=== PATIENT | male | born 1980 | race African-American/Black ===

== ENCOUNTER 2016-10-29 08:45 | Emergency (ER) | payer SELFPAY ==
[2016-10-29] MEDS ORDERED: IBUPROFEN 800 MG TABLET PO ONE ×2 (09:21→14:40)
[2016-10-29] MEDS ORDERED: CYCLOBENZAPRINE HCL 10 MG TABLET PO ONE (09:21)
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
[2016-10-29 13:17] LABS: ABSOLUTE BASOPHILS # (AUTO) 0.1 10^3/uL (0.0-0.2); ABSOLUTE EOSINOPHILS # (AUTO) 0.2 10^3/uL (0.0-0.6); ABSOLUTE LYMPHOCYTES (AUTO) 2.6 10^3/uL (0.5-4.7); ABSOLUTE MONOCYTES (AUTO) 0.7 10^3/uL (0.1-1.4); ABSOLUTE NEUT (AUTO) 9.3 10^3/uL (1.7-8.2); BASOPHILS % (AUTO) 0.4 % (0-2); EOSINOPHILS % (AUTO) 1.7 % (0-6); HEMATOCRIT 46.6 % (37.9-51.0); HEMOGLOBIN 14.7 g/dL (13.5-17.0); HGB HCT DIFFERENCE -2.5; MEAN CORPUSCULAR HEMOGLOBIN 27.6 pg (27.0-33.4); MEAN CORPUSCULAR HGB CONC 31.6 g/dL (32.0-36.0); MEAN CORPUSCULAR VOLUME 87 fl (80-97); MONOCYTES % (AUTO) 5.3 % (3-13); RED BLOOD COUNT 5.34 10^6/uL (4.35-5.55); RED CELL DISTRIBUTION WIDTH 12.9 % (11.5-14.0); SEGMENTED NEUTROPHILS % (AUTO) 72.6 % (42-78); WHITE BLOOD COUNT 12.8 10^3/uL (4.0-10.5)
[2016-10-29 13:21] LABS: APPEARANCE,URINE CLEAR; BILIRUBIN,URINE NEGATIVE (NEGATIVE); GLUCOSE, URINE NEGATIVE (NEGATIVE); KETONES,URINE NEGATIVE (NEGATIVE); LEUKOCYTE ESTERASE,URINE NEGATIVE (NEGATIVE); NITRITE,URINE NEGATIVE (NEGATIVE); PROTEIN,URINE NEGATIVE (NEGATIVE); URINE SPECIFIC GRAVITY 1.008; UROBILINOGEN,URINE NEGATIVE mg/dL (<2.0)
[2016-10-29 13:38] LABS: URINE BARBITURATES SCREEN NEGATIVE; URINE METHADONE SCREEN NEGATIVE; URINE PHENCYCLIDINE SCREEN NEGATIVE
[2016-10-29 15:33] LABS: ALANINE AMINOTRANSFERASE 26 U/L (21-72); ALBUMIN 4.2 g/dL (3.5-5.0); ALKALINE PHOSPHATASE 42 U/L (38-126); ANION GAP 10 (5-19); ASPARTATE AMINO TRANSFERASE 23 U/L (17-59); BILIRUBIN,TOTAL 1.7 mg/dL (0.2-1.3); BLOOD UREA NITROGEN 11 mg/dL (7-20); CALCIUM 9.6 mg/dL (8.4-10.2); CARBON DIOXIDE 27 mmol/L (22-30); CHLORIDE 103 mmol/L (98-107); CREATININE RESULT 0.92 mg/dL (0.52-1.25); GLUCOSE 78 mg/dL (75-110); POTASSIUM 4.1 mmol/L (3.6-5.0); SODIUM 139.8 mmol/L (137-145); TOTAL PROTEIN 6.9 g/dL (6.3-8.2)
[2016-10-29 15:37] LABS: ALCOHOL < 10 mg/dL (NONE DETECTED)
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
--- NOTE | 2016-10-29 18:56 | EKG REPORT ---
SEVERITY:- ABNORMAL ECG - SINUS BRADYCARDIA PROBABLE LEFT VENTRICULAR HYPERTROPHY : Confirmed by: Brenden Molina MD 29-Oct-2016 18:56:01
[2016-10-29] MEDS ORDERED: LORAZEPAM 1 MG TABLET PO ONE (20:25)
[2016-10-29] MEDS ORDERED: CARBAMAZEPINE 200 MG TABLET PO SCH (20:30)
--- NOTE | 2016-10-30 09:16 | ER Document Report ---
Doctor's Note Notes: 10/30/16 09:16 Patient seen this morning in mental health rounds. Has no complaints. Results and vital signs reviewed. Awaiting psychiatric disposition. 10/30/16 12:41 Psychiatric team has made some med recommendations. Orders placed.
--- NOTE | 2016-10-30 11:57 | PSYCHOLOGICAL NOTE ---
Psych Note - Psych Note Psych Note: Clinician conducted check in with patient. Impression\\plan on was that the patient was recommended for IVC; he is currently has impaired insight, judgment and impulse control is a danger to himself. Reevaluation was conducted. Patient states that he is feeling much better this morning because his girlfriend told him that she might be . He continued disclosed that he is very excited about this; to be the father of his biological child. He continued disclosed concern on when he will be released because his girlfriend's daughter has been talking to an older man and they are to meet a calender supervisor today to discuss this. He continued disclosed that he understands how things work now. He spoke with his father and his father told him to stop telling "us" what he is thinking; "keep conversations A and B" so people do not misunderstand him. Patient continued to disclose concerns that he has been unable to eat the food provided because he does not eat pork or food that has been not been prepared in front of him. When asked if the patient would like his light on or off upon the conclusion of the evaluation patient stated "I don't know how to answer you, if I give you the wrong answer you might hold it against me." Patient is recommended to continue under IVC his continued delusions impair his ability of insight judgment and impulse control is a danger to himself. Patient is recommended for placement for inpatient treatment. Dr. Gibbons was consulted on this patient; tending physician is in agreement with recommendations and disposition.
[2016-10-30] MEDS ORDERED: ZIPRASIDONE MESYLATE INJ/PF 20 MG SDV IM PRN (12:02)
[2016-10-30] MEDS ORDERED: BENZTROPINE MESYLATE INJ 2 MG/2 ML AMPULE IM SCH (12:22)
[2016-10-30] MEDS: HALOPERIDOL LACTATE INJ 5 MG/1 ML VIAL IM SCH (12:46)
[2016-10-30] MEDS ORDERED: DIPHENHYDRAMINE HCL 50 MG/ML VIAL ONE (13:23)
[2016-10-30] MEDS ORDERED: CARBAMAZEPINE 200 MG TABLET PO SCH (18:00)
[2016-10-31] MEDS ORDERED: BENZTROPINE MESYLATE INJ 2 MG/2 ML AMPULE IM SCH (10:00)
[2016-10-31] MEDS ORDERED: HALOPERIDOL LACTATE INJ 5 MG/1 ML VIAL IM SCH (12:00)
[2016-10-31] MEDS: HALOPERIDOL LACTATE INJ 5 MG/1 ML VIAL IM SCH ×2 (12:10)
[2016-10-31 12:20] VITALS: BP 147/94
--- NOTE | 2016-10-31 12:44 | PSYCHOLOGICAL NOTE ---
Psych Note - Psych Note Psych Note: Clinician conducted reevaluation. Patient is recommended for rescind of IVC is considered psychiatrically cleared for discharge. Patient was able to discuss his difficulties in communication. He continued to discuss that he does not remember the first round of medications he received however he does remember receiving some last night. Patient denies suicidal homicidal ideations; no delusions are currently noted. Patient will follow-up with out patient mental health services through [facility]. Patient's girlfriend Izzy agrees to be patient's safety resource. Patient is psychiatrically cleared for discharge. Dr. Gibbons was consulted on this patient; attending physician is in agreement with recommendations and disposition.
--- NOTE | 2016-10-31 12:55 | ER Document Report ---
Doctor's Note Notes: 10/31/16 12:54 Rounds: Chart reviewed and patient interviewed. Vital signs remained stable. Lab studies were only remarkable for having a white count of 12,800 and a bilirubin level of 1.7 with normal LFTs. Also positive for marijuana on his drug screen. Patient is doing much better and mental health feels that he can be discharged home for outpatient follow-up at [facility] Wednesday, as an outpatient. Being discharged on Haldol and Cogentin. Ashvin Washington M.D.
== END 2016-10-31 13:00 | disposition home or self-care (01) ==
LOC: ER 08:45
DX: R45.851 Suicidal ideations (principal); S16.1XXA Strain of muscle, fascia and tendon at neck level, initial encounter; F17.210 Nicotine dependence, cigarettes, uncomplicated; W01.0XXA Fall on same level from slipping, tripping and stumbling without subsequent striking against object, initial encounter; F32.9 Major depressive disorder, single episode, unspecified; F12.99 Cannabis use, unspecified with unspecified cannabis-induced disorder
CPT/HCPCS: 93005; 99285; 96372; 36415; 80307 ×4; 85025; 80053; 81001; 72040; 93010; J0515; J1630 ×2

== ENCOUNTER 2017-08-20 14:29 | Emergency (ER) | payer SELFPAY ==
--- NOTE | 2017-08-20 15:22 | ER Document Report ---
ED General - General Chief Complaint: Low Blood Sugar Stated Complaint: CHEST PAIN Time Seen by Provider: 08/20/17 15:02 Notes: A 37-year-old male was at the dentist for a infected wisdom tooth. Was seen by the dentist but the dentist decided that the extraction was going to be too complicated to put him on some antibiotics and told him he needed to see a oral surgeon. Given some Tylenol with codeine and a clindamycin in the office. Before he could leave the office he passed out. Ambulance arrived. Blood sugar was 60 IV was established by EMS. Please see run report. Patient complaining of pain in the left lower wisdom tooth. Prior history of diabetes. Not on any medications other than Tylenol with codeine and clindamycin. States that he has not been eating because it hurts too bad to eat. Does state that he has a burning in his chest that goes from his tooth down to his chest and into his abdomen. Offered patient fluids and a workup but patient states all he wants is the IV to be removed and wants to go home. Does not want anything for pain. Does not want IV fluids. Does not want any workup done today. TRAVEL OUTSIDE OF THE [place] IN LAST 30 DAYS: No - HPI Onset: Just prior to arrival Onset/Duration: Sudden - Related Data Allergies/Adverse Reactions: No Known Allergies Allergy (Verified 08/20/17 00:34) Past Medical History - General Information source: Patient - Social History Smoking Status: Smoker,Current Status Unk Frequency of alcohol use: None Drug Abuse: None Lives with: Spouse/Significant other Family History: Reviewed & Not Pertinent Neurological Medical History: Reports: Hx Seizures Renal/ Medical History: Denies: Hx Peritoneal Dialysis Review of Systems - Review of Systems Constitutional: No symptoms reported, Weakness EENT: No symptoms reported, Other - Dental pain Cardiovascular: No symptoms reported Respiratory: No symptoms reported Gastrointestinal: No symptoms reported Genitourinary: No symptoms reported Male Genitourinary: No symptoms reported Musculoskeletal: No symptoms reported Skin: No symptoms reported Hematologic/Lymphatic: No symptoms reported Neurological/Psychological: No symptoms reported Physical Exam - Vital signs Vitals: Temp Pulse Resp BP Pulse Ox 97.5 F 57 L 18 124/93 H 100 08/20/17 15:43 08/20/17 15:43 08/20/17 15:43 08/20/17 15:43 08/20/17 15:43 Interpretation: Normal - General General appearance: Appears well, Alert - HEENT Head: Normocephalic, Atraumatic Eyes: Normal Pupils: PERRL Mucous membranes: Moist - There is a obvious dental caries of the left lower molar. No obvious abscess. - Respiratory Respiratory status: No respiratory distress Chest status: Nontender Breath sounds: Normal Chest palpation: Normal - Cardiovascular Rhythm: Regular Heart sounds: Normal auscultation Murmur: No - Abdominal Inspection: Normal Distension: No distension Bowel sounds: Normal Tenderness: Nontender Organomegaly: No organomegaly - Back Back: Normal, Nontender - Extremities General upper extremity: Normal inspection, Nontender, Normal color, Normal ROM , Normal temperature General lower extremity: Normal inspection, Nontender, Normal color, Normal ROM , Normal temperature, Normal weight bearing. No: Lashaun's sign - Neurological Neuro grossly intact: Yes Cognition: Normal Orientation: AAOx4 [place] Coma Scale Eye Opening: Spontaneous [place] Coma Scale Verbal: Oriented [place] Coma Scale Motor: Obeys Commands [place] Coma Scale Total: 15 Speech: Normal Motor strength normal: LUE, RUE, LLE, RLE Sensory: Normal - Psychological Associated symptoms: Normal affect, Normal mood - Skin Skin Temperature: Warm Skin Moisture: Dry Skin Color: Normal Course - Re-evaluation Re-evalutation: 08/20/17 15:39 Patient likely a little hypoglycemic because he has not been eating. I wanted to give patient some IV fluids, Toradol, chest x-ray but patient does not want any of this at this time. Wants some orange juice and wants to go home. Will DC at this time. 08/20/17 17:16 Chest X-Ray 08/20/17 15:55 IMPRESSION: NO SIGNIFICANT RADIOGRAPHIC FINDING IN THE CHEST. - Vital Signs Vital signs: Temp Pulse Resp BP Pulse Ox 97.5 F 57 L 18 124/93 H 100 08/20/17 15:43 08/20/17 15:43 08/20/17 15:43 08/20/17 15:43 08/20/17 15:43 - EKG Interpretation by Hi EKG shows normal: Sinus rhythm, [place], Intervals, QRS Complexes, ST-T Waves Discharge - Discharge Clinical Impression: Hypoglycemia, Dental caries Condition: Good Disposition: HOME, SELF-CARE Instructions: Hypoglycemia ([facility]), Dental Infection or Abscess ([facility]) Additional Instructions: Please make sure that you are at least getting liquids with some calories. Try juice, Ensure or other meal replacement drinks to make sure that you are getting calories and sugar. Your blood sugar was a little low this morning when EMS arrived. I have included some information regarding some clinics here in town which may be able to assist you with dental and medical needs. If you have any further concerns please return to the emergency department. Referrals: [facility] [Provider Group] - Follow up as needed [facility] [Provider Group] - Follow up as needed
--- NOTE | 2017-08-20 16:27 | RADIOLOGY REPORT (SQ) ---
EXAM DESCRIPTION: CHEST PA/LAT COMPLETED DATE/TIME: 08/20/2017 4:11 pm REASON FOR STUDY: chest pain COMPARISON: 09/14/2016 EXAM PARAMETERS: NUMBER OF VIEWS: two views TECHNIQUE: Digital Frontal and Lateral radiographic views of the chest acquired. RADIATION DOSE: NA LIMITATIONS: none FINDINGS: LUNGS AND PLEURA: No opacities, masses or pneumothorax. No pleural effusion. MEDIASTINUM AND HILAR STRUCTURES: No masses or contour abnormalities. HEART AND VASCULAR STRUCTURES: Heart normal size. No evidence for failure. BONES: No acute findings. HARDWARE: None in the chest. OTHER: No other significant finding. IMPRESSION: NO SIGNIFICANT RADIOGRAPHIC FINDING IN THE CHEST. TECHNICAL DOCUMENTATION: JOB ID: [id number] [employer]- All Rights Reserved
[2017-08-20 17:36] VITALS: BP 121/75
--- NOTE | 2017-08-20 18:33 | EKG REPORT ---
SEVERITY:- NORMAL ECG - SINUS RHYTHM : Confirmed by: Brenden Molina MD 20-Aug-2017 18:32:44
== END 2017-08-20 17:44 | disposition home or self-care (01) ==
LOC: ER 14:29
DX: K02.9 Dental caries, unspecified (principal); E11.649 Type 2 diabetes mellitus with hypoglycemia without coma; R07.9 Chest pain, unspecified; K08.89 Other specified disorders of teeth and supporting structures; F17.200 Nicotine dependence, unspecified, uncomplicated; Z79.899 Other long term (current) drug therapy
CPT/HCPCS: 71020; 82962; 93005; 93010; 99284

== ENCOUNTER 2017-09-11 12:39 | Emergency (ER) | payer SELFPAY ==
[2017-09-11] MEDS ORDERED: DEXAMETHASONE SOD PHOS INJ 10 MG/1 ML VIAL IM ONE (14:19)
[2017-09-11] MEDS ORDERED: KETOROLAC TROMETHAMINE 60 MG/2 ML SDV IM ONE (14:19)
[2017-09-11] MEDS ORDERED: CYCLOBENZAPRINE HCL 10 MG TABLET PO ONE (14:19)
--- NOTE | 2017-09-11 14:26 | ER Document Report ---
ED Neck/Back Problem - General Chief Complaint: Neck and Upper Back Pain Stated Complaint: NECK AND BACK PAIN NUMBNESS Time Seen by Provider: 09/11/17 14:09 Mode of Arrival: Ambulatory Information source: Patient Notes: 37-year-old male presents to ED for complaint of neck and upper back pain for the last 3 days. States he was lifting furniture 3 days ago and has had severe pain in his neck and back since then. States it is hurts to turn or bend his neck . TRAVEL OUTSIDE OF THE [place] IN LAST 30 DAYS: No - HPI Patient complains to provider of: Pain, Neck, Upper back Onset: Other - 3 days Onset: Sudden Timing: Waxing and waning Quality of pain: Burning, Sharp Severity: Severe Pain Level: 5 Context: Bending, Turning Recent injury: Possibly Associated symptoms: Upper back pain - and neck. denies: Constipation, Fever, Incontinence, Motor loss, Numbness/tingling, Radiation to arm, Radiation to chest, Radiation to leg, Sensory loss, Lower back pain Exacerbated by: Movement of neck Relieved by: Nothing Similar symptoms previously: Yes Recently seen / treated by doctor: Yes - Related Data Allergies/Adverse Reactions: No Known Allergies Allergy (Verified 09/11/17 12:40) Past Medical History - General Information source: Patient - Social History Smoking Status: Current Every Day Smoker Cigarette use (# per day): No Chew tobacco use (# tins/day): No Smoking Education Provided: No Frequency of alcohol use: None Drug Abuse: None Lives with: Spouse/Significant other Family History: Reviewed & Not Pertinent Patient has suicidal ideation: No Patient has homicidal ideation: No - Past Medical History Cardiac Medical History: Reports: None Pulmonary Medical History: Reports: None EENT Medical History: Reports: None Neurological Medical History: Reports: Hx Seizures Endocrine Medical History: Reports: None Renal/ Medical History: Reports: None Malignancy Medical History: Reports None GI Medical History: Reports: None Musculoskeltal Medical History: Reports None Skin Medical History: Reports None Psychiatric Medical History: Reports: None Traumatic Medical History: Reports: None Infectious Medical History: Reports: None Surgical Hx: Negative Past Surgical History: Reports: None Review of Systems - Review of Systems Constitutional: No symptoms reported EENT: No symptoms reported Cardiovascular: No symptoms reported Respiratory: No symptoms reported Gastrointestinal: No symptoms reported Genitourinary: No symptoms reported Male Genitourinary: No symptoms reported Musculoskeletal: Back pain, Muscle pain, Muscle stiffness, Neck pain Skin: No symptoms reported Hematologic/Lymphatic: No symptoms reported Neurological/Psychological: No symptoms reported -: Yes All other systems reviewed and negative Physical Exam - Vital signs Vitals: Temp Pulse Resp BP Pulse Ox 98.0 F 63 16 128/84 H 99 09/11/17 12:48 09/11/17 12:48 09/11/17 12:48 09/11/17 12:48 09/11/17 12:48 Interpretation: Normal - General General appearance: Appears well, Alert - HEENT Head: Normocephalic, Atraumatic Eyes: Normal Pupils: PERRL - Respiratory Respiratory status: No respiratory distress Chest status: Nontender Breath sounds: Normal Chest palpation: Normal - Cardiovascular Rhythm: Regular Heart sounds: Normal auscultation Murmur: No - Abdominal Inspection: Normal Distension: No distension Bowel sounds: Normal Tenderness: Nontender Organomegaly: No organomegaly - Back Back: Normal, Tender - Neck upper back left shoulder, Vertebra tenderness. No: Deformity/step-off, CVA tenderness, Scars, Scoliosis, Wounds, Other - Extremities General upper extremity: Normal inspection, Normal color, Normal ROM, Normal temperature General lower extremity: Normal inspection, Nontender, Normal color, Normal ROM , Normal temperature, Normal weight bearing. No: Lashaun's sign Shoulder: Tender - Neurological Neuro grossly intact: Yes Cognition: Normal Orientation: AAOx4 [place] Coma Scale Eye Opening: Spontaneous [place] Coma Scale Verbal: Oriented [place] Coma Scale Motor: Obeys Commands [place] Coma Scale Total: 15 Speech: Normal Motor strength normal: LUE, RUE, LLE, RLE Sensory: Normal - Psychological Associated symptoms: Normal affect, Normal mood - Skin Skin Temperature: Warm Skin Moisture: Dry Skin Color: Normal Course - Re-evaluation Re-evalutation: 09/11/17 16:19 No acute changes known to CT of the head or neck. These were discussed with patient and a written report of the PET CT is given to the patient. Patient was treated with Toradol Decadron and Flexeril in the emergency room and discharged home with prescription for naproxen and Flexeril. Patient was given a list of local primary doctors and instructed to follow-up with primary doctor. Patient is given instructions for shoulder exercises hot and cold packs. - Vital Signs Vital signs: Temp Pulse Resp BP Pulse Ox 98.3 F 58 L 18 128/105 H 96 09/11/17 16:32 09/11/17 16:32 09/11/17 16:32 09/11/17 16:32 09/11/17 16:32 - Diagnostic Test Radiology reviewed: Image reviewed, Reports reviewed Discharge - Discharge Clinical Impression: Upper back pain Cervical strain, acute Qualifiers: Encounter type: initial encounter Qualified Code(s): S16.1XXA - Strain of muscle, fascia and tendon at neck level, initial encounter Condition: Stable Disposition: HOME, SELF-CARE Instructions: Family Physicians / Practices Additional Instructions: NECK INJURY (CERVICAL STRAIN): You have a neck strain. This is an injury to the muscles and ligaments in the neck. There is no evidence of a fracture of the neck bones. Also, no injury to the spinal cord or nerve roots was detected. Usually, stiffness and pain INCREASE for the first 24-48 hours after the injury. The pain will gradually resolve and the neck will become more mobile. Most patients are back at work or school within a few days. Typically, complete healing takes about two or three weeks. The usual initial treatment is rest and cold packs. A neck collar may be placed to keep the muscles of the neck at rest. Antiinflammatory and muscle relaxing medication are often used to reduce the spasm and irritation. You should call the doctor, or go to the hospital, if you develop numbness or weakness in any extremity, problems with your bladder or bowel, or pain radiating down the arms. MUSCLE STRAIN: You have strained a muscle -- torn the fibers within the muscle. This often occurs with strenuous exertion, or during an injury that suddenly stretches the muscle. The seriousness of a strain varies. Some strains heal within days, others cause problems for months. X-rays cannot show a muscle strain. X-rays are taken only if symptoms suggest that a fracture could be present. The usual treatment of a muscle strain is rest and ice packs. Sometimes, a sling, splint, or crutches may be necessary to rest the muscle. The muscle can be used again once pain subsides. Severe strains require a special exercise and stretching program to prevent permanent stiffness and disability. Your doctor will advise you if this will be necessary. Call the doctor immediately if pain or swelling becomes severe, or if numbness or discoloration develop. USE OF TYLENOL (ACETAMINOPHEN): Acetaminophen may be taken for pain relief or fever control. It's much safer than aspirin, offering a wider range of "safe" dosages. It is safe during . Some brand names are Tylenol, Panadol, Datril, Anacin 3, Tempra, and Liquiprin. Acetaminophen can be repeated every four hours. The following are maximum recommended dosages: WEIGHT Dose Drops Elixir Chewable( 80mg) (LBS.) drprs=droppers tsp=teaspoon 6 40 mg 0.4 ml (1/2) 6-11 80 mg 0.8 ml (full) tsp 1 tab 12-16 120 mg 1 1/2 drprs 3/4 tsp 1 1/2 tabs 17-23 160 mg 2 drprs 1 tsp 2 tabs 24-30 240 mg 3 drprs 1 1/2 tsp 3 tabs 30-35 320 mg 2 tsp 4 tabs 36-41 360 mg 2 1/4 tsp 4 1/2 tabs 42-47 400 mg 2 1/2 tsp 5 tabs 48-53 480 mg 3 tsp 6 tabs 54-59 520 mg 3 1/4 tsp 6 1/2 tabs 60-64 560 mg 3 1/2 tsp 7 tabs 65-70 600 mg 3 3/4 tsp 7 1/2 tabs 71-76 640 mg 4 tsp 8 tabs 77-82 720 mg 4 1/2 tsp 9 tabs 83-88 800 mg 5 tsp 10 tabs >89 pounds or adults 650 mg to 900 mg Acetaminophen can be repeated every four hours. Maximum dose not to exceed 4000 mg a day. These maximum recommended dosages are slightly higher than the dosages written on the product container, but these dosages are very safe and below the toxic dosage for acetaminophen. ICE PACKS: Apply ice packs frequently against the painful area. Many different schedules are recommended, such as "20 minutes on, 20 minutes off" or "one hour ice, two hours rest." If you need to work, you may need to go longer between ice treatments. You should plan to have the area ice packed AT LEAST one fourth of the time. The ice should be applied over the wrap, tape, or splint, or over a layer of cloth -- not directly against the skin. Some ice bags have a built-in cloth and can be put directly on the skin. WARM PACKS: After approximately two days, apply gentle heat (such as a heating pad or hot water bottle) for about 20 to 30 minutes about every two hours -- at least four times daily. Warmth and elevation will help you make a more rapid recovery , and will ease the pain considerably. Do not use HOT heat, and never apply heat for longer than 30 minutes. The continuous heat can invisibly damage skin and muscles -- even when no burn is seen on the surface. Damaged muscles can make you MORE sore. MUSCLE RELAXERS: Muscle relaxing medications are usually prescribed for acute muscle spasm or injury to the neck and back. They are often combined with antiinflammatory pain medication for increased relief. You may stop the muscle relaxer when the pain and stiffness have improved. Start the medication again if spasms recur. Muscle relaxers may cause drowsiness, especially with the first dose. Do not operate machinery or drive while under the effects of the medication. Most muscle relaxers last up to 24 hours. Do not combine the medication with alcohol. STEROID MEDICATION: You have been given an injection of medicine of the cortisone/steroid class. This medication is used to control inflammation or allergy. It is often continued as a pill for a short period of time, until the acute process subsides. There are usually no side effects from short-term use of cortisone-like medications. Some persons feel an increased sense of well-being and are not sleepy at bedtime. Long-term use of cortisone medications is best avoided, unless required for a severe condition. If your condition does not remit, or relapses after the course of corticosteroid medication, you should consult your physician. Toradol Injection You have been given an injection of ketorolac tromethamine (Toradol). This is an excellent, safe drug for pain control. It also has potent antiinflammatory action. You should have significant pain relief within about one hour. Toradol is not addicting and is non-sedating. It does not interfere with driving or work. Call or return if you develop itching, hives, shortness of breath, or rash. Exercise Program for the Shoulder Since the shoulder moves in so many directions, the joint attachment is weak. Muscles provide most of the stability to the shoulder. You must exercise your shoulder to prevent painful instability or stiffening. PASSIVE - These may be begun within a few days of the injury. While standing, lean forward, allowing the arm to hang down towards the floor. Move the arm in small circles while slowly twisting your chest towards and away from the hanging arm. Do this for one minute. ACTIVE - These may be performed when the doctor gives permission. Begin with the arms at the sides. Raise the arms forward (shoulder's width apart) until they reach shoulder level. Then slowly swing both arms back until they are aiming straight out away from each other. Then bring them forward again, and finally, lower them to your sides. Repeat 20 to 30 times. As you improve, put weights in your hands for the exercise. Start with one pound, and work up to 10 pounds. Never use more than is comfortable. Athletes may work up to 30 pounds. FOLLOW-UP CARE: If you have been referred to a physician for follow-up care, call the physician s office for an appointment as you were instructed or within the next two days. If you experience worsening or a significant change in your symptoms, notify the physician immediately or return to the Emergency Department at any time for re-evaluation. Prescriptions: Cyclobenzaprine HCl [Flexeril 10 mg Tablet] 10 mg PO TIDP PRN #15 tab PRN Reason: Naproxen 500 mg PO BID #14 tablet Forms: Elevated Blood Pressure, Smoking Cessation Education
--- NOTE | 2017-09-11 15:32 | RADIOLOGY REPORT (SQ) ---
EXAM DESCRIPTION: CT CERVICAL SPINE WITHOUT COMPLETED DATE/TIME: 09/11/2017 3:16 pm REASON FOR STUDY: Lifting furniture s spine tenderness COMPARISON: None. TECHNIQUE: Axial images acquired through the cervical spine without intravenous contrast. Images re viewed with lung, soft tissue and bone windows. Reconstructed coronal and sagittal MPR images review ed. Images stored on PACS. All CT scanners at this facility use dose modulation, iterative reconstruction, and/or weight based d osing when appropriate to reduce radiation dose to as low as reasonably achievable (ALARA). [facility]: Dose Right [facility]: CareDose [facility]: Dose Right [facility]: Teradose 4D [facility]: [employer] RADIATION DOSE: mGy. LIMITATIONS: None. FINDINGS: ALIGNMENT: Anatomic. MINERALIZATION: Normal. VERTEBRAL BODIES: No fractures or dislocation. DISCS: No significant disc disease. FACETS, LATERAL MASSES, POSTERIOR ELEMENTS: No fractures. No dislocation. No acute findings. HARDWARE: None in the spine. VISUALIZED RIBS: No fractures. LUNG APICES AND SOFT TISSUES: No significant or acute findings. OTHER: No other significant finding. IMPRESSION: NO ACUTE OR SIGNIFICANT FINDINGS IN THE CERVICAL SPINE. TECHNICAL DOCUMENTATION: JOB ID: [id number] Quality ID # [id number]: Final reports with documentation of one or more dose reduction techniques (e.g., Au tomated exposure control, adjustment of the mA and/or kV according to patient size, use of iterative reconstruction technique) 2010 [employer]- All Rights Reserved
--- NOTE | 2017-09-11 15:33 | RADIOLOGY REPORT (SQ) ---
EXAM DESCRIPTION: CT HEAD WITHOUT COMPLETED DATE/TIME: 09/11/2017 3:16 pm REASON FOR STUDY: twitching in ct room COMPARISON: None. TECHNIQUE: Axial images acquired through the brain without intravenous contrast. Images reviewed wi th bone, brain and subdural windows. Images stored on PACS. All CT scanners at this facility use dose modulation, iterative reconstruction, and/or weight based d osing when appropriate to reduce radiation dose to as low as reasonably achievable (ALARA). [facility]: Dose Right [facility]: CareDose [facility]: Dose Right [facility]: Teradose 4D [facility]: [employer] RADIATION DOSE: mGy. LIMITATIONS: None. FINDINGS: VENTRICLES: Normal size and contour. CEREBRUM: No masses. No hemorrhage. No midline shift. No evidence for acute infarction. Normal gra y/white matter differentiation. No areas of low density in the white matter. CEREBELLUM: No masses. No hemorrhage. No alteration of density. No evidence for acute infarction. EXTRAAXIAL SPACES: No fluid collections. No masses. ORBITS AND GLOBE: No intra- or extraconal masses. Normal contour of globe without masses. CALVARIUM: No fracture. PARANASAL SINUSES: Opacification of the sphenoid sinus. SOFT TISSUES: No mass or hematoma. OTHER: No other significant finding. IMPRESSION: NORMAL BRAIN CT WITHOUT CONTRAST. SPHENOID SINUS DISEASE. EVIDENCE OF ACUTE STROKE: NO. COMMENT: Quality ID # [id number]: Final reports with documentation of one or more dose reduction techniques (e.g., Automated exposure control, adjustment of the mA and/or kV according to patient size, use of iterative reconstruction technique) TECHNICAL DOCUMENTATION: JOB ID: [id number] [employer]- All Rights Reserved
[2017-09-11 16:33] VITALS: BP 128/105
== END 2017-09-11 16:31 | disposition home or self-care (01) ==
LOC: ER 12:39
DX: S16.1XXA Strain of muscle, fascia and tendon at neck level, initial encounter (principal); M54.2 Cervicalgia; M54.89 Other dorsalgia; X50.0XXA Overexertion from strenuous movement or load, initial encounter; F17.200 Nicotine dependence, unspecified, uncomplicated
CPT/HCPCS: 99284; 96372; 82962; 70450; 72125; J1885; J1100

== ENCOUNTER 2017-11-13 20:01 | Emergency (ER) | payer SELFPAY ==
--- NOTE | 2017-11-13 20:18 | ER Document Report ---
ED Medical Screen (RME) - General Chief Complaint: Breathing Difficulty Stated Complaint: MEDICINE LODGED IN THROAT Time Seen by Provider: 11/13/17 20:15 Mode of Arrival: Ambulatory Information source: Patient TRAVEL OUTSIDE OF THE [place] IN LAST 30 DAYS: No - HPI Notes: 11/13/17 20:17 20 minutes prior to arrival patient took a Motrin and he believes it stuck in his throat. He is tolerating saliva. He states he is very uncomfortable and he has to breathe through his nose. I have greeted and performed a rapid initial assessment of this patient. A comprehensive ED assessment and evaluation of the patient, analysis of test results and completion of the medical decision making process will be conducted by additional ED providers. PHYSICAL EXAMINATION: GENERAL: Well-appearing, well-nourished and in mild distress. HEAD: Atraumatic, normocephalic. EYES: Pupils equal round extraocular movements intact, conjunctiva are normal. ENT: Nares patent. Tolerating his saliva NECK: Normal range of motion LUNGS: No respiratory distress Musculoskeletal: Normal range of motion NEUROLOGICAL: Normal speech, normal gait. PSYCH: Normal mood, normal affect. SKIN: Warm, Dry, normal turgor, no rashes or lesions noted. - Related Data Allergies/Adverse Reactions: No Known Allergies Allergy (Verified 11/13/17 20:03) Past Medical History Neurological Medical History: Reports: Hx Seizures Renal/ Medical History: Denies: Hx Peritoneal Dialysis Physical Exam - Vital signs Vitals: Temp Pulse Resp BP Pulse Ox 97.5 F 102 H 22 H 154/96 H 99 11/13/17 20:06 11/13/17 20:06 11/13/17 20:06 11/13/17 20:06 11/13/17 20:06 Course - Vital Signs Vital signs: Temp Pulse Resp BP Pulse Ox 97.5 F 102 H 22 H 154/96 H 99 11/13/17 20:06 11/13/17 20:06 11/13/17 20:06 11/13/17 20:06 11/13/17 20:06
[2017-11-13] MEDS ORDERED: GLUCAGON,HUMAN RECOMB 1 MG INJ IM PRN (20:38)
--- NOTE | 2017-11-13 20:47 | RADIOLOGY REPORT (SQ) ---
EXAM DESCRIPTION: SOFT TISSUE NECK COMPLETED DATE/TIME: 11/13/2017 8:36 pm REASON FOR STUDY: feels like motrin stuck in throat COMPARISON: None. NUMBER OF VIEWS: Two views. TECHNIQUE: AP and lateral radiographic image of the soft tissues of the neck. LIMITATIONS: None. FINDINGS: EPIGLOTTIS: Normal. Contour normal. Aryepiglottic folds normal. PREVERTEBRAL SOFT TISSUES: Normal. No soft tissue swelling. SUBGLOTTIC AREA: Normal. No narrowing. RETROPHARYNGEAL SPACE: Normal. No soft tissue masses. BONES: No significant findings. LUNG APICES: Normal. OTHER: No radiopaque foreign body. No other significant finding. IMPRESSION: NEGATIVE STUDY OF THE SOFT TISSUES OF THE NECK. Please note that pharmaceutical tablets may not be radiopaque. TECHNICAL DOCUMENTATION: JOB ID: [id number] [employer]- All Rights Reserved
[2017-11-13] MEDS ORDERED: METOCLOPRAMIDE HCL ORAL SOLN 10 MG/10 ML UDCUP PO ONE (20:56)
[2017-11-13] MEDS ORDERED: MAG HYDROX/AL HYDROX/SIMETH SUSP 30 ML UDCUP PO ONE (20:56)
[2017-11-13] MEDS ORDERED: LIDOCAINE 2% VISCOUS SOLN 20 ML UDCUP PO ONE ×2 (20:56→21:44)
--- NOTE | 2017-11-13 21:48 | ER Document Report ---
ED General - General Chief Complaint: Breathing Difficulty Stated Complaint: MEDICINE LODGED IN THROAT Time Seen by Provider: 11/13/17 20:15 Mode of Arrival: Ambulatory Notes: Patient is a 37-year-old male who presents with a sensation of a pill being stuck in his throat after taking a naproxen tablet prior to arrival. States shortly after swallowing the tablet he felt like it was stuck in his throat. He states since that time he has had an aching, burning sensation in his throat. He said it is worsened by swallowing. Nothing improves the pain. No history of similar symptoms in the past. He denies any difficulty breathing, swallowing oral secretions and has tolerated water since onset of the symptoms. He has not seen his general doctor regarding today's concerns. TRAVEL OUTSIDE OF THE [place] IN LAST 30 DAYS: No - Related Data Allergies/Adverse Reactions: No Known Allergies Allergy (Verified 11/13/17 20:03) Past Medical History - General Information source: Patient - Social History Smoking Status: Former Smoker Frequency of alcohol use: None Drug Abuse: None Lives with: Spouse/Significant other Family History: Reviewed & Not Pertinent Patient has suicidal ideation: No Patient has homicidal ideation: No Neurological Medical History: Reports: Hx Seizures Renal/ Medical History: Denies: Hx Peritoneal Dialysis Review of Systems - Review of Systems Notes: Constitutional: Negative for fever. HENT: Positive for sore throat. Eyes: Negative for visual changes. Cardiovascular: Negative for chest pain. Respiratory: Negative for shortness of breath. Gastrointestinal: Negative for abdominal pain, vomiting or diarrhea. Genitourinary: Negative for dysuria. Musculoskeletal: Negative for back pain. Skin: Negative for rash. Neurological: Negative for headaches, weakness or numbness. 10 point ROS negative except as marked above and in HPI. Physical Exam - Vital signs Vitals: Temp Pulse Resp BP Pulse Ox 97.5 F 102 H 22 H 154/96 H 99 11/13/17 20:06 11/13/17 20:06 11/13/17 20:06 11/13/17 20:06 11/13/17 20:06 Interpretation: Tachycardic, Tachypneic Notes: PHYSICAL EXAMINATION: GENERAL: Well-appearing, well-nourished and in no acute distress. HEAD: Atraumatic, normocephalic. EYES: Pupils equal round and reactive to light, extraocular movements intact, sclera anicteric, conjunctiva are normal. ENT: nares patent, oropharynx clear without exudates. Moist mucous membranes. NECK: Normal range of motion, supple without lymphadenopathy LUNGS: Breath sounds clear to auscultation bilaterally and equal. No wheezes rales or rhonchi. HEART: Regular rate and rhythm without murmurs ABDOMEN: Soft, nontender, normoactive bowel sounds. No guarding, no rebound. No masses appreciated. EXTREMITIES: Normal range of motion, no pitting or edema. No cyanosis. NEUROLOGICAL: No focal neurological deficits. Moves all extremities spontaneously and on command. PSYCH: Anxious SKIN: Warm, Dry, normal turgor, no rashes or lesions noted. Course - Re-evaluation Re-evalutation: 11/13/17 21:45 Patient presents with signs and symptoms most consistent with an acute pill esophagitis. Patient has a sensation of ongoing pill lodgment within his esophagus although has no signs or symptoms of airway compromise. No stridor, tolerating oral secretions and water without any difficulty. Breath sounds are clear bilaterally. Vital signs at the time of my assessment are normal with oxygen saturation of 100% on room air, respiratory rate of 18, heart rate 98. Patient has had some improvement after receiving a GI cocktail. Soft tissue x- ray without any acute findings although it is noted that the pill could be radiopaque. Particular given that the pill patient's follow-up with naproxen I suspect that he does have an acute pill esophagitis in the setting of an NSAID. However, I do not believe there is any indication for an acute endoscopy or bronchoscopy given his overall well appearance, vitals, and clinical history. I have informed patient that he may continue to have a sensation of a pill being stuck in his throat for the next several days but that it should improve over that period of time. We have reviewed extensively that should he have any worsening of his breathing, become unable to tolerate fluids or have any other symptoms that are concerning he should return to the emergency department immediately. - Vital Signs Vital signs: Temp Pulse Resp BP Pulse Ox 97.5 F 102 H 18 134/91 H 98 11/13/17 20:06 11/13/17 20:06 11/13/17 22:14 11/13/17 22:14 11/13/17 22:14 - Diagnostic Test Radiology reviewed: Image reviewed, Reports reviewed Radiology results interpreted by me: 11/13/17 21:47 Soft tissue x-ray of the neck: No foreign body Discharge - Discharge Clinical Impression: Pill esophagitis Condition: Good Disposition: HOME, SELF-CARE Additional Instructions: Please return to the emergency department immediately if you become unable to swallow, difficulty breathing, have persistent vomiting, or any other symptoms that are worrisome to you.
[2017-11-13 22:28] VITALS: BP 134/91
== END 2017-11-13 22:18 | disposition home or self-care (01) ==
LOC: ER 20:01
DX: K20.8 Other esophagitis (principal); R06.00 Dyspnea, unspecified; Z87.891 Personal history of nicotine dependence
CPT/HCPCS: 99285; 96372; 70360; J1610; J3490

== ENCOUNTER 2018-03-16 14:58 | Emergency (ER) | payer SELFPAY ==
[2018-03-16 15:28] LABS: ABSOLUTE BASOPHILS # (AUTO) 0.1 10^3/uL (0.0-0.2); ABSOLUTE EOSINOPHILS # (AUTO) 0.4 10^3/uL (0.0-0.6); ABSOLUTE LYMPHOCYTES (AUTO) 5.4 10^3/uL (0.5-4.7); ABSOLUTE MONOCYTES (AUTO) 1.1 10^3/uL (0.1-1.4); ABSOLUTE NEUT (AUTO) 8.2 10^3/uL (1.7-8.2); BASOPHILS % (AUTO) 0.9 % (0-2); EOSINOPHILS % (AUTO) 2.5 % (0-6); HEMATOCRIT 51.9 % (37.9-51.0); HEMOGLOBIN 16.5 g/dL (13.5-17.0); LYMPHOCYTES % (AUTO) 35.4 % (13-45); MEAN CORPUSCULAR HEMOGLOBIN 28.2 pg (27.0-33.4); MEAN CORPUSCULAR HGB CONC 31.8 g/dL (32.0-36.0); MEAN CORPUSCULAR VOLUME 89 fl (80-97); MONOCYTES % (AUTO) 7.3 % (3-13); PLATELET COUNT 385 10^3/uL (150-450); RED BLOOD COUNT 5.85 10^6/uL (4.35-5.55); RED CELL DISTRIBUTION WIDTH 13.2 % (11.5-14.0); SEGMENTED NEUTROPHILS % (AUTO) 53.9 % (42-78); TOTAL CELLS COUNTED % (AUTO) 100 %; WHITE BLOOD COUNT 15.3 10^3/uL (4.0-10.5)
--- NOTE | 2018-03-16 15:36 | ER Document Report ---
ED General - General Chief Complaint: Psych Problem Stated Complaint: HOSPITAL SEIZURE/COMBATIVE Time Seen by Provider: 03/16/18 15:14 Notes: Patient was brought in by EMS after having been given Haldol, Benadryl, and Versed for combativeness, and there is mention that he may have had a seizure. He was noted to be what seemed to be hallucinating and scratching his face. At this time, patient is experiencing the effects of the medications he received and is becoming very sleepy. I am able to piece together that he says he has a history of seizures but he only takes medicines as needed. He says he was worked up for the seizures including a spinal tap a year or so ago. Says he has not slept all night and is very tired and sleepy. When asked if he has been diagnosed with bipolar disorder or manic disorder, patient says that he has been diagnosed as manic. Currently not on any medications for this condition. Says he supposed to be taking clindamycin for a broken tooth. TRAVEL OUTSIDE OF THE [place] IN LAST 30 DAYS: No - Related Data Allergies/Adverse Reactions: cat dander Allergy (Verified 03/16/18 15:10) Past Medical History - Social History Smoking Status: Unknown if Ever Smoked Frequency of alcohol use: None Family History: Reviewed & Not Pertinent Patient has suicidal ideation: No Patient has homicidal ideation: No Neurological Medical History: Reports: Hx Seizures Psychiatric Medical History: Reports: Hx Anxiety, Other - May be manic Review of Systems - Review of Systems -: Yes ROS unobtainable due to patient's medical condition - Patient is too sleepy to stay awake and answer an extensive list of ROS Constitutional: denies: Fever Physical Exam - Vital signs Vitals: Temp Pulse Resp BP Pulse Ox 97.8 F 111 H 20 125/62 93 03/16/18 15:07 03/16/18 15:07 03/16/18 15:07 03/16/18 15:07 03/16/18 15:07 Interpretation: Tachycardic - Heart rate 126 in triage. Notes: PHYSICAL EXAMINATION: GENERAL: Well-appearing, in no acute distress. Appears to be sleeping probably from the medications he has already received. HEAD: Atraumatic, normocephalic. EYES: Pupils equal round and reactive to light, extraocular movements intact. ENT: oropharynx clear without exudates. Moist mucous membranes. NECK: Normal range of motion, supple. LUNGS: Breath sounds clear and equal bilaterally. HEART: Regular rate and rhythm without murmurs. Heart rate 100 at bedside by my examination. ABDOMEN: Soft, nontender. No guarding or rebound. No masses. BACK: No tenderness throughout entire back. EXTREMITIES: Normal range of motion without pain. NEUROLOGICAL: Grossly normal nose is at the hospital in [facility]. PSYCH: Normal mood, normal affect. Post sedation. SKIN: Warm, dry, no rashes. Course - Vital Signs Vital signs: Temp Pulse Resp BP Pulse Ox 97.8 F 111 H 20 125/62 95 03/16/18 15:07 03/16/18 15:07 03/16/18 15:07 03/16/18 15:07 03/16/18 15:46 - Laboratory Result Diagrams: 03/16/18 14:48 03/16/18 14:48 Laboratory results interpreted by me: 03/16/18 03/16/18 03/16/18 14:48 14:48 15:45 WBC 15.3 H RBC 5.85 H Hct 51.9 H MCHC 31.8 L Absolute Lymphocytes 5.4 H Sodium 145.1 H Potassium 3.0 L* Carbon Dioxide 12 L Anion Gap 32 H Creatine Kinase 239 H Albumin 5.3 H Urine Protein 100 H Urine Blood SMALL H Urine Ascorbic Acid 20 H - EKG Interpretation by Me EKG shows normal: Sinus rhythm Rate: Tachycardia - Rate of 107. Rhythm: NSR Additional EKG results interpreted by me: 03/16/18 15:46 EKG read by machine as possible ST changes of pericarditis, but I do not agree and do not think this EKG suggest pericarditis. Discharge - Discharge Clinical Impression: Agitation Condition: Stable
[2018-03-16 15:43] LABS: ALANINE AMINOTRANSFERASE 34 U/L (21-72); ALBUMIN 5.3 g/dL (3.5-5.0); ALKALINE PHOSPHATASE 42 U/L (38-126); ASPARTATE AMINO TRANSFERASE 43 U/L (17-59); BILIRUBIN,DIRECT 0.4 mg/dL (0.0-0.4); BILIRUBIN,TOTAL 0.7 mg/dL (0.2-1.3); BLOOD UREA NITROGEN 8 mg/dL (7-20); CALCIUM 10.1 mg/dL (8.4-10.2); CHLORIDE 101 mmol/L (98-107); CREATINE KINASE 239 U/L (55-170); GLUCOSE 94 mg/dL (75-110)
[2018-03-16 15:48] LABS: ANION GAP 32 (5-19); CARBON DIOXIDE 12 mmol/L (22-30); SODIUM 145.1 mmol/L (137-145)
[2018-03-16 15:51] LABS: CREATINE KINASE MB 1.06 ng/mL (<4.55)
[2018-03-16 16:01] LABS: TROPONIN I < 0.012 ng/mL
[2018-03-16 16:03] LABS: APPEARANCE,URINE CLEAR; BILIRUBIN,URINE NEGATIVE (NEGATIVE); COLOR,URINE YELLOW; GLUCOSE, URINE NEGATIVE (NEGATIVE); KETONES,URINE NEGATIVE (NEGATIVE); LEUKOCYTE ESTERASE,URINE NEGATIVE (NEGATIVE); NITRITE,URINE NEGATIVE (NEGATIVE); PROTEIN,URINE 100 mg/dL (NEGATIVE); URINE SPECIFIC GRAVITY 1.014; UROBILINOGEN,URINE NEGATIVE mg/dL (<2.0)
[2018-03-16] MEDS ORDERED: POTASSIUM CHLORIDE 10 MEQ TABLET.SA PO ONE (16:08)
[2018-03-16] MEDS: NORMAL SALINE 1000 ML 1,000 ML IV PRN ×2 (16:31→18:27)
[2018-03-16] MEDS ORDERED: BENZTROPINE MESYLATE 1 MG TABLET PO SCH (17:45)
--- NOTE | 2018-03-16 17:47 | PSYCHOLOGICAL NOTE ---
Psych Note - Psych Note Psych Note: Reason for consult: behavior Patient was brought in by EMS after having been given Haldol, Benadryl, and Versed for combativeness, and there is mention that he may have had a seizure. He was noted to be what seemed to be hallucinating and scratching his face. At this time, patient is experiencing the effects of the medications he received and is becoming very sleepy. I am able to piece together that he says he has a history of seizures but he only takes medicines as needed. He says he was worked up for the seizures including a spinal tap a year or so ago. Says he has not slept all night and is very tired and sleepy. When asked if he has been diagnosed with bipolar disorder or manic disorder, patient says that he has been diagnosed as manic. Patient disclosed that he has had bouts of depression but does not go to outpatient therapy because he does not have insurance. When asked if he takes medication he states "no the doctor says not to." Patient denies suicidal and homicidal ideation ideations stating "my girlfriend are trying to get . " Patient reports that he did drink vodka today however denies any other substance abuse. Patient is semi-alert and orientated to person, place, time and circumstance. Patient is struggling to stay awake during evaluation due to the medication provided by EMS. Chart review conducted Patient was seen October 29 2017 to October 31, 2017 by behavioral health team. Patient presented in psychosis; mixed delusions. At that time patient was also slightly combative. 292.0 (F12.99) substance abuse; marijuana per history R/O bipolar with psychotic features Impression\\plan: Patient is recommended for overnight mental health hold for observation. Patient was unable to fully engage with clinician because of the medications he received from EMS. Patient does deny suicidal and homicidal ideation however was unclear about his mental health history stating that the doctor told her not to take any medications. Patient reports drinking vodka today however his toxicology does not indicate any alcohol in his system. Patient has presented to [facility] ED in the past (October 29-2017) in psychosis with mixed delusions. Patient will need to be reevaluated when able to fully engage. Dr. Gibbons was consulted and the care and management this patient; attending physician is in agreement with her conditions and disposition.
[2018-03-16] MEDS: HALOPERIDOL 5 MG TABLET PO SCH (18:27)
--- NOTE | 2018-03-16 22:33 | EKG REPORT ---
SEVERITY:- BORDERLINE ECG - SINUS TACHYCARDIA PROBABLE LEFT ATRIAL ABNORMALITY NONDIAGNOSTIC ST ELEVATION : Confirmed by: Cheryl Rockwell MD 16-Mar-2018 22:32:15
--- NOTE | 2018-03-17 08:32 | PSYCHOLOGICAL NOTE ---
Psych Note - Psych Note Psych Note: Reason for consult: behavior Patient was brought in by EMS after having been given Haldol, Benadryl, and Versed for combativeness, and there is mention that he may have had a seizure. He was noted to be what seemed to be hallucinating and scratching his face. At this time, patient is experiencing the effects of the medications he received and is becoming very sleepy. I am able to piece together that he says he has a history of seizures but he only takes medicines as needed. He says he was worked up for the seizures including a spinal tap a year or so ago. Says he has not slept all night and is very tired and sleepy. When asked if he has been diagnosed with bipolar disorder or manic disorder, patient says that he has been diagnosed as manic. Check in with patient Patient disclosed the last thing he remembers is taking his medication for his tooth. He reports he has a cracked wisdom tooth and has not been able to pay to have it pulled but they gave him pain medication that he can take 3 times a day as needed. He continued to disclose that he has had the medication since June, but he had a flair up with pain. He disclosed that he took on the previous evening and one in the morning; "I don't remember much after that." He disclosed that he does drink a lot of green tea and that his girl friend just bought some tea that is supposed to help detox; "they told us that we can drink it as a tea and then take the leaves and let them dry out and we can put it in our food." Patient is no longer presenting confused or in a psychosis. Patient's thought processes are organized and linear, eye contact is well maintained, and conversational speech is within normal rate tone and prosody. no medication recommendations at this time 292.0 (F12.99) substance abuse; marijuana per history Impression\\plan: Patient is cleared from acute psychiatric services. Patient is no longer confused or presenting as if in a psychosis. Patient disclosed using pain medications and then drinking a tea. Clinician discussed with patient the concerns of Kratom teas and that is can cause side effects one of them being psychosis. Patient disclosed that he does not know the name of the tea he drank be report he has no interest in drinking it again. Dr. Gibbons was consulted and the care and management this patient; attending physician is in agreement with her conditions and disposition.
[2018-03-17] MEDS: HALOPERIDOL 5 MG TABLET PO SCH (09:20)
--- NOTE | 2018-03-17 09:47 | ER Document Report ---
Doctor's Note Notes: 03/17/18 09:46 87-year-old male that presented with a little psychosis over the last 24 hours. They believe that the patient has been drinking tea with Kratom. States he had a similar episode previously. Labs as recorded. Potassium has been replaced. Patient denies any headache, nausea, chest pain, abdominal pain, weakness or numbness. Vital signs have improved as recorded. Patient currently denies any suicidal homicidal ideations. Patient is oriented 4 with no auditory visual hallucinations. The psychology team is seen and evaluated the patient would like to discharge the patient home at this time. They do not believe any medications are required. Patient understands the importance of not ingesting the substance once again. The patient's girlfriend is here to fruit picker the patient and is comfortable with the patient going home.
[2018-03-17 10:07] VITALS: BP 127/89
== END 2018-03-17 10:08 | disposition home or self-care (01) ==
LOC: ER 14:58
DX: R45.1 Restlessness and agitation (principal); R00.0 Tachycardia, unspecified; R44.3 Hallucinations, unspecified; F12.99 Cannabis use, unspecified with unspecified cannabis-induced disorder
CPT/HCPCS: 93005; 99285; 96360; 96361; 36415; 82553; 80307; 82550; 85025; 80053; 81001; 84484; 93010; J7030

== ENCOUNTER 2018-03-18 15:34 | Emergency (ER) | payer SELFPAY ==
[2018-03-18 15:40] VITALS: BP 121/88
--- NOTE | 2018-03-18 16:16 | ER Document Report ---
ED Medical Screen (RME) - General Chief Complaint: Jaw Pain Stated Complaint: JAW PAIN Time Seen by Provider: 03/18/18 15:57 Notes: 37-year-old male states that he is having a high time opening his mouth. Thinks his jaws stock. Will not cooperate with exam. Has a history of mental health disorders as well. History of kratom use which cause psychosis. I have greeted and performed a rapid initial assessment of this patient. A comprehensive ED assessment and evaluation of the patient, analysis of test results and completion of the medical decision making process will be conducted by additional ED providers. TRAVEL OUTSIDE OF THE [place] 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
[2018-03-18] MEDS ORDERED: IBUPROFEN 600 MG TABLET PO ONE (16:18)
[2018-03-18] MEDS ORDERED: LORAZEPAM 1 MG TABLET PO ONE (16:19)
--- NOTE | 2018-03-18 16:25 | ER Document Report ---
ED Oral Problem - General Chief Complaint: Jaw Pain Stated Complaint: JAW PAIN Time Seen by Provider: 03/18/18 15:57 Mode of Arrival: Ambulatory Information source: Patient Notes: Patient is a 37-year-old male who was recently discharged here for psychosis with possibly secondary to ingestion. Please see that full history and physical and psychology evaluation for that visit. Patient presents today stating that he only has pain to the right side of his jaw. He states it is worse when he opens his mouth. He states it is intermittently spasming. He denies any facial swelling, lip swelling, tongue swelling, difficulty breathing or swallowing. He denies any pain to his ear. He denies any dental pain or trauma to the face. He denies any neck pain or stiffness. TRAVEL OUTSIDE OF THE [place] IN LAST 30 DAYS: No - HPI Patient complains to provider of: Jaw pain Onset: Other - See above Quality of pain: Achy Severity: Mild Pain Level: 2 Associated symptoms: Other - See above Similar symptoms previously: No Recently seen / treated by doctor/dentist: Yes - Related Data Allergies/Adverse Reactions: cat dander Allergy (Verified 03/18/18 15:35) Past Medical History - General Information source: Patient - Social History Smoking Status: Current Every Day Smoker Cigarette use (# per day): No Chew tobacco use (# tins/day): No Smoking Education Provided: No Frequency of alcohol use: Occasional Drug Abuse: Marijuana Family History: Reviewed & Not Pertinent Patient has suicidal ideation: No Patient has homicidal ideation: No Neurological Medical History: 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 CONSTITUTIONAL: Alert and oriented and responds appropriately to questions. Well -appearing; well-nourished HEAD: Normocephalic; atraumatic EYES: PERRL; full painless extraocular range of motion ENT: Patient has some tenderness to the right side of his face near the temporomandibular joint. There is no palpable click. Full range of motion of the jaw with complete opening and closure. No facial swelling or erythema. No malalignment of the teeth; no missing or loose dentition. No intraoral lesions or posterior pharyngeal erythema; no mastoid tenderness or swelling. M NECK: Supple without meningismus; non-tender; no cervical lymphadenopathy, no masses SKIN: Normal color for age and race; warm; no acute lesions noted NEURO: CN 2-12 intact. Moves all extremities equally; Motor and sensory function intact PSYCH: The patient's mood and manner are appropriate. Grooming and personal hygiene are appropriate. Course - Re-evaluation Re-evalutation: 03/18/18 16:25 Given the above history and physical examination I believe that the patient simply having some jaw muscle spasms. I see no signs of infection or trauma. Patient has full range of motion of the jaw with stable vital signs. No lip or tongue or posterior pharyngeal swelling. No mastoid tenderness or swelling. No malalignment or clicks with full range of motion of the jaw. I will provide a dose of Motrin and Ativan and reassess. Given the patient's recent psychosis, in line with the diagnosis of TMJ, I will withhold Flexeril and start the patient on a course of Motrin. Patient will be discharged home with strict return precautions. 03/18/18 17:04 No change in examination. Patient still looks excellent. Patient will be discharged home with strict return precautions and follow-up as needed with his primary care physician. - Vital Signs Vital signs: Temp Pulse Resp BP Pulse Ox 98.3 F 78 20 121/88 H 97 03/18/18 15:38 03/18/18 15:38 03/18/18 15:38 03/18/18 15:38 03/18/18 15:38 Discharge - Discharge Clinical Impression: Jaw pain Condition: Good Disposition: HOME, SELF-CARE Additional Instructions: Come back immediately for any increased pain, facial swelling, difficulty breathing or swallowing, fever, or any other acute problems. Please make sure that you follow-up with the primary care provider as discussed. Please take Motrin 600 mg every 6 hours for the next 5 days as we have discussed.
== END 2018-03-18 17:15 | disposition home or self-care (01) ==
LOC: ER 15:34
DX: R68.84 Jaw pain (principal); F17.200 Nicotine dependence, unspecified, uncomplicated
CPT/HCPCS: 99283

== ENCOUNTER 2018-05-10 14:38 | Emergency (ER) | payer SELFPAY ==
--- NOTE | 2018-05-10 14:52 | ER Document Report ---
ED General - General Stated Complaint: POSSIBLE SEIZURE Time Seen by Provider: 05/10/18 14:50 Mode of Arrival: Medic Information source: Patient, Relative - girlfriend Notes: [phone](I spoke with Izzy) 37 yo tobacco smoker had presumed seizure in garage. pt was in garage helping her dad put up doors/cabinets, felt hot, that is the last thing he remembers. Izzy's father saw him fall out of the chair possibly hitting head on wagon. When Izzy found him on the floor legs shaking , drooling, sweating, arms shaking, laying on the right side, eyes were open not esponsive, shook for 5 minutes, no incontinence, then her dad called EMT, they had to pick him up and put on gurney-awake when they put him on the gurney. Hurts in back of head. Only ate fruit snacks at 11:00. 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 TRAVEL OUTSIDE OF THE [place] 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 Lives with: Spouse/Significant other Family History: Reviewed & Not Pertinent Neurological Medical History: 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, 3 years, Other - optical neuritis dx [place] Renal/ Medical History: Denies: Hx Peritoneal Dialysis Psychiatric Medical History: Reports: Hx Anxiety Surgical Hx: Negative Review of Systems - Review of Systems Constitutional: See HPI EENT: No symptoms reported Cardiovascular: No symptoms reported Respiratory: No symptoms reported Gastrointestinal: No symptoms reported Genitourinary: No symptoms reported Male Genitourinary: No symptoms reported Musculoskeletal: No symptoms reported Skin: No symptoms reported Hematologic/Lymphatic: No symptoms reported Neurological/Psychological: See HPI Physical Exam - Vital signs Vitals: Temp Resp BP Pulse Ox 98.7 F 20 108/66 98 05/10/18 15:02 05/10/18 15:02 05/10/18 15:02 05/10/18 15:02 Interpretation: Normal - General General appearance: Appears well, Alert - HEENT Head: Normocephalic, Atraumatic Eyes: Normal Conjunctiva: Normal Pupils: PERRL Mucous membranes: Dry Neck: Supple - midline c spine. No: Lymphadenopathy - Respiratory Respiratory status: No respiratory distress Chest status: Other - mild tender irght lower lateral ribs Breath sounds: Normal Chest palpation: Normal - Cardiovascular Rhythm: Regular Heart sounds: Normal auscultation Murmur: No - Abdominal Inspection: Normal Distension: No distension Bowel sounds: Normal Tenderness: Nontender Organomegaly: No organomegaly - Back Back: Normal, Tender - mid t spine. No: CVA tenderness - Extremities General upper extremity: Normal inspection, Nontender, Normal color, Normal ROM , Normal temperature General lower extremity: Normal inspection, Nontender, Normal color, Normal ROM , Normal temperature, Normal weight bearing. No: Lashaun's sign - Neurological Neuro grossly intact: Yes Cognition: Normal Orientation: AAOx4 [place] Coma Scale Eye Opening: Spontaneous [place] Coma Scale Verbal: Oriented [place] Coma Scale Motor: Obeys Commands [place] Coma Scale Total: 15 Speech: Normal Motor strength normal: LUE, RUE, LLE, RLE Sensory: Normal - Psychological Associated symptoms: Flat affect, Psychomotor depression - Skin Skin Temperature: Warm Skin Moisture: Dry Skin Color: Normal Skin irregularity: negative: Rash Course - Re-evaluation Re-evalutation: 05/10/18 17:21 scans are negative. ribs negative. pt sleepy , was given ativan 2mg IV total for possible seizure like activity I witness in CT, eyes roll up, eyelids rapid blinking and shakes- period of apnea once. vitals are stable now. will consult for meds. positive for marijuana. C02 on chemistry 14, anion gap 25. eyes flickering shaking in CT. 05/10/18 18:10 Consult review of labs, etc, the patient can go home we will start him on Keppra 500 mg twice daily since this is safe and refer to neurologist. He has a history of possible seizure on March 17 when psych saw him. He had to take Haldol at the time. Questionable whether this is real seizure because his chart said pseudoseizure and he was diagnosed with heat related seizures i[place]. Patient ambulated safely without assistance in the room and is drinking Pepsi. Feels better like he can go home. 05/10/18 18:11 also, Patient states he did not get any sleep last night because he was crying all night because he was depressed that his brother was on row. The patient states he is depressed but not suicidal. 05/10/18 18:22 05/10/18 18:24 - Vital Signs Vital signs: Temp Pulse Resp BP Pulse Ox 98.7 F 96 20 98/60 L 96 05/10/18 15:02 05/10/18 15:55 05/10/18 17:01 05/10/18 17:00 05/10/18 17:01 - Laboratory Result Diagrams: 05/10/18 15:02 05/10/18 15:02 Laboratory results interpreted by me: 05/10/18 05/10/18 05/10/18 15:02 15:02 16:11 WBC 14.0 H Absolute Neutrophils 9.4 H Carbon Dioxide 14 L Anion Gap 25 H Magnesium 2.6 H Urine Protein 30 H Urine Blood SMALL H Urine Ascorbic Acid 20 H Discharge - Discharge Clinical Impression: Dehydration, hx seizures, Seizure Insomnia Qualifiers: Insomnia type: unspecified Qualified Code(s): G47.00 - Insomnia, unspecified Condition: Good Disposition: HOME, SELF-CARE Instructions: Dehydration ([facility]), Seizure, Known Epileptic ([facility]) Additional Instructions: see neurologist in this area, referral given to you keppra 500mg twice a day to ER if worse 1 liter of water daily so you don't dehydrate Prescriptions: Levetiracetam [Keppra 500 mg Tablet] 500 mg PO Q12 #60 tablet Referrals: TAMIKO MCALLISTER MD [NO LOCAL MD] - Follow up tomorrow
[2018-05-10] MEDS ORDERED: NORMAL SALINE 1000 ML 1,000 ML IV ONE ×3 (15:00→17:23)
[2018-05-10 15:29] LABS: ABSOLUTE BASOPHILS # (AUTO) 0.1 10^3/uL (0.0-0.2); ABSOLUTE EOSINOPHILS # (AUTO) 0.2 10^3/uL (0.0-0.6); ABSOLUTE LYMPHOCYTES (AUTO) 3.5 10^3/uL (0.5-4.7); ABSOLUTE MONOCYTES (AUTO) 0.8 10^3/uL (0.1-1.4); ABSOLUTE NEUT (AUTO) 9.4 10^3/uL (1.7-8.2); BASOPHILS % (AUTO) 0.8 % (0-2); EOSINOPHILS % (AUTO) 1.2 % (0-6); HEMATOCRIT 48.4 % (37.9-51.0); HEMOGLOBIN 15.6 g/dL (13.5-17.0); LYMPHOCYTES % (AUTO) 25.1 % (13-45); MEAN CORPUSCULAR HEMOGLOBIN 28.3 pg (27.0-33.4); MEAN CORPUSCULAR HGB CONC 32.2 g/dL (32.0-36.0); MEAN CORPUSCULAR VOLUME 88 fl (80-97); MONOCYTES % (AUTO) 5.6 % (3-13); PLATELET COUNT 321 10^3/uL (150-450); RED BLOOD COUNT 5.51 10^6/uL (4.35-5.55); RED CELL DISTRIBUTION WIDTH 13.4 % (11.5-14.0); SEGMENTED NEUTROPHILS % (AUTO) 67.3 % (42-78); TOTAL CELLS COUNTED % (AUTO) 100 %
[2018-05-10] MEDS ORDERED: LORAZEPAM INJ 2 MG/1 ML VIAL ONE (15:36)
[2018-05-10 15:44] LABS: ALANINE AMINOTRANSFERASE 24 U/L (21-72); ALBUMIN 4.5 g/dL (3.5-5.0); ALKALINE PHOSPHATASE 38 U/L (38-126); ASPARTATE AMINO TRANSFERASE 28 U/L (17-59); BILIRUBIN,DIRECT 0.2 mg/dL (0.0-0.4); BILIRUBIN,TOTAL 0.7 mg/dL (0.2-1.3); BLOOD UREA NITROGEN 11 mg/dL (7-20); CALCIUM 9.6 mg/dL (8.4-10.2); CREATINE KINASE 95 U/L (55-170); GLUCOSE 91 mg/dL (75-110); POTASSIUM 3.6 mmol/L (3.6-5.0); TOTAL PROTEIN 7.4 g/dL (6.3-8.2)
[2018-05-10 15:45] LABS: ALCOHOL < 10 mg/dL (NONE DETECTED)
[2018-05-10] MEDS ORDERED: LORAZEPAM INJ 2 MG/1 ML VIAL IV ONE (15:47)
--- NOTE | 2018-05-10 15:50 | RADIOLOGY REPORT (SQ) ---
EXAM DESCRIPTION: RIBS RIGHT W/PA CHEST COMPLETED DATE/TIME: 05/10/2018 3:37 pm REASON FOR STUDY: fall, seizure or passed out COMPARISON: None. TECHNIQUE: Frontal view of the chest and additional views of the right ribs acquired. NUMBER OF VIEWS: Three views LIMITATIONS: None. FINDINGS: FRONTAL CXR: No pneumothorax. No pleural effusion. No atelectasis or infiltrates. RIBS: No displaced rib fractures. No lytic or blastic bony lesions. OTHER: No other significant finding. IMPRESSION: NO PNEUMOTHORAX. NO DISPLACED RIB FRACTURES. COMMENT: SITE OF TRAUMA/COMPLAINT MARKED/STAMP COMPLETED: No TECHNICAL DOCUMENTATION: JOB ID: [id number] [employer]- All Rights Reserved Reading location - IP/workstation name: [email or web address]
[2018-05-10 15:55] LABS: ANION GAP 25 (5-19); CARBON DIOXIDE 14 mmol/L (22-30); CHLORIDE 102 mmol/L (98-107); SODIUM 141.3 mmol/L (137-145)
--- NOTE | 2018-05-10 16:10 | RADIOLOGY REPORT (SQ) ---
EXAM DESCRIPTION: CT HEAD WITHOUT COMPLETED DATE/TIME: 05/10/2018 3:52 pm REASON FOR STUDY: fell, headache COMPARISON: September 2017 TECHNIQUE: Axial images acquired through the brain without intravenous contrast. Images reviewed wi th bone, brain and subdural windows. Additional sagittal and coronal reconstructions were generated. Images stored on PACS. All CT scanners at this facility use dose modulation, iterative reconstruction, and/or weight based d osing when appropriate to reduce radiation dose to as low as reasonably achievable (ALARA). [facility]: Dose Right [facility]: CareDose [facility]: Dose Right [facility]: Teradose 4D [facility]: Smart [employer] RADIATION DOSE: CT Rad equipment meets quality standard of care and radiation dose reduction techniq ues were employed. CTDIvol: 55.2 mGy. DLP: 1056 mGy-cm. mGy. LIMITATIONS: None. FINDINGS: VENTRICLES: Normal size and contour. CEREBRUM: No masses. No hemorrhage. No midline shift. No evidence for acute infarction. Normal gra y/white matter differentiation. No areas of low density in the white matter. CEREBELLUM: No masses. No hemorrhage. No alteration of density. No evidence for acute infarction. EXTRAAXIAL SPACES: No fluid collections. No masses. ORBITS AND GLOBE: No intra- or extraconal masses. Normal contour of globe without masses. CALVARIUM: No fracture. PARANASAL SINUSES: Again there is opacification of the left sphenoid sinus. SOFT TISSUES: No mass or hematoma. OTHER: No other significant finding. IMPRESSION: No significant intracranial abnormalities were identified. Sinus disease as noted above . Other findings as noted above EVIDENCE OF ACUTE STROKE: NO. COMMENT: Quality ID # [id number]: Final reports with documentation of one or more dose reduction techniques (e.g., Automated exposure control, adjustment of the mA and/or kV according to patient size, use of iterative reconstruction technique) TECHNICAL DOCUMENTATION: JOB ID: [id number] [employer]- All Rights Reserved Reading location - IP/workstation name: [email or web address]
--- NOTE | 2018-05-10 16:14 | RADIOLOGY REPORT (SQ) ---
EXAM DESCRIPTION: CT CERVICAL SPINE WITHOUT COMPLETED DATE/TIME: 05/10/2018 3:52 pm REASON FOR STUDY: fell, headache COMPARISON: September 2017 TECHNIQUE: Axial images acquired through the cervical spine without intravenous contrast. Images re viewed with lung, soft tissue and bone windows. Reconstructed coronal and sagittal MPR images review ed. Images stored on PACS. All CT scanners at this facility use dose modulation, iterative reconstruction, and/or weight based d osing when appropriate to reduce radiation dose to as low as reasonably achievable (ALARA). [facility]: Dose Right [facility]: CareDose [facility]: Dose Right [facility]: Teradose 4D [facility]: Smart [employer] RADIATION DOSE: CT Rad equipment meets quality standard of care and radiation dose reduction techniq ues were employed. CTDIvol: 15.9 mGy. DLP: 376 mGy-cm. mGy. LIMITATIONS: None. FINDINGS: ALIGNMENT: Anatomic. MINERALIZATION: Normal. VERTEBRAL BODIES: No fractures or dislocation. DISCS: No significant disc disease. FACETS, LATERAL MASSES, POSTERIOR ELEMENTS: No fractures. No dislocation. No acute findings. HARDWARE: None in the spine. VISUALIZED RIBS: No fractures. LUNG APICES AND SOFT TISSUES: No significant or acute findings. OTHER: No other significant finding. IMPRESSION: NO ACUTE OR SIGNIFICANT FINDINGS IN THE CERVICAL SPINE. TECHNICAL DOCUMENTATION: JOB ID: [id number] Quality ID # [id number]: Final reports with documentation of one or more dose reduction techniques (e.g., Au tomated exposure control, adjustment of the mA and/or kV according to patient size, use of iterative reconstruction technique) 2010 [employer]- All Rights Reserved Reading location - IP/workstation name: [email or web address]
--- NOTE | 2018-05-10 16:20 | RADIOLOGY REPORT (SQ) ---
EXAM DESCRIPTION: CT THORACIC SPINE WITHOUT COMPLETED DATE/TIME: 05/10/2018 3:52 pm REASON FOR STUDY: FALL COMPARISON: None. TECHNIQUE: Axial images acquired through the thoracic spine without intravenous contrast. Images re viewed with lung, soft tissue and bone windows. Reconstructed coronal and sagittal MPR images review ed. Images stored on PACS. All CT scanners at this facility use dose modulation, iterative reconstruction, and/or weight based d osing when appropriate to reduce radiation dose to as low as reasonably achievable (ALARA). [facility]: Dose Right [facility]: CareDose [facility]: Dose Right [facility]: Teradose 4D [facility]: Smart [employer] RADIATION DOSE: CT Rad equipment meets quality standard of care and radiation dose reduction techniq ues were employed. CTDIvol: 95.8 mGy. DLP: 3554 mGy-cm. mGy. LIMITATIONS: None. FINDINGS: VISUALIZED LUNGS: No acute opacities. No pneumothorax. SOFT TISSUES: No soft tissue swelling. No masses. VERTEBRAL BODIES: No fractures. No dislocation. No acute findings. DISCS: No significant disc space narrowing. ALIGNMENT: Normal. TRANSVERSE PROCESSES, POSTERIOR ELEMENTS: No fractures. No dislocation. No acute findings. HARDWARE: None in the spine. VISUALIZED RIBS: No fractures. OTHER: No other significant finding. IMPRESSION: No significant findings. TECHNICAL DOCUMENTATION: JOB ID: [id number] Quality ID # [id number]: Final reports with documentation of one or more dose reduction techniques (e.g., Au tomated exposure control, adjustment of the mA and/or kV according to patient size, use of iterative reconstruction technique) 2010 [employer]- All Rights Reserved Reading location - IP/workstation name: [email or web address]
[2018-05-10 16:38] LABS: APPEARANCE,URINE CLEAR; BILIRUBIN,URINE NEGATIVE (NEGATIVE); COLOR,URINE YELLOW; GLUCOSE, URINE NEGATIVE (NEGATIVE); KETONES,URINE NEGATIVE (NEGATIVE); LEUKOCYTE ESTERASE,URINE NEGATIVE (NEGATIVE); NITRITE,URINE NEGATIVE (NEGATIVE); PROTEIN,URINE 30 mg/dL (NEGATIVE); URINE SPECIFIC GRAVITY 1.015; UROBILINOGEN,URINE NEGATIVE mg/dL (<2.0)
[2018-05-10 16:44] LABS: URINE AMPHETAMINES SCREEN NEGATIVE; URINE BARBITURATES SCREEN NEGATIVE; URINE BENZODIAZEPINES SCREEN NEGATIVE; URINE COCAINE SCREEN NEGATIVE; URINE MARIJUANA (THC) SCREEN UNCONFIRMED POSITIVE; URINE METHADONE SCREEN NEGATIVE; URINE PHENCYCLIDINE SCREEN NEGATIVE
[2018-05-10] MEDS ORDERED: LEVETIRACETAM 500 MG TABLET PO ONE (18:06)
[2018-05-10] MEDS ORDERED: ACETAMINOPHEN 325 MG TABLET PO ONE (18:09)
[2018-05-10 18:47] VITALS: BP 111/79
--- NOTE | 2018-05-10 22:09 | EKG REPORT ---
SEVERITY:- ABNORMAL ECG - SINUS TACHYCARDIA PROBABLE LEFT ATRIAL ABNORMALITY BORDERLINE T ABNORMALITIES, ANT-LAT LEADS ST ELEVATION SUGGESTS PERICARDITIS VS EARLY REPOLARIZATION CHANGES : Confirmed by: Charleen Burns 10-May-2018 22:09:07
== END 2018-05-10 18:57 | disposition home or self-care (01) ==
LOC: ER 14:38
DX: E86.0 Dehydration (principal); G40.909 Epilepsy, unspecified, not intractable, without status epilepticus; G47.00 Insomnia, unspecified
CPT/HCPCS: 93005; 99285; 96361; 96374; 36415; 87086; 80307 ×2; 82550; 83735; 85025; 80053; 81001; 71101; 70450; 72125; 72128; 93010; J2060; J7030

== ENCOUNTER 2018-09-12 17:44 | Emergency (ER) | payer SELFPAY ==
[2018-09-12] MEDS ORDERED: LIDOCAINE 1% INJ-PF (10 MG/ML) 30 ML SDV INJ ONE (19:31)
--- NOTE | 2018-09-12 19:35 | ER Document Report ---
ED Wound - General Chief Complaint: Laceration Stated Complaint: LEFT HAND INJURY Time Seen by Provider: 09/12/18 19:28 Notes: Patient is a 38-year-old male that comes to the emergency department for chief complaint of laceration to the left hand. He states that he was digging wax out of a broken container with his knife when his knife slipped and he accidentally stabbed himself in the hand. He denies any other injuries. His tetanus is up-to-date within 5 years reportedly. Past medical history of seizures, denies diabetes, denies any other medical history. TRAVEL OUTSIDE OF THE [place] 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, 3 years Renal/ Medical History: Denies: Hx Peritoneal Dialysis Psychiatric Medical History: Reports: Hx Anxiety Surgical Hx: Negative - Immunizations Immunizations up to date: Yes Hx Diphtheria, Pertussis, Tetanus Vaccination: Yes Review of Systems - Review of Systems Constitutional: No symptoms reported EENT: No symptoms reported Cardiovascular: No symptoms reported Respiratory: No symptoms reported Gastrointestinal: No symptoms reported Genitourinary: No symptoms reported Male Genitourinary: No symptoms reported Musculoskeletal: See HPI Skin: See HPI Hematologic/Lymphatic: No symptoms reported Neurological/Psychological: No symptoms reported Physical Exam - Vital signs Vitals: Temp Pulse Resp BP Pulse Ox 98.7 F 71 12 120/82 95 09/12/18 17:52 09/12/18 17:52 09/12/18 17:52 09/12/18 17:52 09/12/18 17:52 - Notes Notes: GENERAL: Alert, interacts well. No acute distress. HEAD: Normocephalic, atraumatic. EYES: Pupils equal, round, and reactive to light. Extraocular movements intact. ENT: Oral mucosa moist, tongue midline. Oropharynx unremarkable. Airway patent. Nares patent, no nasal septal hematoma, TM's intact. NECK: Full range of motion. Supple. Trachea midline. LUNGS: Clear to auscultation bilaterally, no wheezes, rales, or rhonchi. No respiratory distress. HEART: Regular rate and rhythm. No murmur ABDOMEN: Soft, non-tender. Non-distended. Bowel sounds present in all 4 quadrants. GENITOURINARY: Deferred EXTREMITIES: Partial-thickness laceration over the palm of the left hand at the mid MCP area of the fourth and fifth digits, full range of motion of all digits , station, capillary refill intact, normal hand examination otherwise, normal upper extremity exam otherwise. BACK: no cervical, thoracic, lumbar midline tenderness. No saddle anesthesia, normal distal neurovascular exam. NEUROLOGICAL: Alert and oriented x3. Normal speech. [cranial nerves II through XII grossly intact]. PSYCH: Normal affect, normal mood. SKIN: Warm, dry, normal turgor. No rashes or lesions noted. Course - Re-evaluation Re-evalutation: Superficial wound was repaired after thorough irrigation. Discussed with patient, decision was made because of unclear material to place patient on prophylaxis because of the hand wound. Discussed wound care, follow-up, return precautions. Patient states understanding and agreement. - Vital Signs Vital signs: Temp Pulse Resp BP Pulse Ox 98.7 F 63 16 128/94 H 97 09/12/18 17:52 09/12/18 20:45 09/12/18 20:45 09/12/18 20:45 09/12/18 20:45 Procedures - Laceration/Wound Repair Left palm Wound length (cm): 1.5 Wound's Depth, Shape: Linear Laceration pre-procedure: Sterile PPE donned, Sterile drapes applied, Shur- Clens applied Anesthetic type: 1% Lidocaine Wound explored: Clean Irrigated w/ Saline (mLs): 50 Wound Repaired With: Sutures Suture Size/Type: 5:0 Layer Closure?: No Post-procedure wound care: Sterile dressing applied Post-procedure NV exam normal: Yes Complications: No Discharge - Discharge Clinical Impression: Laceration of left hand Qualifiers: Encounter type: initial encounter Foreign body presence: without foreign body Qualified Code(s): S61.412A - Laceration without foreign body of left hand, initial encounter Condition: Stable Disposition: HOME, SELF-CARE Additional Instructions: Sutures need to come out in 7 days. Keep clean, clean with soap and water, dab dry, avoid soaking. Take preventative antibiotic as prescribed. Follow-up with primary care. Return for any concerning symptoms including developing or spreading redness, swelling, pain, discolored discharge, or any other concerning or worsening symptoms. Prescriptions: Cephalexin Monohydrate [Keflex 500 mg Capsule] 500 mg PO TID #15 capsule
[2018-09-12 21:59] VITALS: BP 128/94
== END 2018-09-12 21:00 | disposition home or self-care (01) ==
LOC: ER 17:44
PROC: 0HQGXZZ Repair Left Hand Skin, External Approach (ICD-10-PCS; principal; 2018-09-12)
DX: S61.412A Laceration without foreign body of left hand, initial encounter (principal); F41.9 Anxiety disorder, unspecified; R56.9 Unspecified convulsions; W26.0XXA Contact with knife, initial encounter; Y92.89 Other specified places as the place of occurrence of the external cause
CPT/HCPCS: 99282

== ENCOUNTER 2018-09-23 11:59 | Emergency (ER) | payer SELFPAY ==
[2018-09-23 12:05] VITALS: BP 130/81
[2018-09-23] MEDS ORDERED: DIPH/PERTUSS(ACELL)/TETANUS VAC/PF 0.5 ML SYR (>=10YO) IM ONE (12:23)
--- NOTE | 2018-09-23 12:26 | ER Document Report ---
HPI - HPI Patient complains to provider of: Suture removal Time Seen by Provider: 09/23/18 12:17 Onset: Other - 11 days Onset/Duration: Better Pain Level: 0 Context: Patient presents for suture removal to left hand. Patient had stitches placed 11 days ago. Patient denies any problems. Patient states that he does not know when his last tetanus immunization was. Associated Symptoms: Other - Sutures to the left hand Exacerbated by: Denies Relieved by: Denies Similar symptoms previously: No Recently seen / treated by doctor: Yes - ROS ROS below otherwise negative: Yes Systems Reviewed and Negative: Yes All other systems reviewed and negative - REPRODUCTIVE Reproductive: DENIES: : - DERM Skin Color: Normal Skin Problems: Laceration - Suture laceration to left hand Past Medical History - General Information source: Patient - Social History Smoking Status: Never Smoker Frequency of alcohol use: None Drug Abuse: None Occupation: None Family History: Reviewed & Not Pertinent Neurological Medical History: 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 IN LAST 30 DAYS: No - HEENT HEENT: Atraumatic, Normocephalic - NECK Neck: Normal Inspection - RESPIRATORY Respiratory: No Respiratory Distress - CARDIOVASCULAR Pulses: Normal: Radial - MUSCULOSKELETAL/EXTREMETIES Musculoskeletal/Extremeties: MAEW, FROM - NEURO Level of Consciousness: Awake, Alert, Appropriate Motor/Sensory: No Motor Deficit - DERM Integumentary: Warm, Dry, Laceration - Sutured 1.5 cm laceration to ulnar aspect of left hand, wound edges approximated with 3 intact sutures Course - Vital Signs Vital signs: Temp Pulse Resp BP Pulse Ox 98.7 F 75 14 130/81 H 98 09/23/18 12:02 09/23/18 12:02 09/23/18 12:02 09/23/18 12:02 09/23/18 12:02 Discharge - Discharge Clinical Impression: Visit for suture removal Condition: Stable Disposition: HOME, SELF-CARE Instructions: Suture Removal, Tetanus Immunization Given ([facility]) Additional Instructions: Return immediately for any new or worsening symptoms Followup with your primary care provider as needed for recheck Referrals: [facility] [Provider Group] - Follow up as needed [facility] [Provider Group] - Follow up as needed
== END 2018-09-23 12:50 | disposition home or self-care (01) ==
LOC: ER 11:59
DX: S61.412D Laceration without foreign body of left hand, subsequent encounter (principal); X58.XXXD Exposure to other specified factors, subsequent encounter
CPT/HCPCS: 90715

== ENCOUNTER 2018-10-08 20:28 | Emergency (ER) | payer SELFPAY ==
[2018-10-08] MEDS ORDERED: DIAZEPAM INJ 10 MG/2 ML DISP.SYRIN IV ONE (22:00)
[2018-10-08] MEDS ORDERED: LIDOCAINE 5% (700 MG) TRANSDERMAL ADH..PATCH TP ONE (22:00)
[2018-10-08] MEDS ORDERED: KETOROLAC TROMETHAMINE INJ/PF 30 MG/1 ML SDV IV ONE (22:00)
[2018-10-08] MEDS ORDERED: NORMAL SALINE 1000 ML 1,000 ML IV ONE (22:01)
--- NOTE | 2018-10-08 22:02 | ER Document Report ---
ED General - General Chief Complaint: Seizure Stated Complaint: POSSIBLE SEIZURE Time Seen by Provider: 10/08/18 20:40 Notes: Patient is a 38-year-old male with a past medical history of PNES, anxiety and depression who presents after having 1 of his typical pseudoseizures earlier today. His girlfriend at the bedside reports that while in the car the patient began having total body thrusting and shaking. This lasted approximately 30 seconds to 1 minute and then spontaneously terminated. No postictal phase. This is very similar to when patient has had pseudoseizures in the past. He does not currently take any medications. Nothing is new or different about his event today that prompted a visit to the emergency department. The patient also states that he has felt hot and cold today and generally unwell. He denies any cough, shortness of breath, headache, neck pain, weakness, numbness, abdominal pain, vomiting or diarrhea. Nothing improves or worsens the symptoms. He has not seen his general physician regarding today's concerns. No known sick contacts. TRAVEL OUTSIDE OF THE [place] 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 Eyes: Negative for visual changes. Cardiovascular: Negative for chest pain. Respiratory: Negative for shortness of breath. Gastrointestinal: Negative for abdominal pain, vomiting or diarrhea. Genitourinary: Negative for dysuria. Musculoskeletal: Negative for back pain. Skin: Negative for rash. Neurological: Negative for headaches, weakness or numbness. 10 point ROS negative except as marked above and in HPI. Physical Exam - Vital signs Vitals: Temp Resp 98.0 F 28 H 10/08/18 20:36 10/08/18 20:36 Interpretation: Normal Notes: PHYSICAL EXAMINATION: GENERAL: Well-appearing, well-nourished and in no acute distress. HEAD: Atraumatic, normocephalic. EYES: Pupils equal round and reactive to light, extraocular movements intact, sclera anicteric, conjunctiva are normal. ENT: nares patent, oropharynx clear without exudates. Moist mucous membranes. NECK: Normal range of motion, supple without lymphadenopathy LUNGS: Breath sounds clear to auscultation bilaterally and equal. No wheezes rales or rhonchi. HEART: Regular rate and rhythm without murmurs ABDOMEN: Soft, nontender, normoactive bowel sounds. No guarding, no rebound. No masses appreciated. EXTREMITIES: Normal range of motion, no pitting or edema. No cyanosis. NEUROLOGICAL: Face symmetric. Tongue protrudes midline. Extraocular motions intact. Pupils are 2 mm and equally reactive. Normal speech, normal gait. 5 out of 5 strength in both the distal and proximal upper and lower extremities bilaterally. Sensation is grossly intact throughout. Finger to nose testing normal. Pronator drift normal. PSYCH: Anxious, intermittently rolls his eyes in the back of his head and begins shaking his legs which terminate when I asked him to stop. SKIN: Warm, Dry, normal turgor, no rashes or lesions noted. Course - Re-evaluation Re-evalutation: 10/08/18 22:01 Patient has a known history of pseudoseizures, presents today after having 1 of his typical pseudoseizures without any postictal phase. Neurologic exam is completely unremarkable the time of my assessment. Has a known history of the same. The patient however is also complaining of feeling hot and cold today and is noted to be moderately hypoxic on room air down to 89% at the time of my bedside assessment. Given this mild hypoxemia in conjunction with the patient complaining of constitutional symptoms of body aches as well as feeling hot and cold the patient will undergo assessment for possible associated infection. Chest x-ray, influenza testing, basic laboratories will be obtained. Will also provide a low-dose of diazepam as the patient reports that he continues to be extremely anxious. He is afebrile. 10/08/18 23:59 I do believe the patient may have been performing breath-holding earlier as the patient has been weaned off his oxygen, has been sleeping soundly and has been resting at 98% on room air. Chest x-ray is clear, influenza test negative. Labs show a nonspecific leukocytosis of the review of previous laboratories reveals that the patient consistently has a leukocytosis. He does feel much better after receiving diazepam and a low-dose of haloperidol. I have advised that he needs to follow-up as an outpatient regarding his PNES. At this time will discharge with return precautions and follow-up recommendations. Verbal discharge instructions given a the bedside and opportunity for questions given. Medication warnings reviewed. Patient is in agreement with this plan and has verbalized understanding of return precautions and the need for primary care follow-up in the next 24-72 hours. - Vital Signs Vital signs: Temp Pulse Resp BP Pulse Ox 98.0 F 12 130/86 H 97 10/08/18 21:34 10/09/18 01:01 10/09/18 01:01 10/09/18 01:01 - Laboratory Result Diagrams: 10/08/18 20:56 10/08/18 22:49 Laboratory results interpreted by me: 10/08/18 10/08/18 10/08/18 20:56 22:32 22:49 WBC 17.9 H RBC 6.07 H Hgb 17.6 H Hct 53.4 H Abs Neuts (Manual) 10.6 H Abs Lymphs (Manual) 5.4 H Abs Monocytes (Manual) 1.6 H Sodium 136.2 L Potassium 3.5 L Urine Protein 100 H Urine Blood SMALL H Urine Ascorbic Acid 20 H - Diagnostic Test Radiology reviewed: Image reviewed, Reports reviewed Radiology results interpreted by me: 10/09/18 00:00 Chest x-ray: No acute infiltrate pneumothorax Discharge - Discharge Clinical Impression: Pseudoseizures, Agitation Condition: Good Disposition: HOME, SELF-CARE Additional Instructions: Your episode of shaking today was likely due to something called PNES, also known as pseudogenic non-epileptiform seizures. These are often also often referred to as pseudoseizures. These are not voluntary. However, they are not coming from an abnormal focus in your brain like somebody who has true epilepsy. These episodes can often be triggered by stress, anxiety, or not taking your normal medications. Please follow-up with your primary care doctor at your earliest ability. Return for any additional concerns you may have including if you develop a fever, nausea, vomiting, pass out, have focal weakness or numbness, or any other symptoms that are concerning to you. Your labs do show a mild increase in your white blood cell count was noted today although you have had this repeatedly in the past. Your other laboratory's and her chest x-ray are otherwise normal.
[2018-10-08 22:15] LABS: HEMATOCRIT 53.4 % (37.9-51.0); HEMOGLOBIN 17.6 g/dL (13.5-17.0); MEAN CORPUSCULAR HEMOGLOBIN 28.9 pg (27.0-33.4); MEAN CORPUSCULAR HGB CONC 32.9 g/dL (32.0-36.0); MEAN CORPUSCULAR VOLUME 88 fl (80-97); PLATELET COUNT 356 10^3/uL (150-450); RED BLOOD COUNT 6.07 10^6/uL (4.35-5.55); RED CELL DISTRIBUTION WIDTH 13.1 % (11.5-14.0); WHITE BLOOD COUNT 17.9 10^3/uL (4.0-10.5)
--- NOTE | 2018-10-08 22:34 | RADIOLOGY REPORT (SQ) ---
CLINICAL HISTORY: sob, cough COMPARISON: August 20, 2017. TECHNIQUE: XR CHEST 1 VIEW 10/08/2018 10:00 PM CIGARETTE TIPPER FINDINGS: Cardiac silhouette is normal in size. Lungs are clear without consolidation, atelectasis, mass or edema. There is no pleural effusion. There is no pneumothorax. There are no acute osseous findings. IMPRESSION: Clear lungs.
[2018-10-08 22:35] LABS: ABSOLUTE LYMPHOCYTES# (MANUAL) 5.4 10^3/uL (0.5-4.7); ABSOLUTE MONOCYTES # (MANUAL) 1.6 10^3/uL (0.1-1.4); ABSOLUTE NEUTROPHILS# (MANUAL) 10.6 10^3/uL (1.7-8.2); BASOPHILS % (MANUAL) 0 % (0-2); EOSINOPHILS % (MANUAL) 2 % (0-6); LYMPHOCYTES % (MANUAL) 30 % (13-45); MONOCYTES % (MANUAL) 9 % (3-13); SEGMENTED NEUTROPHILS % (MAN) 59 % (42-78); TOTAL CELLS COUNTED 100
[2018-10-08 22:36] LABS: PLATELET COMMENT ADEQUATE; RBC MORPHOLOGY COMMENT NORMO-CYTIC/CHROMIC
[2018-10-08] MEDS ORDERED: HALOPERIDOL LACTATE INJ 5 MG/1 ML VIAL IV ONE (22:54)
[2018-10-08 23:12] LABS: ANION GAP 10 (5-19); BLOOD UREA NITROGEN 12 mg/dL (7-20); CALCIUM 9.2 mg/dL (8.4-10.2); CARBON DIOXIDE 24 mmol/L (22-30); CHLORIDE 102 mmol/L (98-107); GLUCOSE 79 mg/dL (75-110); POTASSIUM 3.5 mmol/L (3.6-5.0); SODIUM 136.2 mmol/L (137-145)
[2018-10-08 23:13] LABS: APPEARANCE,URINE SLIGHTLY-CLOUDY; BILIRUBIN,URINE NEGATIVE (NEGATIVE); COLOR,URINE YELLOW; GLUCOSE, URINE NEGATIVE (NEGATIVE); KETONES,URINE NEGATIVE (NEGATIVE); LEUKOCYTE ESTERASE,URINE NEGATIVE (NEGATIVE); NITRITE,URINE NEGATIVE (NEGATIVE); PROTEIN,URINE 100 mg/dL (NEGATIVE); URINE SPECIFIC GRAVITY 1.015; UROBILINOGEN,URINE NEGATIVE mg/dL (<2.0)
[2018-10-08 23:26] LABS: A TYPE INFLUENZA AG NEGATIVE (NEGATIVE); B INFLUENZA AG NEGATIVE (NEGATIVE)
[2018-10-09 01:33] VITALS: BP 130/86
== END 2018-10-09 01:25 | disposition home or self-care (01) ==
LOC: ER 20:28
DX: R56.9 Unspecified convulsions (principal); R45.1 Restlessness and agitation; F17.200 Nicotine dependence, unspecified, uncomplicated
CPT/HCPCS: 99284; 96361; 96374; 96375; 36415; 85025; 80048; 81001; 87804; 71045; J3360; J1630; J1885; J7030

== ENCOUNTER → 2019-01-18 | Outpatient (CLI) | payer OTHER ==
--- NOTE | 2019-01-18 14:20 | RADIOLOGY REPORT (SQ) ---
EXAM DESCRIPTION: CT HEAD WITHOUT COMPLETED DATE/TIME: 01/18/2019 1:47 pm REASON FOR STUDY: G40.89 OTHER SEIZURES H54.50 LOW VISION, ONE EYE, UNSPECIFIED EYE G40.89 OTHER S EIZURES COMPARISON: None. TECHNIQUE: Axial images acquired through the brain without intravenous contrast. Images reviewed wi th bone, brain and subdural windows. Additional sagittal and coronal reconstructions were generated. Images stored on PACS. All CT scanners at this facility use dose modulation, iterative reconstruction, and/or weight based d osing when appropriate to reduce radiation dose to as low as reasonably achievable (ALARA). [facility]: Dose Right [facility]: CareDose [facility]: Dose Right [facility]: Teradose 4D [facility]: Smart clinovo RADIATION DOSE: CT Rad equipment meets quality standard of care and radiation dose reduction techniq ues were employed. CTDIvol: 48.7 mGy. DLP: 1029 mGy-cm. LIMITATIONS: None. FINDINGS: VENTRICLES: Normal size and contour. The cisterns are patent. CEREBRUM: No masses. No hemorrhage. No midline shift. No evidence for acute infarction. Normal gra y/white matter differentiation. No areas of low density in the white matter. CEREBELLUM: No masses. No hemorrhage. No alteration of density. No evidence for acute infarction. EXTRAAXIAL SPACES: No fluid collections. No masses. ORBITS AND GLOBE: No intra- or extraconal masses. Normal contour of globe without masses. CALVARIUM: No fracture. PARANASAL SINUSES: Homogeneous opacification of the midline to the left sphenoid sinus. No air-flui d levels. Slight deviation of the nasal septum to the left of the midline. SOFT TISSUES: No mass or hematoma. OTHER: No other significant finding. IMPRESSION: 1. No acute intracranial abnormality. 2. Sphenoid sinus disease. No air-fluid levels. EVIDENCE OF ACUTE STROKE: NO COMMENT: Quality ID # [id number]: Final reports with documentation of one or more dose reduction techniques (e.g., Automated exposure control, adjustment of the mA and/or kV according to patient size, use of iterative reconstruction technique) TECHNICAL DOCUMENTATION: JOB ID: [id number] [employer]- All Rights Reserved Reading location - IP/workstation name: [email or web address]
== END ==
LOC: RAD 13:54
DX: G40.89 Other seizures (principal)
CPT/HCPCS: 70450

== ENCOUNTER → 2019-01-18 | Outpatient (CLI) | payer OTHER ==
[2019-01-18 09:42] LABS: ABSOLUTE BASOPHILS # (AUTO) 0.1 10^3/uL (0.0-0.2); ABSOLUTE EOSINOPHILS # (AUTO) 0.2 10^3/uL (0.0-0.6); ABSOLUTE LYMPHOCYTES (AUTO) 2.6 10^3/uL (0.5-4.7); ABSOLUTE MONOCYTES (AUTO) 0.6 10^3/uL (0.1-1.4); ABSOLUTE NEUT (AUTO) 5.3 10^3/uL (1.7-8.2); BASOPHILS % (AUTO) 0.6 % (0-2); HEMATOCRIT 49.4 % (37.9-51.0); HEMOGLOBIN 16.8 g/dL (13.5-17.0); LYMPHOCYTES % (AUTO) 29.8 % (13-45); MEAN CORPUSCULAR HEMOGLOBIN 29.4 pg (27.0-33.4); MEAN CORPUSCULAR VOLUME 86 fl (80-97); MONOCYTES % (AUTO) 7.1 % (3-13); PLATELET COUNT 293 10^3/uL (150-450); RED BLOOD COUNT 5.72 10^6/uL (4.35-5.55); SEGMENTED NEUTROPHILS % (AUTO) 60.5 % (42-78); TOTAL CELLS COUNTED % (AUTO) 100 %; WHITE BLOOD COUNT 8.8 10^3/uL (4.0-10.5)
== END ==
LOC: CCC 09:00
PROVIDERS: ATTEND Internal Medicine
DX: D72.829 Elevated white blood cell count, unspecified (principal)
CPT/HCPCS: 36415; 85025

== ENCOUNTER 2019-05-05 09:22 | Emergency (ER) | payer OTHER ==
--- NOTE | 2019-05-05 10:09 | EKG REPORT ---
SEVERITY:- NORMAL ECG - SINUS RHYTHM : Confirmed by: Charleen Burns 05-May-2019 10:08:19
[2019-05-05 10:18] LABS: ABSOLUTE BASOPHILS # (AUTO) 0.1 10^3/uL (0.0-0.2); ABSOLUTE EOSINOPHILS # (AUTO) 0.1 10^3/uL (0.0-0.6); ABSOLUTE LYMPHOCYTES (AUTO) 2.5 10^3/uL (0.5-4.7); ABSOLUTE MONOCYTES (AUTO) 0.6 10^3/uL (0.1-1.4); ABSOLUTE NEUT (AUTO) 6.2 10^3/uL (1.7-8.2); BASOPHILS % (AUTO) 0.9 % (0-2); EOSINOPHILS % (AUTO) 0.9 % (0-6); HEMATOCRIT 49.5 % (37.9-51.0); HEMOGLOBIN 16.4 g/dL (13.5-17.0); LYMPHOCYTES % (AUTO) 26.6 % (13-45); MEAN CORPUSCULAR HEMOGLOBIN 29.1 pg (27.0-33.4); MEAN CORPUSCULAR HGB CONC 33.2 g/dL (32.0-36.0); MEAN CORPUSCULAR VOLUME 88 fl (80-97); MONOCYTES % (AUTO) 6.3 % (3-13); PLATELET COUNT 289 10^3/uL (150-450); RED BLOOD COUNT 5.64 10^6/uL (4.35-5.55); RED CELL DISTRIBUTION WIDTH 13.3 % (11.5-14.0); SEGMENTED NEUTROPHILS % (AUTO) 65.3 % (42-78); TOTAL CELLS COUNTED % (AUTO) 100 %; WHITE BLOOD COUNT 9.5 10^3/uL (4.0-10.5)
[2019-05-05 10:27] LABS: APPEARANCE,URINE CLEAR; BILIRUBIN,URINE NEGATIVE (NEGATIVE); COLOR,URINE YELLOW; GLUCOSE, URINE NEGATIVE (NEGATIVE); KETONES,URINE NEGATIVE (NEGATIVE); LEUKOCYTE ESTERASE,URINE NEGATIVE (NEGATIVE); NITRITE,URINE NEGATIVE (NEGATIVE); PROTEIN,URINE NEGATIVE (NEGATIVE); URINE SPECIFIC GRAVITY 1.017; UROBILINOGEN,URINE NEGATIVE mg/dL (<2.0)
[2019-05-05] MEDS ORDERED: MORPHINE SULFATE 10 MG/ML INJ IV ONE (10:29)
[2019-05-05] MEDS ORDERED: METOCLOPRAMIDE HCL INJ/PF 10 MG/2 ML SDV IV ONE (10:29)
[2019-05-05 10:36] LABS: ALANINE AMINOTRANSFERASE 61 U/L (21-72); ALBUMIN 4.6 g/dL (3.5-5.0); ALKALINE PHOSPHATASE 45 U/L (38-126); ANION GAP 7 (5-19); ASPARTATE AMINO TRANSFERASE 48 U/L (17-59); BILIRUBIN,DIRECT 0.3 mg/dL (0.0-0.4); BILIRUBIN,TOTAL 0.6 mg/dL (0.2-1.3); BLOOD UREA NITROGEN 9 mg/dL (7-20); CALCIUM 9.8 mg/dL (8.4-10.2); CARBON DIOXIDE 29 mmol/L (22-30); CHLORIDE 102 mmol/L (98-107); GLUCOSE 81 mg/dL (75-110); POTASSIUM 4.6 mmol/L (3.6-5.0); TOTAL PROTEIN 7.5 g/dL (6.3-8.2)
--- NOTE | 2019-05-05 10:36 | ER Document Report ---
ED General - General Chief Complaint: Abdominal Pain Stated Complaint: ABDOMINAL PAIN Time Seen by Provider: 05/05/19 10:19 Primary Care Provider: [facility] [Primary Care Provider] - Follow up as needed TRAVEL OUTSIDE OF THE [place] IN LAST 30 DAYS: No - HPI Notes: Patient is a 38-year-old male with a history of PNES, anxiety and depression who presents complaining of generalized severe abdominal pain is been developing over the past couple weeks. Patient states that he has not had a bowel movement in 14 days. Patient states that he has been having nausea and vomiting and decreased p.o. intake. He is still urinating normally. Patient states that when he touched really hard yesterday he did have one episode of seeing streaky blood, but has not had any other episodes of hematemesis since. No surgical history to his abdomen. Denies any headache, fever, neck pain, URI, sore throat, chest pain, palpitations, syncope, cough, shortness of breath, wheeze, dyspnea, diarrhea, urinary retention, dysuria, hematuria, back pain, or rash. 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 HEAD: Atraumatic, normocephalic. EYES: Pupils equal round and reactive to light, extraocular movements intact, sclera anicteric, conjunctiva are normal. ENT: Nares patent and without discharge. oropharynx clear without exudates. No tonsilar hypertrophy or erythema. Moist mucous membranes. NECK: Normal range of motion, supple without lymphadenopathy LUNGS: Breath sounds clear to auscultation bilaterally and equal. No wheezes rales or rhonchi. HEART: Regular rate and rhythm without murmurs, rubs, gallops. ABDOMEN: Rigid/tender with guarding and rebound to the generalized abdomen. hypoactive BS. No CVA tenderness bilaterally. Musculoskeletal: FROM to passive/active. Strength 5+/5. Extremities: No cyanosis, clubbing, or edema b/l. Peripheral pulses 2+. Capillary refill less than 3 seconds. NEUROLOGICAL: Normal speech, normal gait. PSYCH: Normal mood, normal affect. SKIN: Warm, Dry, normal turgor, no rashes or lesions noted. Course - Re-evaluation Re-evalutation: 05/05/19 10:35 Upon immediate examination of the patient I did call our general surgeon, Dr. Davis, who recommends performing basic work-up with CT imaging and he will come evaluate the patient as well. Soon as I left the room, patient began vomiting exhibit pain from evaluation. 05/05/19 13:18 Labs and imaging unremarkable aside from large stool burden. We will perform enema in the ED. 05/05/19 16:10 Patient is an afebrile, well-hydrated, 38-year-old male presents with abdominal pain suspect secondary to significant constipation. Vitals are acceptable considering tachycardia, tachypnea, and hypoxia. PE is otherwise unremarkable. Patient is nontoxic-appearing and is now able to tolerate p.o. without difficulty. Labs and imaging unremarkable otherwise. Patient was given an enema and had abundant results. Patient states that his abdominal pain has since resolved and he is feeling much better. No further work-up warranted at this time. Low suspicion/risk for acute appendicitis, bowel obstruction, acute cholecystitis, perforated diverticulitis, incarcerated hernia, pancreatitis, perforated ulcer, peritonitis, sepsis, testicular torsion, or other systemic emergent condition at this time. Patient is aware that his condition can change from initial presentation and he needs to monitor symptoms closely and seek medi [facility] attention if any acute changes. Conservative measures otherwise for symptoms. Recheck with PCM in 3-5 days. Consider consult with a rn night. Return to the ED with any worsening/concerning symptoms otherwise as reviewed in discharge. Patient is in agreement. - Vital Signs Vital signs: Temp Pulse Resp BP Pulse Ox 97.6 F 72 16 121/72 96 05/05/19 09:33 05/05/19 09:33 05/05/19 09:33 05/05/19 09:33 05/05/19 09:33 - Laboratory Result Diagrams: 05/05/19 10:00 05/05/19 10:00 Laboratory results interpreted by me: 05/05/19 05/05/19 10:00 10:00 RBC 5.64 H Lipase 578.5 H Discharge - Discharge Clinical Impression: Abdominal pain, generalized Constipation Qualifiers: Constipation type: unspecified constipation type Qualified Code(s): K59.00 - Constipation, unspecified Condition: Stable Disposition: HOME, SELF-CARE Instructions: Abdominal Pain ([facility]), Antinausea Medication ([facility]), Constipation ([facility]) Additional Instructions: Maintain adequate fluid and food intake High fiber/water intake Zofran as needed tylenol if needed Monitor for any worsening symptoms Make sure you are staying hydrated enough to urinate and have normal BM's Stool softener daily Recheck with your PCM in 3-5 days Consider consult with Gastroenterology for ongoing/worsening symptoms Return to the ED with any worsening symptoms and/or development of fever, headache, chest pain, palpitations, syncope, shortness of breath, trouble breathing, abdominal pain, n/v/d, blood in stool/urine, weakness, or other worsening symptoms that are concerning to you. Prescriptions: Ondansetron [Zofran Odt 4 mg Tablet] 1 - 2 tab PO Q4H PRN #15 tab.rapdis PRN Reason: For Nausea/Vomiting Referrals: [facility] [Primary Care Provider] - Follow up as needed JOSE PRICE MD [ACTIVE STAFF] - Follow up as needed
[2019-05-05] MEDS: NORMAL SALINE 1000 ML 1,000 ML IV PRN ×2 (10:43→11:58)
--- NOTE | 2019-05-05 13:13 | RADIOLOGY REPORT (SQ) ---
EXAM DESCRIPTION: CT ABD/PELVIS WITH IV ORAL COMPLETED DATE/TIME: 05/05/2019 1:03 pm REASON FOR STUDY: abd pain COMPARISON: None. TECHNIQUE: CT scan of the abdomen and pelvis performed using helical scanning technique with dynamic intravenous contrast injection. No oral contrast. Images reviewed with lung, soft tissue, and bone windows. Reconstructed coronal and sagittal MPR images reviewed. Delayed images for evaluation of the urinary system also acquired. All images stored on PACS. All CT scanners at this facility use dose modulation, iterative reconstruction, and/or weight based d osing when appropriate to reduce radiation dose to as low as reasonably achievable (ALARA). [facility]: Dose Right [facility]: CareDose [facility]: Dose Right [facility]: Teradose 4D [facility]: Purple CONTRAST TYPE AND DOSE: contrast/concentration: Isovue 350.00 mg/ml; Total Contrast Delivered: 85.0 ml; Total Saline Delivered: 69.0 ml RENAL FUNCTION: BUN 9, creatinine 0.76 RADIATION DOSE: CT Rad equipment meets quality standard of care and radiation dose reduction techniq ues were employed. CTDIvol: NaN - NaN mGy. DLP: 0 mGy-cm.. LIMITATIONS: None. FINDINGS: LOWER CHEST: No significant findings. No nodules or infiltrates. LIVER: Normal size. No masses. No dilated ducts. SPLEEN: Normal size. No focal lesions. PANCREAS: No masses. No significant calcifications. No adjacent inflammation or peripancreatic fluid collections. Pancreatic duct not dilated. GALLBLADDER: No identified stones by CT criteria. No inflammatory changes to suggest cholecystitis. ADRENAL GLANDS: No significant masses or asymmetry. RIGHT KIDNEY AND URETER: No solid masses. No significant calcifications. No hydronephrosis or hyd roureter. LEFT KIDNEY AND URETER: No solid masses. No significant calcifications. No hydronephrosis or hydr oureter. AORTA AND VESSELS: No aneurysm. No dissection. Renal arteries, SMA, celiac without stenosis. RETROPERITONEUM: No retroperitoneal adenopathy, hemorrhage or masses. BOWEL AND PERITONEAL CAVITY: There is a large amount of stool throughout the colon consistent with co nstipation. No bowel wall thickening. No mesenteric inflammation. APPENDIX: Normal. PELVIS: No mass. No free fluid. Normal bladder. ABDOMINAL WALL: No masses. No hernias. BONES: No significant or acute findings. OTHER: No other significant finding. IMPRESSION: Constipation. No other significant findings. TECHNICAL DOCUMENTATION: JOB ID: [id number] Quality ID # [id number]: Final reports with documentation of one or more dose reduction techniques (e.g., Au tomated exposure control, adjustment of the mA and/or kV according to patient size, use of iterative reconstruction technique) 2010 [employer]- All Rights Reserved Reading location - IP/workstation name: [email or web address]
[2019-05-05] MEDS ORDERED: MINERAL OIL 30 ML UDCUP PR ONE (13:18)
[2019-05-05 16:55] VITALS: BP 123/87
--- NOTE | 2019-05-06 23:10 | EKG REPORT ---
SEVERITY:- BORDERLINE ECG - SINUS RHYTHM PROBABLE LEFT ATRIAL ABNORMALITY : Confirmed by: Charleen Burns 06-May-2019 23:09:40
== END 2019-05-05 16:59 | disposition home or self-care (01) ==
LOC: ER 09:22
DX: K59.00 Constipation, unspecified (principal); R10.84 Generalized abdominal pain; R11.2 Nausea with vomiting, unspecified; R63.0 Anorexia; F17.200 Nicotine dependence, unspecified, uncomplicated; F41.9 Anxiety disorder, unspecified; F32.9 Major depressive disorder, single episode, unspecified
CPT/HCPCS: 93005; 99284; 96361; 96374; 96375; 36415; 83690; 85025; 80053; 81001; 83605; 74177; 93010; J2765; J3490; J2270; J7030

== ENCOUNTER 2019-07-12 11:42 | Emergency (ER) | payer OTHER ==
--- NOTE | 2019-07-12 11:50 | ER Document Report ---
ED Medical Screen (RME) - General Chief Complaint: Pain All Over Stated Complaint: VOMITING Primary Care Provider: [facility] [Primary Care Provider] - Follow up as needed Mode of Arrival: Wheelchair Information source: Patient Notes: 39-year-old male presents to ED for complaint of pain from his right shoulder down to his right waist all the time radiating around to his abdomen chest. He states when he gets real sharp pains he has to jump up. He also seems like he is trying to pass out at times. He states he smokes 3 cigarettes a day drinks an ounce of vodka with orange juice every day. He states he was supposed to get an MRI for his body to find out why he is having this pain. He goes [facility] but they scheduled his MRI for and he has no way to go to [place] so he came to the emergency room. He states [facility] sent him to the emergency room to start a paper trail. I have greeted and performed a rapid initial assessment of this patient. A comprehensive ED assessment and evaluation of the patient, analysis of test results and completion of medical decision making process will be conducted by an additional ED providers. TRAVEL OUTSIDE OF THE [place] 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
[2019-07-12 12:16] LABS: ABSOLUTE BASOPHILS # (AUTO) 0.1 10^3/uL (0.0-0.2); ABSOLUTE MONOCYTES (AUTO) 1.1 10^3/uL (0.1-1.4); ABSOLUTE NEUT (AUTO) 11.4 10^3/uL (1.7-8.2); BASOPHILS % (AUTO) 0.9 % (0-2); EOSINOPHILS % (AUTO) 0.1 % (0-6); HEMATOCRIT 54.8 % (37.9-51.0); HEMOGLOBIN 18.4 g/dL (13.5-17.0); MEAN CORPUSCULAR HGB CONC 33.5 g/dL (32.0-36.0); MEAN CORPUSCULAR VOLUME 87 fl (80-97); MONOCYTES % (AUTO) 7.1 % (3-13); PLATELET COUNT 375 10^3/uL (150-450); RED BLOOD COUNT 6.33 10^6/uL (4.35-5.55); RED CELL DISTRIBUTION WIDTH 12.9 % (11.5-14.0); SEGMENTED NEUTROPHILS % (AUTO) 72.9 % (42-78); TOTAL CELLS COUNTED % (AUTO) 100 %; WHITE BLOOD COUNT 15.6 10^3/uL (4.0-10.5)
[2019-07-12 12:36] LABS: ALBUMIN 5.1 g/dL (3.5-5.0); ALKALINE PHOSPHATASE 55 U/L (38-126); ANION GAP 13 (5-19); ASPARTATE AMINO TRANSFERASE 31 U/L (17-59); BILIRUBIN,DIRECT 0.3 mg/dL (0.0-0.4); BLOOD UREA NITROGEN 14 mg/dL (7-20); CALCIUM 10.7 mg/dL (8.4-10.2); CARBON DIOXIDE 24 mmol/L (22-30); CHLORIDE 100 mmol/L (98-107); CREATINE KINASE 85 U/L (55-170); GLUCOSE 82 mg/dL (75-110); POTASSIUM 4.2 mmol/L (3.6-5.0); TOTAL PROTEIN 8.7 g/dL (6.3-8.2)
--- NOTE | 2019-07-12 12:40 | RADIOLOGY REPORT (SQ) ---
EXAM DESCRIPTION: CHEST 2 VIEWS COMPLETED DATE/TIME: 07/12/2019 12:30 pm REASON FOR STUDY: Pain right side abdomen chest back COMPARISON: 10/08/2018 EXAM PARAMETERS: NUMBER OF VIEWS: two views TECHNIQUE: Digital Frontal and Lateral radiographic views of the chest acquired. RADIATION DOSE: NA LIMITATIONS: none FINDINGS: LUNGS AND PLEURA: No opacities, masses or pneumothorax. No pleural effusion. MEDIASTINUM AND HILAR STRUCTURES: Possible left upper mediastinal mass adjacent to/overlying the aort ic knob. Recommend chest CT with contrast for further evaluation. HEART AND VASCULAR STRUCTURES: Heart normal size. No evidence for failure. BONES: No acute findings. HARDWARE: None in the chest. OTHER: No other significant finding. IMPRESSION: Possible upper mediastinal mass. Recommend CT of the chest with contrast for further ev aluation. TECHNICAL DOCUMENTATION: JOB ID: [id number] [employer]- All Rights Reserved Reading location - IP/workstation name: [email or web address]
[2019-07-12] MEDS ORDERED: MORPHINE SULFATE 10 MG/ML INJ IV PRN (12:44)
[2019-07-12] MEDS ORDERED: ONDANSETRON HCL INJ/PF 4 MG/2 ML SDV IV ONE (12:44)
[2019-07-12] MEDS ORDERED: NORMAL SALINE 500 ML IV ONE (12:45)
[2019-07-12 12:48] LABS: CREATINE KINASE MB 0.52 ng/mL (<4.55)
[2019-07-12 12:49] LABS: TROPONIN I < 0.012 ng/mL
--- NOTE | 2019-07-12 12:53 | ER Document Report ---
ED General - General Chief Complaint: Nausea/Vomiting Stated Complaint: VOMITING Time Seen by Provider: 07/12/19 12:16 Primary Care Provider: [facility] IGOR OVALLE [NO LOCAL MD] - Follow up as needed Mode of Arrival: Wheelchair TRAVEL OUTSIDE OF THE [place] IN LAST 30 DAYS: No - HPI Notes: This is a 29-year-old gentleman who presents today with a complaint of right sided chest wall/rib pain radiating to his right upper quadrant and now up to his right shoulder. Patient states that pain has been ongoing since June 27. He describes pain as sharp, sometimes spasmic which makes it to have nausea and vomiting. Patient states pain is worse with movement and palpation. He denies any trauma. He had a slight cough a couple weeks ago but that is since resolved. Pain is also worse with inspiration. He denies any fever or chills. He describes his symptoms as moderate to severe. 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 denies: Palpitations, Heart racing Gastrointestinal: Abdominal pain, Nausea, Vomiting. denies: Diarrhea, Constipation Neurological/Psychological: denies: Headaches -: Yes All other systems reviewed and negative Physical Exam - Vital signs Vitals: Temp Pulse Resp BP Pulse Ox 98.2 F 99 18 137/98 H 100 07/12/19 11:50 07/12/19 11:50 07/12/19 11:50 07/12/19 11:50 07/12/19 11:50 - General General appearance: Alert Notes: Patient appears uncomfortable, in pain. - Respiratory Respiratory status: No respiratory distress Chest status: Tender Breath sounds: Normal Chest palpation: Tender - Tenderness in the right lateral chest wall. There is pain with movement. There is some splinting.. No: Flail segment, [place] frothy sputum, Sucking chest wound - Cardiovascular Rhythm: Regular Heart sounds: Normal auscultation Murmur: No - Abdominal Inspection: Normal Distension: No distension Bowel sounds: Normal Tenderness: Tender - There is right upper tenderness in the right lateral abdominal wall tenderness to palpation. Organomegaly: No organomegaly - Back Back: Normal - Right trapezius tenderness. There is no midline tenderness., Tender - Extremities General upper extremity: Normal inspection, Nontender, Normal color, Normal ROM, Normal temperature General lower extremity: Normal inspection, Nontender, Normal color, Normal ROM, Normal temperature, Normal weight bearing. No: Lashaun's sign - Neurological Neuro grossly intact: Yes Cognition: Normal Orientation: AAOx4 [place] Coma Scale Eye Opening: Spontaneous [place] Coma Scale Verbal: Oriented [place] Coma Scale Motor: Obeys Commands [place] Coma Scale Total: 15 Speech: Normal Motor strength normal: LUE, RUE, LLE, RLE Sensory: Normal Course - Re-evaluation Re-evalutation: 07/12/19 12:51 Differential diagnosis includes lung mass versus pulmonary embolus versus pneumonia versus intra-abdominal mass versus cholelithiasis/cholecystitis. Given chest x-ray findings of a mediastinal mass, I will get CT of the chest and also CT of the abdomen and pelvis. Will treat patient's pain. EKG shows normal sinus rhythm at 91 bpm. LVH. Normal axis. Normal intervals. No acute injury pattern. 07/12/19 14:[address] reviewed. Patient's care discussed with Dr. Bergeron, oncology. She recommends I check with the radiologist if this can be biopsied via interventional radiology of nasal bronchoscopy. I discussed patient's care with the radiologist Dr. Simeon. He reviewed the CT and advises that biopsy can be done with interventional radiology. I offered to admit this patient for pain control and for further work-up. Jennifer ardon declines admission. He wants to go home. He states his got things to do at home and will have this done as an outpatient. I discussed the care with Dr. Bergeron again. She is fine with discharge. She will follow-up with the patient as an outpatient for further work-up including biopsy and management. - Vital Signs Vital signs: Temp Pulse Resp BP Pulse Ox 98.2 F 99 21 H 137/98 H 99 07/12/19 11:50 07/12/19 11:50 07/12/19 14:00 07/12/19 11:50 07/12/19 14:00 - Laboratory Result Diagrams: 07/12/19 12:06 07/12/19 12:06 Laboratory results interpreted by me: 07/12/19 07/12/19 12:06 12:06 WBC 15.6 H RBC 6.33 H Hgb 18.4 H Hct 54.8 H Absolute Neuts (auto) 11.4 H Calcium 10.7 H Total Bilirubin 2.0 H Total Protein 8.7 H Albumin 5.1 H Discharge - Discharge Clinical Impression: Mediastinal mass Nausea and vomiting Qualifiers: Vomiting type: unspecified Vomiting Intractability: non-intractable Qualified Code(s): R11.2 - Nausea with vomiting, unspecified Condition: Stable Disposition: HOME, SELF-CARE Instructions: Vomiting ([facility]) Additional Instructions: Your CT scan shows a mass in your chest as discussed. Follow-up with oncologist as discussed. Call for appointment as soon as possible for further evaluation. Prescriptions: Oxycodone HCl/Acetaminophen [Percocet 5-325 mg Tablet] 1 tab PO ASDIR PRN #25 tab PRN Reason: Ondansetron [Zofran Odt 4 mg Tablet] 1 - 2 tab PO Q4H PRN #15 tab.rapdis PRN Reason: For Nausea/Vomiting Referrals: JATIN BERGERON MD [ACTIVE STAFF] - Follow up tomorrow (Call tomorrow to set up follow-up appointment.) [facility] [NO LOCAL MD] - Follow up in 3-5 days
--- NOTE | 2019-07-12 13:39 | RADIOLOGY REPORT (SQ) ---
EXAM DESCRIPTION: CTA CHEST COMPLETED DATE/TIME: 07/12/2019 1:22 pm REASON FOR STUDY: pleuritic pain, mass ? PE COMPARISON: Chest x-ray done earlier the same day. TECHNIQUE: CT scan of the chest performed using helical scanning technique with dynamic intravenous contrast injection. Images reviewed with lung, soft tissue and bone windows. Reconstructed coronal and sagittal MPR images reviewed. Additional 3 dimensional post-processing performed to develop Maximal Intensity Projection images (PA P). All images stored on PACS. All CT scanners at this facility use dose modulation, iterative reconstruction, and/or weight based d osing when appropriate to reduce radiation dose to as low as reasonably achievable (ALARA). [facility]: Dose Right [facility]: CareDose [facility]: Dose Right [facility]: Teradose 4D [facility]: DoubleUp CONTRAST TYPE AND DOSE: contrast/concentration: Isovue 350.00 mg/ml; Total Contrast Delivered: 81.0 ml; Total Saline Delivered: 70.0 ml Contrast bolus adequate for pulmonary arteries and aorta. RENAL FUNCTION: BUN 14, creatinine 0.93 RADIATION DOSE: . LIMITATIONS: None. FINDINGS: LUNGS AND PLEURA: No masses, infiltrates, or pneumothorax. No pleural effusions or pleura l calcifications. AORTA AND GREAT VESSELS: No aneurysm. Contrast bolus not optimized for the aorta. HEART: No pericardial effusion. No significant coronary artery calcifications. PULMONARY ARTERIES: No emboli visualized in the main pulmonary arteries or the segmental branches. HILAR AND MEDIASTINAL STRUCTURES: There is a 5.1 x 3.9 cm upper mediastinal mass. Small lymph nodes are present in the AP window. There is some calcification. Differential includes thymoma, lymphoma, teratoma and thyroid mass. The lesion appears separate from normal appearing thyroid. HARDWARE: None in the chest. UPPER ABDOMEN: No significant findings. Limited exam. THYROID AND OTHER SOFT TISSUES: No masses. No adenopathy. BONES: No acute or significant finding. 3D MIPS: Confirm above findings. OTHER: No other significant finding. IMPRESSION: Anterior, superior mediastinal mass as described. No pulmonary emboli. Differential in cludes thymoma, lymphoma and teratoma. The lesion appears to be separate from the thyroid. COMMENT: Quality ID # 436: Final reports with documentation of one or more dose reduction techniques (e.g., Automated exposure control, adjustment of the mA and/or kV according to patient size, use of iterative reconstruction technique) TECHNICAL DOCUMENTATION: JOB ID: [id number] [employer]- All Rights Reserved Reading location - IP/workstation name: [email or web address]
--- NOTE | 2019-07-12 13:42 | RADIOLOGY REPORT (SQ) ---
EXAM DESCRIPTION: CT ABD/PELVIS WITH IV ONLY COMPLETED DATE/TIME: 07/12/2019 1:22 pm REASON FOR STUDY: RUQ pain, vomiting ? mass COMPARISON: None. TECHNIQUE: CT scan of the abdomen and pelvis performed using helical scanning technique with dynamic intravenous contrast injection. No oral contrast. Images reviewed with lung, soft tissue, and bone windows. Reconstructed coronal and sagittal MPR images reviewed. Delayed images for evaluation of the urinary system also acquired. All images stored on PACS. All CT scanners at this facility use dose modulation, iterative reconstruction, and/or weight based d osing when appropriate to reduce radiation dose to as low as reasonably achievable (ALARA). [facility]: Dose Right [facility]: CareDose [facility]: Dose Right [facility]: Teradose 4D [facility]: Porch CONTRAST TYPE AND DOSE: 81 mL Omnipaque 350 iodinated contrast IV RENAL FUNCTION: None required. The patient is less than 50 years old. RADIATION DOSE: CT Rad equipment meets quality standard of care and radiation dose reduction techniq ues were employed. CTDIvol: 9.9 - 14.3 mGy. DLP: 1800 mGy-cm.. LIMITATIONS: None. FINDINGS: LOWER CHEST: No significant findings. No nodules or infiltrates. LIVER: Normal size. No masses. No dilated ducts. SPLEEN: Normal size. No focal lesions. PANCREAS: No masses. No significant calcifications. No adjacent inflammation or peripancreatic fluid collections. Pancreatic duct not dilated. GALLBLADDER: No identified stones by CT criteria. No inflammatory changes to suggest cholecystitis. ADRENAL GLANDS: No significant masses or asymmetry. RIGHT KIDNEY AND URETER: No solid masses. No significant calcifications. No hydronephrosis or hyd roureter. LEFT KIDNEY AND URETER: No solid masses. No significant calcifications. No hydronephrosis or hydr oureter. AORTA AND VESSELS: No aneurysm. No dissection. Renal arteries, SMA, celiac without stenosis. RETROPERITONEUM: No retroperitoneal adenopathy, hemorrhage or masses. BOWEL AND PERITONEAL CAVITY: No masses or inflammatory changes. No free fluid or peritoneal masses. APPENDIX: Normal. PELVIS: No mass. No free fluid. Normal bladder. ABDOMINAL WALL: No masses. No hernias. BONES: No significant or acute findings. OTHER: No other significant finding. IMPRESSION: No CT abnormality of the abdomen or pelvis to explain right upper quadrant abdominal fam n. TECHNICAL DOCUMENTATION: JOB ID: [id number] Quality ID # [id number]: Final reports with documentation of one or more dose reduction techniques (e.g., Au tomated exposure control, adjustment of the mA and/or kV according to patient size, use of iterative reconstruction technique) 2010 [employer]- All Rights Reserved Reading location - IP/workstation name: [email or web address]
[2019-07-12 16:05] VITALS: BP 116/92
--- NOTE | 2019-07-12 19:53 | EKG REPORT ---
SEVERITY:- ABNORMAL ECG - SINUS RHYTHM PROBABLE LEFT VENTRICULAR HYPERTROPHY : Confirmed by: Cheryl Rockwell MD 12-Jul-2019 19:52:11
== END 2019-07-12 16:05 | disposition home or self-care (01) ==
LOC: ER 11:42
DX: J98.59 Other diseases of mediastinum, not elsewhere classified (principal); R11.2 Nausea with vomiting, unspecified; R07.81 Pleurodynia; R10.11 Right upper quadrant pain; M25.511 Pain in right shoulder; R05 Cough; F17.200 Nicotine dependence, unspecified, uncomplicated
CPT/HCPCS: 93005; 36415; 82553; 82550; 85025; 80053; 84484; 71046; 71275; 74177; 93010; J2270; J2405; J7040

== ENCOUNTER 2019-07-23 21:23 | Emergency (ER) | payer OTHER ==
[2019-07-23] MEDS ORDERED: LORAZEPAM INJ 2 MG/1 ML VIAL IV ONE (21:37)
--- NOTE | 2019-07-23 21:59 | ER Document Report ---
ED General - General Chief Complaint: Seizure Stated Complaint: POSSIBLE SEIZURE Time Seen by Provider: 07/23/19 21:36 Primary Care Provider: IGOR EMANUEL MD [Primary Care Provider] - Follow up as needed TRAVEL OUTSIDE OF THE [place] IN LAST 30 DAYS: No - HPI Notes: This is a 39-year-old male who presents via rescue for evaluation of reported seizure activity at home. History is related by EMS as well as the patient. Patient states he does have a history of seizure disorder but cannot afford the medication. Patient states "they usually give me Percocet for my seizures because of the headaches and something that starts with an F for the nausea." Medic in room with patient reports that during reported seizure activity patient was able to speak, respond to voice, and open his eyes. Medic denies seeing evidence of urinary or stool incontinence during initial assessment of patient. Medic states that the only other medical history he is aware of with the patient is a history of a "chest mass" that he was seen and evaluated for at an outside medical facility. 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 Denies: Hx Peritoneal Dialysis GI Medical History: Reports: None Musculoskeletal Medical History: Reports None Psychiatric Medical History: Reports: Hx Anxiety - Immunizations Immunizations up to date: Yes Hx Diphtheria, Pertussis, Tetanus Vaccination: Yes Review of Systems - Review of Systems Constitutional: Weakness EENT: No symptoms reported Cardiovascular: No symptoms reported Respiratory: No symptoms reported Gastrointestinal: No symptoms reported Genitourinary: No symptoms reported Male Genitourinary: No symptoms reported Musculoskeletal: No symptoms reported Skin: No symptoms reported Hematologic/Lymphatic: No symptoms reported Neurological/Psychological: Tremor -: Yes All other systems reviewed and negative Physical Exam - Vital signs Vitals: Temp Pulse Ox 98.6 F 98 07/23/19 21:25 07/23/19 21:25 - General General appearance: Other - Patient is lying in bed, shaking his extremities at times, able to speak voluntarily, opens his eyes on command, states that he is currently having seizure activity. In distress: None - HEENT Head: Normocephalic, Atraumatic Eyes: Normal Pupils: PERRL Mouth/Lips: Other - A small amount of blood is present on the patient's right lower lip. There is no evidence of lip laceration or dental trauma on inspection of the oropharynx. Pharynx: No: Blood in hypopharynx Neck: Normal - Respiratory Respiratory status: No respiratory distress Chest status: Nontender Breath sounds: Normal Chest palpation: Normal - Cardiovascular Rhythm: Regular Heart sounds: Normal auscultation Murmur: No - Abdominal Inspection: Normal Distension: No distension Bowel sounds: Normal Tenderness: Nontender Organomegaly: No organomegaly - Extremities General upper extremity: Normal inspection, Nontender, Normal color, Normal ROM, Normal temperature General lower extremity: Normal inspection, Nontender, Normal color, Normal ROM, Normal temperature, Normal weight bearing. No: Lashaun's sign - Neurological Neuro grossly intact: Yes Cognition: Normal Orientation: AAOx4 [place] Coma Scale Eye Opening: Spontaneous [place] Coma Scale Verbal: Oriented [place] Coma Scale Motor: Obeys Commands [place] Coma Scale Total: 15 Speech: Normal Cranial nerves: Normal Motor strength normal: LUE, RUE, LLE, RLE Sensory: Normal - Psychological Associated symptoms: Other - Patient makes intermittent eye contact. Patient has a somewhat odd affect and that he is speaking during his shaking episodes and mentioning treatment of his symptoms with specifically Percocet - Skin Skin Temperature: Warm Skin Moisture: Dry Skin Color: Normal Course - Re-evaluation Re-evalutation: 07/24/19 00:45 Patient just evaluated by this MD. Patient has not had any further episodes of shaking in the emergency department during his visit. Patient was awoken from sound sleep with light touch and verbal stimuli. Patient's fingerstick blood sugar was checked, result was 87. Patient was informed that there were no emergent findings on his evaluation and that he would be discharged home. Patient was also informed that this MD does not write Percocet for seizures. Patient began to say something about needing Percocet for his stomach pain. This MD told patient that I did not prescribe Percocet to treat stomach pain. I informed the patient that I have completed a medical screening exam on him and I have found no evidence of a acute medical emergency and will be discharging him home. Patient expressed understanding of this. Impression: 39-year-old male with a reported history of seizure disorder presenting with symptoms that appear more suggestive of pseudoseizure activity. Behavior is suggestive of drug-seeking behavior. Differential diagnosis: Seizure disorder, pseudoseizures, malingering, drug- seeking behavior, electrolyte abnormality, cardiac dysrhythmia Diagnosis: #1 pseudoseizure activity #2 drug-seeking behavior #3 cannabis abuse Plan: Will discharge the patient with patient education about pseudoseizures and education about opioid abuse as well as cannabis abuse. Patient is instructed to follow-up with his PCP. Patient will also be given instructions to return to the emergency department via 911 if for any reason his symptoms recur or worsen. - Vital Signs Vital signs: Temp Pulse Resp BP Pulse Ox 98.4 F 19 115/91 H 96 07/23/19 21:31 07/23/19 23:01 07/23/19 23:00 07/23/19 23:01 - Laboratory Result Diagrams: 07/23/19 21:55 07/23/19 21:55 Laboratory results interpreted by me: 07/23/19 07/23/19 07/23/19 21:55 21:55 22:57 WBC 12.8 H Absolute Neuts (auto) 9.7 H Sodium 136.2 L Carbon Dioxide 21 L Glucose 66 L Urine Protein 30 H Urine Blood MODERATE H - EKG Interpretation by Me Additional EKG results interpreted by me: 07/23/19 23:31 EKG done on 07/23/2019 at 2157 hrs. was interpreted by this MD. Findings: Normal sinus rhythm, rate 88, normal axis, narrow QRS, no obvious ST elevation or depression. Impression normal sinus rhythm with nonspecific ST segments. Discharge - Discharge Clinical Impression: Pseudoseizure, Drug-seeking behavior, Cannabis abuse Condition: Good Disposition: HOME, SELF-CARE Additional Instructions: Return to the Emergency Department without delay if any worse. NARCOTIC / OPIOD ABUSE: Narcotics and opiods are pain-relieving drugs that are often abused. They are addicting. Narcotics cause euphoria, but it often takes increasing amounts to "feel good" and avoid withdrawal symptoms. Overdose of narcotics causes small pupils, coma, and decreased breathing. It's a common cause of . Purity of street narcotics is unpredictable. Injection of narcotics is risky for abscesses, endocarditis (heart infection), pneumonia, and AIDS. Withdrawal from narcotics causes goose bumps, watery mouth, sweating, nasal congestion, muscle aches, abdominal cramps, vomiting, and diarrhea. There's often restlessness and confusion. Treatment programs are available, but you must make the decision to quit. Medication (such as clonidine) can be prescribed to control the symptoms of withdrawal. FOLLOW-UP CARE: If you have been referred to a physician for follow-up care, call the physicians office for an appointment as you were instructed or within the next two days. If you experience worsening or a significant change in your symptoms, notify the physician immediately or return to the Emergency Department at any time for re-evaluation.Drug Screening Screening for drug overdoses and "street drugs" is often done during the medical evaluation. This is not a reflection on you -- drug screening is required on every patient in your circumstance. Drug tests are needed to evaluate new seizures, confusion, agitation, or any unexplained altered mental state. Drug tests may be required for depressed patients, and for those entering a drug or alcohol treatment program. Tests for recreational drugs (narcotics, cocaine, amphetamines, marijuana) are often required as part of a pre-employment exam. They may also be required by your employer in evaluating work-related injuries. Please talk to the doctor if you have any questions about your test results or treatment plan. Your episode of shaking today was likely due to something called PNES, also known as pseudogenic non-epileptiform seizures. These are often also often referred to as pseudoseizures. These are not voluntary. However, they are not coming from an abnormal focus in your brain like somebody who has true epilepsy. These episodes can often be triggered by stress, anxiety, or not taking your normal medications. Please follow-up with your primary care doctor at your earliest ability. Return for any additional concerns you may have including if you develop a fever, nausea, vomiting, pass out, have focal weakness or numbness, or any other symptoms that are concerning to you. Referrals: IGOR EMANUEL MD [Primary Care Provider] - Follow up as needed
[2019-07-23 22:09] LABS: ABSOLUTE BASOPHILS # (AUTO) 0.1 10^3/uL (0.0-0.2); ABSOLUTE LYMPHOCYTES (AUTO) 2.3 10^3/uL (0.5-4.7); ABSOLUTE MONOCYTES (AUTO) 0.7 10^3/uL (0.1-1.4); ABSOLUTE NEUT (AUTO) 9.7 10^3/uL (1.7-8.2); BASOPHILS % (AUTO) 0.5 % (0-2); EOSINOPHILS % (AUTO) 0.1 % (0-6); HEMATOCRIT 47.9 % (37.9-51.0); HEMOGLOBIN 15.7 g/dL (13.5-17.0); MEAN CORPUSCULAR HEMOGLOBIN 28.8 pg (27.0-33.4); MEAN CORPUSCULAR HGB CONC 32.8 g/dL (32.0-36.0); MEAN CORPUSCULAR VOLUME 88 fl (80-97); MONOCYTES % (AUTO) 5.6 % (3-13); PLATELET COUNT 326 10^3/uL (150-450); RED BLOOD COUNT 5.45 10^6/uL (4.35-5.55); RED CELL DISTRIBUTION WIDTH 12.7 % (11.5-14.0); SEGMENTED NEUTROPHILS % (AUTO) 75.8 % (42-78); TOTAL CELLS COUNTED % (AUTO) 100 %; WHITE BLOOD COUNT 12.8 10^3/uL (4.0-10.5)
[2019-07-23 22:31] LABS: ALBUMIN 4.5 g/dL (3.5-5.0); ALKALINE PHOSPHATASE 39 U/L (38-126); ANION GAP 14 (5-19); ASPARTATE AMINO TRANSFERASE 29 U/L (17-59); BILIRUBIN,DIRECT 0.1 mg/dL (0.0-0.4); BILIRUBIN,TOTAL 0.9 mg/dL (0.2-1.3); BLOOD UREA NITROGEN 8 mg/dL (7-20); CALCIUM 9.5 mg/dL (8.4-10.2); CARBON DIOXIDE 21 mmol/L (22-30); CHLORIDE 101 mmol/L (98-107); POTASSIUM 3.6 mmol/L (3.6-5.0); TOTAL PROTEIN 7.6 g/dL (6.3-8.2)
[2019-07-23 22:37] LABS: GLUCOSE 66 mg/dL (75-110)
--- NOTE | 2019-07-23 22:44 | RADIOLOGY REPORT (SQ) ---
EXAM DESCRIPTION: XR CHEST 1 VIEW COMPLETED DATE/TME: 07/23/2019 21:44 CLINICAL HISTORY: 39 years, Male, s/p "seizure", h/o "chest mass" COMPARISON: Multiple priors, most recent from 07/12/2019 NUMBER OF VIEWS: One TECHNIQUE: Single frontal view of the chest was obtained portably LIMITATIONS: None. FINDINGS: Cardiac and mediastinal contours are stable in appearance. Known mediastinal mass is poorly visualized on this exam. Lungs are clear. No pleural effusion or pneumothorax. IMPRESSION: No acute disease. copyright 2010 [employer]- All Rights Reserved
[2019-07-23 23:30] LABS: APPEARANCE,URINE CLEAR; BILIRUBIN,URINE NEGATIVE (NEGATIVE); COLOR,URINE STRAW; GLUCOSE, URINE NEGATIVE (NEGATIVE); KETONES,URINE NEGATIVE (NEGATIVE); LEUKOCYTE ESTERASE,URINE NEGATIVE (NEGATIVE); NITRITE,URINE NEGATIVE (NEGATIVE); PROTEIN,URINE 30 mg/dL (NEGATIVE); URINE SPECIFIC GRAVITY 1.012; UROBILINOGEN,URINE NEGATIVE mg/dL (<2.0)
[2019-07-24 00:08] LABS: URINE AMPHETAMINES SCREEN NEGATIVE; URINE BARBITURATES SCREEN NEGATIVE; URINE BENZODIAZEPINES SCREEN NEGATIVE; URINE COCAINE SCREEN NEGATIVE; URINE MARIJUANA (THC) SCREEN UNCONFIRMED POSITIVE; URINE METHADONE SCREEN NEGATIVE; URINE PHENCYCLIDINE SCREEN NEGATIVE
[2019-07-24 01:33] VITALS: BP 102/69
--- NOTE | 2019-07-24 06:27 | EKG REPORT ---
SEVERITY:- ABNORMAL ECG - SINUS RHYTHM PROBABLE LEFT ATRIAL ABNORMALITY ST ELEVATION SUGGESTS NORMAL VARIANT : Confirmed by: Brenden Molina MD 24-Jul-2019 06:26:22
== END 2019-07-24 01:41 | disposition home or self-care (01) ==
LOC: ER 21:23
DX: F44.5 Conversion disorder with seizures or convulsions (principal); F12.10 Cannabis abuse, uncomplicated; Z76.5 Malingerer [conscious simulation]; Z91.048 Other nonmedicinal substance allergy status
CPT/HCPCS: 93005; 36415; 82962; 85025; 80053; 81001; 80307; 71045; 93010; J2060; 96374; 99284

== ENCOUNTER → 2019-09-05 | Outpatient (CLI) | payer OTHER ==
--- NOTE | 2019-09-06 09:23 | RADIOLOGY REPORT (SQ) ---
EXAM DESCRIPTION: PET CT SKULL/THIGH COMPLETED DATE/TIME: 09/05/2019 3:59 pm REASON FOR STUDY: OTHER DISEASES OF MEDIASTINUM, NOT ELSEWHERE CLASSIFIED J98.59 OTHER DISEASES OF MEDIASTINUM, NOT ELSEWHERE CLASSIFI COMPARISON: CT of the chest, abdomen and pelvis from 07/12/2019. RADIONUCLIDE AND DOSE: 11.23 mCi F18 FDG The route of agent administration: Intravenous FASTING BLOOD SUGAR: 89 mg/dl CONTRAST TYPE AND DOSE: No CT contrast given. TECHNIQUE: Blood glucose level was verified. Above dose of FDG was injected intravenously. 2-D seg mented attenuation correction images were obtained from the base of the skull to the midthighs. Nonc ontrast CT images were obtained for attenuation correction and fusion with emission images. CT image s were performed without oral or intravenous contrast and are not sensitive for parenchymal lesions. A series of overlapping emission PET images were obtained. Images reviewed and manipulated at [facility] work station by the radiologist. Images stored on PACS. LIMITATIONS: None. FINDINGS: HEAD AND NECK: No areas of abnormal metabolic activity in the soft tissues of the head and neck. CHEST: There is a mass in the left prevascular mediastinum with lobular margins that contains intra-s ubstance punctate calcifications and measures up to 6 cm in transverse diameter and 4 cm in AP diamet er ; on PET the mass demonstrates heterogeneous avid FDG uptake with a recorded maximum SUV of 6.2 (t he average liver SUV equals 2). There is no hypermetabolic supraclavicular, axillary, mediastinal or hilar adenopathy. There are no hypermetabolic pleural-based nodules. ABDOMEN AND PELVIS: The liver demonstrates heterogeneous non-focal FDG uptake with an average SUV of 2. There is expected physiologic activity throughout the gastrointestinal and genitourinary tracts. No areas of abnormal metabolic activity are identified in the abdomen and pelvis. PROXIMAL LOWER EXTREMITIES: No areas of abnormal metabolic activity in the soft tissues of the lower extremities. BONES: No areas of abnormal metabolic activity in the imaged axial and appendicular skeleton. ADDITIONAL CT FINDINGS: There is no abnormality of the thyroid gland. The spleen is normal in size. There is no enlarged mesenteric or retroperitoneal adenopathy. OTHER: No other findings. 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 There is no hyperme tabolic adenopathy or evidence of drop metastases. Based on the age of the patient, the absence of a denopathy and the location of the lesion the favored differential consideration is a seminoma. Other considerations include a thymoma and lymphoma. TECHNICAL DOCUMENTATION: JOB ID: [id number] [employer]- All Rights Reserved Reading location - IP/workstation name: [email or web address]
== END ==
LOC: RAD 09:00
PROVIDERS: ATTEND Internal Medicine Hematology & Oncology
DX: J98.59 Other diseases of mediastinum, not elsewhere classified (principal)
CPT/HCPCS: 78815; A9552

== ENCOUNTER 2019-09-21 08:54 | Day surgery (SDC) | payer OTHER ==
[2019-09-21 09:33] LABS: HEMATOCRIT 50.6 % (37.9-51.0); HEMOGLOBIN 16.8 g/dL (13.5-17.0); MEAN CORPUSCULAR HEMOGLOBIN 29.2 pg (27.0-33.4); MEAN CORPUSCULAR HGB CONC 33.2 g/dL (32.0-36.0); MEAN CORPUSCULAR VOLUME 88 fl (80-97); PLATELET COUNT 287 10^3/uL (150-450); RED BLOOD COUNT 5.75 10^6/uL (4.35-5.55); RED CELL DISTRIBUTION WIDTH 13.1 % (11.5-14.0); WHITE BLOOD COUNT 8.4 10^3/uL (4.0-10.5)
[2019-09-21 10:36] LABS: INTERNATIONAL RATION (INR) 0.98; PARTIAL THROMBOPLASTIN TIME 32.6 SEC (23.5-35.8)
[2019-09-21] MEDS ORDERED: FENTANYL CITRATE INJ/PF 100 MCG/2 ML AMPUL ONE ×2 (10:47→11:19)
[2019-09-21] MEDS ORDERED: MIDAZOLAM 2 MG/2 ML INJ ONE ×2 (10:47→11:19)
[2019-09-21 11:09] LABS: BLOOD UREA NITROGEN 9 mg/dL (7-20)
--- NOTE | 2019-09-21 12:19 | RADIOLOGY REPORT (SQ) ---
EXAM DESCRIPTION: CHEST SINGLE VIEW COMPLETED DATE/TIME: 09/21/2019 11:58 am REASON FOR STUDY: POST LUNG BIOPSY COMPARISON: 08/09/2019. EXAM PARAMETERS: NUMBER OF VIEWS: One view. TECHNIQUE: Single frontal radiographic view of the chest acquired. RADIATION DOSE: NA LIMITATIONS: None. FINDINGS: LUNGS AND PLEURA: No opacities, masses or pneumothorax. No pleural effusion. MEDIASTINUM AND HILAR STRUCTURES: Mediastinal mass. HEART AND VASCULAR STRUCTURES: Heart normal in size. Normal vasculature. BONES: No acute findings. HARDWARE: None in the chest. OTHER: No other significant finding. IMPRESSION: NO PNEUMOTHORAX OR OTHER FINDINGS AFTER PERCUTANEOUS BIOPSY OF THE ANTERIOR MEDIASTINAL MASS. TECHNICAL DOCUMENTATION: JOB ID: [id number] [employer]- All Rights Reserved Reading location - IP/workstation name: [email or web address]
--- NOTE | 2019-09-21 13:30 | RADIOLOGY REPORT (SQ) ---
EXAM DESCRIPTION: CT BIOPSY LUNG/MEDIASTINUM; CT NEEDLE PLACEMENT COMPLETED DATE/TIME: 09/21/2019 11:43 am; 09/21/2019 11:42 am REASON FOR STUDY: LUNG MASS; LUNG MASS, LUNG BIOPSY J98.59 OTHER DISEASES OF MEDIASTINUM, NOT ELSEW HERE CLASSIFI COMPARISON: 07/12/2019. TECHNIQUE: CT guided biopsy of the anterior mediastinal mass performed with conscious sedation. CT Fluoroscopy Time: 7.[address] scanners at this facility use dose modulation, iterative reconstruction, and/or weight based d osing when appropriate to reduce radiation dose to as low as reasonably achievable (ALARA). [facility]: Dose Right [facility]: CareDose [facility]: Dose Right [facility]: Teradose 4D [facility]: [employer] RADIATION DOSE: CT Rad equipment meets quality standard of care and radiation dose reduction techniq ues were employed. CTDIvol: 8.5 - 14.2 mGy. DLP: 356 mGy-cm. mGy. FINDINGS: After obtaining informed consent and explaining the risks and benefits of conscious sedati on,the patient agreed to the procedure. Prior to the procedure, a time out was performed to verify th e patient's identity and planned procedure. IV sedation was administered and physician direction by the registered nurse using 1 milligrams of Ve rsed and 75 micrograms of fentanyl, for conscious sedation. Physiologic monitoring was provided befor e, during, and after sedation. The total sedation time was 30 minutes. Documentation face to face time, the performing proceduralist, spent monitoring the patient: [address] scanning was performed to localize the percutaneous site for the biopsy approach. After sterile skin prep and local lidocaine for skin and deep tissue anesthesia, a coaxial biopsy nee dle was used to obtain multiple cores of tissue. The biopsy tissue was submitted to the lab in formal in. There were no immediate complications. Pathology is pending at the time of dictation. IMPRESSION: CT GUIDED BIOPSY OF THE ANTERIOR MEDIASTINAL MASS PERFORMED WITHOUT IMMEDIATE COMPLICATI ON. PATHOLOGY PENDING. COMMENT: Quality ID [id number]: Final reports for procedures using fluoroscopy that document radiation exp osure indices, or exposure time and number of fluorographic images (if radiation exposure indices are not available) Patient medication list reviewed: Yes- Quality ID# [id number]:Eligible professional attests to documenting i n the medical record they obtained, updated, or reviewed the patient's current medications.. TECHNICAL DOCUMENTATION: JOB ID: [id number] Quality ID# [id number]: Final reports with documentation of one or more dose reduction techniques (e.g., Aut omated exposure control, adjustment of the mA and/or kV according to patient size, use of iterative r econstruction technique) 2010 [employer]- All Rights Reserved Reading location - IP/workstation name: [email or web address]
--- NOTE | 2019-09-21 14:03 | RADIOLOGY REPORT (SQ) ---
EXAM DESCRIPTION: CHEST SINGLE VIEW COMPLETED DATE/TIME: 09/21/2019 1:52 pm REASON FOR STUDY: POST LUNG BIOPSY, *2 HOUR FILM* COMPARISON: 09/21/2019 at 1156 hours. EXAM PARAMETERS: NUMBER OF VIEWS: One view. TECHNIQUE: Single frontal radiographic view of the chest acquired. RADIATION DOSE: NA LIMITATIONS: None. FINDINGS: LUNGS AND PLEURA: No opacities, masses or pneumothorax. No pleural effusion. MEDIASTINUM AND HILAR STRUCTURES: Mediastinal mass. HEART AND VASCULAR STRUCTURES: Heart normal in size. Normal vasculature. BONES: No acute findings. HARDWARE: None in the chest. OTHER: No other significant finding. IMPRESSION: STABLE APPEARANCE. NO PNEUMOTHORAX FOLLOWING PERCUTANEOUS BIOPSY. TECHNICAL DOCUMENTATION: JOB ID: [id number] [employer]- All Rights Reserved Reading location - IP/workstation name: [email or web address]
[2019-09-21 14:23] VITALS: BP 120/85
== END 2019-09-21 13:45 | disposition home or self-care (01) ==
LOC: RAD 08:54
PROVIDERS: ATTEND Internal Medicine
DX: J98.59 Other diseases of mediastinum, not elsewhere classified (principal); F17.210 Nicotine dependence, cigarettes, uncomplicated
CPT/HCPCS: 36415; 84520; 82565; 85027; 85610; 85730; 88305 ×2; 71045; 77012; 32405; J2250; J3010

== ENCOUNTER 2019-09-22 10:39 | Observation (INO) | payer OTHER ==
[2019-09-22] MEDS ORDERED: NORMAL SALINE 1000 ML 1,000 ML IV ONE (11:01)
--- NOTE | 2019-09-22 11:28 | ER Document Report ---
ED General - General Chief Complaint: Seizure Stated Complaint: POSSIBLE SEIZURE Time Seen by Provider: 09/22/19 10:55 Primary Care Provider: [facility] [NO LOCAL MD] - Follow up as needed TRAVEL OUTSIDE OF THE [place] 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 Denies: Hx Cerebrovascular Accident Renal/ Medical History: Denies: Hx Peritoneal Dialysis Musculoskeletal Medical History: Denies Hx Arthritis Psychiatric Medical History: Reports: Hx Anxiety - Immunizations Immunizations up to date: Yes Hx Diphtheria, Pertussis, Tetanus Vaccination: Yes Physical Exam - Vital signs Vitals: Temp Pulse Resp BP Pulse Ox 98 F 119 H 21 H 148/98 H 96 09/22/19 10:56 09/22/19 10:56 09/22/19 10:56 09/22/19 10:56 09/22/19 10:56 - Notes Notes: Patient was brought in by family members for multiple complaints. He had a generalized headache that started this morning. He does have a history of headaches. Having some substernal chest pain that was located at the site of the biopsy with some shortness of breath. Some generalized abdominal pain and one episode of vomiting. Any fevers or cough associated with this. He had a biopsy yesterday because of a lung mass. Family was reported 1 episode of vomiting last night and then went to sleep. No history of trauma. Upon arrival the ambulance transfer patient had a generalized tonic-clonic seizure witnessed by nursing staff and then postictal afterwards. He reports he does have a history of seizures last one was the end of July. He has been off his medic enrique for several years though because he cannot afford them His medical history is negative for hypertension diabetes or coronary artery disease. Does have a history of seizures. History smokes does drink alcohol history is noncontributory PHYSICIAN EXAM -vital signs are noted triage note and note from triage reviewed GENERAL: Well-appearing, well-nourished and in no acute distress postictal and sleepy HEAD: Atraumatic, normocephalic. EYES: Pupils equal round and reactive to light, extraocular movements intact, sclera anicteric, conjunctiva are normal. ENT: nares patent, oropharynx clear without exudates. Moist mucous membranes. There is an abrasion on the left tongue patient is nontender NECK: supple without lymphadenopathy no meningeal signs LUNGS: Breath sounds clear to auscultation bilaterally and equal. No wheezes rales or rhonchi. Small puncture wound just lateral to the port on the left side. There is no crepitus or tenderness HEART:-Rapid and regular ABDOMEN: Soft, nontender, normoactive bowel sounds. EXTREMITIES: No deformity, no edema. NEUROLOGICAL: He is very sleepy right now. He will awaken on his own not really following commands at all and is nonverbal. He is moving all 4 extremities spontaneously downgoing toes rest of exam is limited because of his postictal state PSYCH: Normal mood, normal affect. SKIN: Warm, Dry, normal turgor, no rashes or lesions noted. BACK-nontender in the midline Addendum I did review his chart from his previous visit the end of July that time he presented with a headache and seizures there were no witnessed seizures at that time. He told staff that he usually gets treated with Percocet for his seizures his laboratory studies were unremarkable he had no seizures during the ER course and at discharge started complaining of abdominal pain requesting Percocet but was not given any Differential includes seizures dehydration electrolyte abnormalities pneumothorax Addendum back to reevaluate the patient he is now awake and alert. The headache started yesterday in the back of his head and then became generalized. Headache came on gradually got progressively worse. Was no thunderclap headache otherwise headache is ever had. She does get headaches like this several times a week. There is no associated with any blurred or double vision nausea or vomiting. There is reports of chest pain started last night substernal at the incision site it came on gradually and describes a stabbing sensation associated with pain over the left lateral chest also stabbing and is different from the substernal chest pain. There has been no fevers cough or shortness of breath with this he has some generalized abdominal pain last night that is resolved today. His appetite has been decreased for the past 2 days with minimal p.o. intake no diarrhea or dysuria Physical exam he is now alert and oriented x4' appropriately cranial nerves she has symmetrical smile faces and shoulder shrug. There is no meningeal signs. Strength is 5/5 bilaterally in upper lower extremities and toes are downgoing Course - Re-evaluation Re-evalutation: 09/22/19 15:58 ED patient is remained stable is had no additional seizures reviewing his ultrasound in the past he presented emergency department with a witnessed seizure and I started him on Keppra which he never filled so I think is less likely that he has pseudoseizures especially with his low bicarb and elevated lactate. Was given 2 L of Ringer's lactate his blood pressure been stable with no additional seizures because of his elevated lactate blood cultures were obta ined and he was given a dose of Zosyn. I did order a repeat BMP and lactic acid at 330 and 3:50 PM contacted by the lab and indicated that they were advised by hematology that is comprehensive metabolic and lactic acid were all completely wrong and that they would have to redraw and we run his blood doing now Medical decision making patient with a known history of seizures presents with a witnessed seizure and was started on Keppra. The event was witnessed by nursing staff were described tonic-clonic activity he bit his tongue and was postictal afterwards the chest pain is probably related postop. His x-ray is negative his O2 sats are good no evidence to suggest an acute coronary syndrome and is a low no life-threatening cause of his chest pain chronic headaches. This headache is not consistent with subarachnoid or meningitis abdomen is remained nontender. At this point I think the patient will need admission to the hospital so the hospitalist. I have been consulted , discussed the case with the hospitalist again after the labs will still proceed with admission for overnight observation Dictation was done using voice recognition software. There may be some grammatical errors which are unintentional I discussed results of laboratory findings and diagnostic test with steph ent/family. The treatment plan was explained and I reviewed the discharge instructions with them. Questions were answered. The patient/family verbalizes understanding At 345 - Vital Signs Vital signs: Temp Pulse Resp BP Pulse Ox 98 F 119 H 21 H 148/98 H 96 09/22/19 10:56 09/22/19 10:56 09/22/19 10:56 09/22/19 10:56 09/22/19 10:56 - Laboratory Result Diagrams: 09/22/19 14:20 09/22/19 10:45 Laboratory results interpreted by me: 09/22/19 09/22/19 09/22/19 10:45 12:49 14:20 WBC 14.1 H Absolute Neuts (auto) 11.2 H Seg Neutrophils % 79.6 H Sodium 147.1 H Carbon Dioxide 7 L* Anion Gap 36 H Glucose 129 H Calcium 10.9 H Total Bilirubin 1.5 H Total Protein 9.5 H Albumin 5.7 H Urine Protein 30 H Urine Urobilinogen 2.0 H Critical Care Note - Critical Care Note Total time excluding time spent on procedures (mins): 35 Discharge - Discharge Clinical Impression: Seizure Headache Qualifiers: Headache type: unspecified Headache chronicity pattern: chronic headache Intractability: not intractable Qualified Code(s): R51 - Headache Vomiting Qualifiers: Vomiting type: unspecified Vomiting Intractability: non-intractable Nausea presence: with nausea Qualified Code(s): R11.2 - Nausea with vomiting, uns pecified Abdominal pain Qualifiers: Abdominal location: generalized Qualified Code(s): R10.84 - Generalized abdominal pain Condition: Good Disposition: ADMITTED INPATIENT Admitting Provider: Parris (Hospitalist) Unit Admitted: [facility]: [facility] [NO [facility]AL MD] - Follow up as needed
[2019-09-22] MEDS ORDERED: RINGERS SOLUTION,LACTATED 1,000 ML IV ONE ×2 (11:40→11:44)
[2019-09-22] MEDS ORDERED: PIPERACILLIN/TAZOBACTAM 3.375 GM VIAL IV ONE (11:43)
[2019-09-22] MEDS ORDERED: LEVETIRACETAM 1000 MG/NACL-ISO 1,000 MG/100 ML RTUPB IV ONE (11:54)
--- NOTE | 2019-09-22 11:55 | RADIOLOGY REPORT (SQ) ---
EXAM DESCRIPTION: CT HEAD WITHOUT COMPLETED DATE/TIME: 09/22/2019 11:42 am REASON FOR STUDY: Seizure COMPARISON: 01/18/2019 TECHNIQUE: Axial images acquired through the brain without intravenous contrast. Images reviewed wi th bone, brain and subdural windows. Additional sagittal and coronal reconstructions were generated. Images stored on PACS. All CT scanners at this facility use dose modulation, iterative reconstruction, and/or weight based d osing when appropriate to reduce radiation dose to as low as reasonably achievable (ALARA). [facility]: Dose Right [facility]: CareDose [facility]: Dose Right [facility]: Teradose 4D [facility]: [employer] RADIATION DOSE: CT Rad equipment meets quality standard of care and radiation dose reduction techniq ues were employed. CTDIvol: 53.2 mGy. DLP: 1150 mGy-cm. mGy. LIMITATIONS: None. FINDINGS: VENTRICLES: Normal size and contour. CEREBRUM: No masses. No hemorrhage. No midline shift. No evidence for acute infarction. Normal gra y/white matter differentiation. No areas of low density in the white matter. CEREBELLUM: No masses. No hemorrhage. No alteration of density. No evidence for acute infarction. EXTRAAXIAL SPACES: No fluid collections. No masses. ORBITS AND GLOBE: No intra- or extraconal masses. Normal contour of globe without masses. CALVARIUM: No fracture. PARANASAL SINUSES: Left sphenoid sinus chronic opacification. Other paranasal sinuses are clear. SOFT TISSUES: No mass or hematoma. OTHER: No other significant finding. IMPRESSION: No acute intracranial abnormality. EVIDENCE OF ACUTE STROKE: NO. COMMENT: Quality ID # [id number]: Final reports with documentation of one or more dose reduction techniques (e.g., Automated exposure control, adjustment of the mA and/or kV according to patient size, use of iterative reconstruction technique) TECHNICAL DOCUMENTATION: JOB ID: [id number] [employer]- All Rights Reserved Reading location - IP/workstation name: [email or web address]
--- NOTE | 2019-09-22 12:27 | RADIOLOGY REPORT (SQ) ---
EXAM DESCRIPTION: CHEST SINGLE VIEW COMPLETED DATE/TIME: 09/22/2019 12:04 pm REASON FOR STUDY: Seizure COMPARISON: 09/21/2019 EXAM PARAMETERS: NUMBER OF VIEWS: One view. TECHNIQUE: Single frontal radiographic view of the chest acquired. RADIATION DOSE: NA LIMITATIONS: None. FINDINGS: LUNGS AND PLEURA: No opacities, masses or pneumothorax. No pleural effusion. MEDIASTINUM AND HILAR STRUCTURES: No masses. Contour normal. HEART AND VASCULAR STRUCTURES: Heart normal in size. Normal vasculature. BONES: No acute findings. HARDWARE: None in the chest. OTHER: No other significant finding. IMPRESSION: NO ACUTE RADIOGRAPHIC FINDING IN THE CHEST. TECHNICAL DOCUMENTATION: JOB ID: [id number] [employer]- All Rights Reserved Reading location - IP/workstation name: [email or web address]
[2019-09-22 14:01] LABS: APPEARANCE,URINE CLEAR; BILIRUBIN,URINE NEGATIVE (NEGATIVE); COLOR,URINE YELLOW; GLUCOSE, URINE NEGATIVE (NEGATIVE); KETONES,URINE NEGATIVE (NEGATIVE); LEUKOCYTE ESTERASE,URINE NEGATIVE (NEGATIVE); NITRITE,URINE NEGATIVE (NEGATIVE); PROTEIN,URINE 30 mg/dL (NEGATIVE); URINE SPECIFIC GRAVITY 1.015
[2019-09-22 14:26] LABS: URINE AMPHETAMINES SCREEN NEGATIVE; URINE BARBITURATES SCREEN NEGATIVE; URINE BENZODIAZEPINES SCREEN NEGATIVE; URINE COCAINE SCREEN NEGATIVE; URINE METHADONE SCREEN NEGATIVE; URINE PHENCYCLIDINE SCREEN NEGATIVE
[2019-09-22 14:30] LABS: URINE MARIJUANA (THC) SCREEN UNCONFIRMED POSITIVE
[2019-09-22 14:54] LABS: ABSOLUTE LYMPHOCYTES (AUTO) 2.1 10^3/uL (0.5-4.7); ABSOLUTE MONOCYTES (AUTO) 0.8 10^3/uL (0.1-1.4); ABSOLUTE NEUT (AUTO) 11.2 10^3/uL (1.7-8.2); BASOPHILS % (AUTO) 0.2 % (0-2); HEMATOCRIT 43.7 % (37.9-51.0); HEMOGLOBIN 14.8 g/dL (13.5-17.0); LYMPHOCYTES % (AUTO) 14.8 % (13-45); MEAN CORPUSCULAR HEMOGLOBIN 29.4 pg (27.0-33.4); MEAN CORPUSCULAR HGB CONC 33.8 g/dL (32.0-36.0); MEAN CORPUSCULAR VOLUME 87 fl (80-97); MONOCYTES % (AUTO) 5.4 % (3-13); PLATELET COUNT 257 10^3/uL (150-450); RED BLOOD COUNT 5.03 10^6/uL (4.35-5.55); SEGMENTED NEUTROPHILS % (AUTO) 79.6 % (42-78); TOTAL CELLS COUNTED % (AUTO) 100 %; WHITE BLOOD COUNT 14.1 10^3/uL (4.0-10.5)
[2019-09-22] MEDS ORDERED: ACETAMINOPHEN 325 MG TABLET PO ONE (16:19)
--- NOTE | 2019-09-22 16:49 | PDOC H&P ---
<SROUSH,LUTF R - Last Filed: 09/22/19 17:17> History of Present Illness Admission Date/PCP: 09/22/19 16:20 IGOR EMANUEL MD History of Present Illness: PEDRITO MAJOR is a 39 year old male past medical history of seizure disorder noncompliant due to financial reasons, status post lung biopsy on 09/21/2019 for lung mass here at [facility], was brought to ED by EMS because of headache, general abdominal pain, nausea vomiting and substernal chest pain at the site of lung biopsy done here at [facility] on 09/21/2019. In route to ED patient had a witnessed generalized tonic-clonic seizure. Initial labs showed extremely elevated lactic acid and prolactin level and steph ent was started on empiric IV antibiotics, IV Keppra and volume resuscitation. However it was later found out that the initial lab results were errors. On my encounter patient is sleeping comfortably, easily arousable oriented x3, denies any chest pain, shortness of breath, nausea, vomiting, weakness however stating that he feels very tired and prefer to rest at this time. Past Medical History Cardiac Medical History: Denies: Coronary Artery Disease, Myocardial Infarction, Hypertension Pulmonary Medical History: Denies: Asthma, Bronchitis, Chronic Obstructive Pulmonary Disease (COPD), Pneumonia Neurological Medical History: Reports: Seizures - pseudo (heat based) seizures, 3 years Musculoskeltal Medical History: Denies: Arthritis Hematology: Denies: Anemia Social History Smoking Status: Current Every Day Smoker Family History Family History: Reviewed & Not Pertinent Parental Family History Reviewed: Yes Children Family History Reviewed: Yes Sibling(s) Family History Reviewed.: Yes Medication/Allergy Home Medications: No Home Medications 09/21/19 Allergies/Adverse Reactions: cat dander Allergy (Verified 09/21/19 09:04) Physical Exam Vital Signs: Temp Pulse Resp BP Pulse Ox 98 F 119 H 21 H 148/98 H 96 09/22/19 10:56 09/22/19 10:56 09/22/19 10:56 09/22/19 10:56 09/22/19 10:56 Intake & Output 09/21/19 09/22/19 09/23/19 06:59 06:59 06:59 Intake Total 1000 Balance 1000 Weight 75.8 kg General appearance: PRESENT: no acute distress, well-developed, well-nourished, other - Tired Respiratory exam: PRESENT: clear to auscultation grazyna. ABSENT: rales, rhonchi, wheezes Cardiovascular exam: PRESENT: RRR. ABSENT: diastolic murmur, rubs, systolic murmur GI/Abdominal exam: PRESENT: normal bowel sounds, soft. ABSENT: distended, guarding, mass, organolmegaly, rebound, tenderness Neurological exam: PRESENT: alert, awake, oriented to person, oriented to place, oriented to time, oriented to situation, CN II-XII grossly intact. ABSENT: motor sensory deficit Results Laboratory Results: 09/22/19 14:20 09/22/19 10:45 09/22/19 09/22/19 09/22/19 10:45 10:45 12:49 WBC Cancelled RBC Cancelled Hgb Cancelled Hct Cancelled MCV Cancelled MCH Cancelled MCHC Cancelled RDW Cancelled Plt Count Cancelled Seg Neutrophils % Cancelled Sodium Potassium Chloride Carbon Dioxide Anion Gap BUN Creatinine Est GFR ( Amer) Glucose Calcium Total Bilirubin AST Alkaline Phosphatase Total Protein Albumin Lipase Urine Color YELLOW Urine Appearance CLEAR Urine pH 7.0 Ur Specific Mccrory 1.015 Urine Protein 30 H Urine Glucose (UA) NEGATIVE Urine Ketones NEGATIVE Urine Blood NEGATIVE Urine Nitrite NEGATIVE Ur Leukocyte Esterase NEGATIVE Urine WBC (Auto) 1 Urine RBC (Auto) 0 09/22/19 14:20 WBC 14.1 H RBC 5.03 Hgb 14.8 Hct 43.7 MCV 87 MCH 29.4 MCHC 33.8 RDW 13.0 Plt Count 257 Seg Neutrophils % 79.6 H Sodium Potassium Chloride Carbon Dioxide Anion Gap BUN Creatinine Est GFR ( Amer) Glucose Calcium Total Bilirubin AST Alkaline Phosphatase Total Protein Albumin Lipase Urine Color Urine Appearance Urine pH Ur Specific Mccrory Urine Protein Urine Glucose (UA) Urine Ketones Urine Blood Urine Nitrite Ur Leukocyte Esterase Urine WBC (Auto) Urine RBC (Auto) Impressions: Chest X-Ray 09/22/19 10:59 IMPRESSION: NO ACUTE RADIOGRAPHIC FINDING IN THE CHEST. Head CT 09/22/19 10:59 IMPRESSION: No acute intracranial abnormality. EVIDENCE OF ACUTE STROKE: NO. Assessment and Plan - Diagnosis (1) Seizure Is this a current diagnosis for this admission?: Yes Plan: History of seizure disorder. Noncompliant due to financial reasons. Admit to telemetry, seizure, fall, aspiration precautions. IV Keppra to be transitioned to p.o. Keppra on discharge. PRN benzos. Monitor electrolytes and vitals. Outpatient PCP and neurology follow-up. Consult discharge planning for medication assistance. (2) Leukocytosis Is this a current diagnosis for this admission?: Yes Plan: No clear sign of exposure process. Chest x-ray negative. UA negative. Initial labs show severely elevated lactic acid which was found to be in lab error. Leukocytosis no bandemia likely due to seizure. Patient received empiric IV antibiotics in the ED and blood cultures obtained. No more antibiotics at this point. Follow-up cultures. If any sign of infectious process will restart antibiotics. (3) Abdominal pain Qualifiers: Abdominal location: generalized Qualified Code(s): R10.84 - Generalized abdominal pain Is this a current diagnosis for this admission?: Yes Plan: Supportive measures. (4) Headache Qualifiers: Headache type: unspecified Headache chronicity pattern: chronic headache Intractability: not intractable Qualified Code(s): R51 - Headache Is this a current diagnosis for this admission?: Yes Plan: Supportive measures. CT head negative. No focal neurological deficit. <JESSICA BANEGAS - Last Filed: 09/22/19 18:54> History of Present Illness Admission Date/PCP: 09/22/19 16:20 IGOR EMANUEL MD History of Present Illness: PEDRITO MAJOR is a 39 year old male Physical Exam Vital Signs: Temp Pulse Resp BP Pulse Ox 98.6 F 119 H 19 106/70 95 09/22/19 18:01 09/22/19 10:56 09/22/19 18:01 09/22/19 17:00 09/22/19 18:01 Intake & Output 09/21/19 09/22/19 09/23/19 06:59 06:59 06:59 Intake Total 1000 Balance 1000 Weight 75.8 kg Results Laboratory Results: 09/22/19 14:20 09/22/19 17:05 09/22/19 09/22/19 09/22/19 10:45 10:45 12:49 WBC Cancelled RBC Cancelled Hgb Cancelled Hct Cancelled MCV Cancelled MCH Cancelled MCHC Cancelled RDW Cancelled Plt Count Cancelled Seg Neutrophils % Cancelled Sodium Potassium Chloride Carbon Dioxide Anion Gap BUN Creatinine Est GFR ( Amer) Glucose Calcium Total Bilirubin AST Alkaline Phosphatase Total Protein Albumin Lipase Urine Color YELLOW Urine Appearance CLEAR Urine pH 7.0 Ur Specific Mccrory 1.015 Urine Protein 30 H Urine Glucose (UA) NEGATIVE Urine Ketones NEGATIVE Urine Blood NEGATIVE Urine Nitrite NEGATIVE Ur Leukocyte Esterase NEGATIVE Urine WBC (Auto) 1 Urine RBC (Auto) 0 09/22/19 09/22/19 09/22/19 14:20 17:05 17:05 WBC 14.1 H RBC 5.03 Hgb 14.8 Hct 43.7 MCV 87 MCH 29.4 MCHC 33.8 RDW 13.0 Plt Count 257 Seg Neutrophils % 79.6 H Sodium 137.9 Potassium 3.5 L Chloride 106 Carbon Dioxide 22 Anion Gap 10 BUN 10 Creatinine 0.92 Est GFR ( Amer) > 60 Glucose 85 Calcium 8.7 Total Bilirubin 0.9 AST 26 Alkaline Phosphatase 38 Total Protein 6.2 L Albumin 3.5 Lipase 38.9 Urine Color Urine Appearance Urine pH Ur Specific Mccrory Urine Protein Urine Glucose (UA) Urine Ketones Urine Blood Urine Nitrite Ur Leukocyte Esterase Urine WBC (Auto) Urine RBC (Auto) Impressions: Chest X-Ray 09/22/19 10:59 IMPRESSION: NO ACUTE RADIOGRAPHIC FINDING IN THE CHEST. Head CT 09/22/19 10:59
[2019-09-22] MEDS ORDERED: TEMAZEPAM 15 MG CAPSULE PO PRN (17:18)
[2019-09-22] MEDS ORDERED: ACETAMINOPHEN 325 MG TABLET PO PRN (17:18)
[2019-09-22] MEDS ORDERED: IPRATROPIUM/ALBUTEROL 0.5-2.5 MG/3 ML AMPUL NEB PRN (17:18)
[2019-09-22] MEDS ORDERED: ONDANSETRON HCL INJ/PF 4 MG/2 ML SDV IV PRN (17:18)
[2019-09-22] MEDS ORDERED: PROMETHAZINE HCL INJ 25 MG/1 ML VIAL IV PRN (17:18)
[2019-09-22] MEDS ORDERED: OXYCODONE-ACETAMINOPHEN 5-325 MG TABLET PO PRN (17:18)
[2019-09-22] MEDS ORDERED: LORAZEPAM INJ 2 MG/1 ML VIAL IV PRN (17:25)
[2019-09-22] MEDS ORDERED: KETOROLAC TROMETHAMINE INJ/PF 30 MG/1 ML SDV IV PRN (17:26)
[2019-09-22] MEDS ORDERED: HYDRALAZINE HCL INJ/PF 20 MG/1 ML SDV IV PRN (17:27)
[2019-09-22] MEDS ORDERED: METOPROLOL TARTRATE PF/INJ 5 MG/5 ML SDV IV PRN (17:27)
[2019-09-22 17:46] LABS: ALBUMIN 3.5 g/dL (3.5-5.0); ALKALINE PHOSPHATASE 38 U/L (38-126); ASPARTATE AMINO TRANSFERASE 26 U/L (17-59); BILIRUBIN,DIRECT 0.1 mg/dL (0.0-0.4); BILIRUBIN,TOTAL 0.9 mg/dL (0.2-1.3); TOTAL PROTEIN 6.2 g/dL (6.3-8.2)
[2019-09-22 17:48] LABS: ANION GAP 10 (5-19); BLOOD UREA NITROGEN 10 mg/dL (7-20); CALCIUM 8.7 mg/dL (8.4-10.2); CARBON DIOXIDE 22 mmol/L (22-30); CHLORIDE 106 mmol/L (98-107); GLUCOSE 85 mg/dL (75-110); POTASSIUM 3.5 mmol/L (3.6-5.0)
[2019-09-22 17:57] LABS: ALCOHOL < 10 mg/dL (NONE DETECTED)
[2019-09-22] MEDS: LEVETIRACETAM 500 MG TABLET PO SCH (22:47)
[2019-09-23] MEDS ORDERED: INFLUENZA QUAD (6MOS+) 2019-20 VAC 0.5 ML SYR IM ONE (00:38)
[2019-09-23 04:56] LABS: ABSOLUTE BASOPHILS # (AUTO) 0.1 10^3/uL (0.0-0.2); ABSOLUTE LYMPHOCYTES (AUTO) 1.9 10^3/uL (0.5-4.7); ABSOLUTE MONOCYTES (AUTO) 0.9 10^3/uL (0.1-1.4); ABSOLUTE NEUT (AUTO) 7.4 10^3/uL (1.7-8.2); BASOPHILS % (AUTO) 0.6 % (0-2); HEMATOCRIT 45.1 % (37.9-51.0); HEMOGLOBIN 15.2 g/dL (13.5-17.0); LYMPHOCYTES % (AUTO) 18.7 % (13-45); MEAN CORPUSCULAR HEMOGLOBIN 29.3 pg (27.0-33.4); MEAN CORPUSCULAR HGB CONC 33.7 g/dL (32.0-36.0); MEAN CORPUSCULAR VOLUME 87 fl (80-97); MONOCYTES % (AUTO) 9.2 % (3-13); PLATELET COUNT 252 10^3/uL (150-450); RED BLOOD COUNT 5.18 10^6/uL (4.35-5.55); SEGMENTED NEUTROPHILS % (AUTO) 71.5 % (42-78); TOTAL CELLS COUNTED % (AUTO) 100 %; WHITE BLOOD COUNT 10.3 10^3/uL (4.0-10.5)
[2019-09-23 05:13] LABS: ANION GAP 8 (5-19); BLOOD UREA NITROGEN 9 mg/dL (7-20); CALCIUM 9.1 mg/dL (8.4-10.2); CARBON DIOXIDE 25 mmol/L (22-30); CHLORIDE 108 mmol/L (98-107); GLUCOSE 82 mg/dL (75-110)
[2019-09-23] MEDS ORDERED: PANTOPRAZOLE SODIUM 40 MG TABLET.DR PO SCH (06:00)
[2019-09-23 06:10] VITALS: BP 117/59
[2019-09-23] MEDS ORDERED: ENOXAPARIN SODIUM INJ 40 MG/0.4 ML DISP.SYRIN SUBCUT SCH (10:00)
[2019-09-23] MEDS: LEVETIRACETAM 500 MG TABLET PO SCH (10:13)
--- NOTE | 2019-09-23 14:51 | EKG REPORT ---
SEVERITY:- ABNORMAL ECG - SINUS TACHYCARDIA PROBABLE LEFT ATRIAL ABNORMALITY PROBABLE LEFT VENTRICULAR HYPERTROPHY : Confirmed by: Brenden Molina MD 23-Sep-2019 14:49:52
--- NOTE | 2019-09-23 15:01 | Left Against Medical Advice ---
Against Medical Advice Admission Date/Time: 09/22/19 16:20 Primary Care Provider: IGOR EMANUEL MD Date of Patient Emigration: 09/23/19 - Diagnosis: (1) Seizure Is this a current diagnosis for this admission?: Yes (2) Leukocytosis Is this a current diagnosis for this admission?: Yes (3) Abdominal pain Is this a current diagnosis for this admission?: Yes (4) Headache Is this a current diagnosis for this admission?: Yes - Summary: Summary: Please see Admission and Progress Notes as well. PEDRITO MAJOR is a 39 M, who LEFT AGAINST MEDICAL ADVICE. The Patient was admitted on 09/22/19 16:20. PEDRITO MAJOR is a 39 year old male past medical history of seizure disorder noncompliant due to financial reasons, status post lung biopsy on 09/21/2019 for lung mass here at [facility], was brought to ED by EMS because of headache, general abdominal pain, nausea vomiting and substernal chest pain at the site of lung biopsy done here at [facility] on 09/21/2019. In route to ED patient had a witnessed generalized tonic-clonic seizure. Initial labs showed extremely elevated lactic acid and prolactin level and patient was started on empiric IV antibiotics, IV Keppra and volume resuscitation. However it was later found out that the initial lab results were errors. On my encounter patient is sleeping comfortably, easily arousable oriented x3, denies any chest pain, shortness of breath, nausea, vomiting, weakness however stating that he feels very tired and prefer to rest at this time. (1) Seizure History of seizure disorder. Noncompliant due to financial reasons. Was admitted to and seizure, fall, aspiration precautions implemented. Was a started on IV Keppra and transitioned to p.o. Keppra on discharge. PRN benzos. Monitored electrolytes and vitals. Monitored electrolytes and vitals. Patient did not have any recurrence of his seizure while being in the hospital. This morning he decided to leave AMA. Patient was advised to wait to talk to social workers to see if they could provide head with social needs and medications but he adamantly refused and wanted to leave AMA. Please refer to discharge planning note. Patient alert and oriented x4, denied any any headache, nausea, vomiting, diarrhea, constipation or any urinary symptoms. Neurologically intact. Denied any numbness tingling, vision changes or any focal neurologic deficit. Patient was advised to not drive or operate IV heavy machinery and he stated that he is not working and is not driving at the moment. Stated that he has not driven for the last 15 years. He was provided prescription for Keppra 1000 mg p.o. twice daily. He was advised on medication adherence to avoid future seizures. (2) Leukocytosis Resolved. No clear sign of exposure process. Chest x-ray negative. UA negative. Initial labs show severely elevated lactic acid which was found to be in lab error. Repeat labs all WNL. Leukocytosis no bandemia likely due to seizure. Patient received empiric IV antibiotics in the ED and blood cultures obtained. Cultures negative at the time of dictation. (3) Abdominal pain Resolved. Supportive measures. (4) Headache Resolved. CT head negative. No focal neurological deficit.
== END 2019-09-23 10:30 | disposition left against medical advice (07) ==
LOC: ER 10:39 → EH 16:20 → INTOOBSV 16:20 → 3N 18:36
PROVIDERS: ADMIT Internal Medicine; ATTEND Internal Medicine
DX: G40.909 Epilepsy, unspecified, not intractable, without status epilepticus (principal); D72.829 Elevated white blood cell count, unspecified; R10.84 Generalized abdominal pain; R51 Headache; R00.0 Tachycardia, unspecified; R11.2 Nausea with vomiting, unspecified; R07.2 Precordial pain; R06.02 Shortness of breath; Z98.890 Other specified postprocedural states; R74.0 Nonspecific elevation of levels of transaminase and lactic acid dehydrogenase [LDH]; E22.1 Hyperprolactinemia; F17.200 Nicotine dependence, unspecified, uncomplicated; Z91.14 Patient's other noncompliance with medication regimen; Z59.8 Other problems related to housing and economic circumstances
CPT/HCPCS: 93005; 99291; 96361; 96365; 96368; 36415 ×2; 87040; 82962; 80307 ×2; 83690; 83735; 85025 ×2; 87070; 80048; 81001; 84146; 83605; 71045; 70450; 93010; 97161; G0378 ×3; J2550; J7030; J7120; J1953; J2543; J3490; 80053

== ENCOUNTER 2020-01-09 10:54 | Emergency (ER) | payer OTHER ==
[2020-01-09 11:17] LABS: ABSOLUTE BASOPHILS # (AUTO) 0.1 10^3/uL (0.0-0.2); ABSOLUTE LYMPHOCYTES (AUTO) 2.6 10^3/uL (0.5-4.7); ABSOLUTE MONOCYTES (AUTO) 1.5 10^3/uL (0.1-1.4); ABSOLUTE NEUT (AUTO) 10.5 10^3/uL (1.7-8.2); BASOPHILS % (AUTO) 0.5 % (0-2); HEMOGLOBIN 17.1 g/dL (13.5-17.0); LYMPHOCYTES % (AUTO) 17.6 % (13-45); MEAN CORPUSCULAR HEMOGLOBIN 29.3 pg (27.0-33.4); MEAN CORPUSCULAR HGB CONC 33.6 g/dL (32.0-36.0); MEAN CORPUSCULAR VOLUME 87 fl (80-97); MONOCYTES % (AUTO) 10.1 % (3-13); PLATELET COUNT 291 10^3/uL (150-450); RED BLOOD COUNT 5.84 10^6/uL (4.35-5.55); RED CELL DISTRIBUTION WIDTH 13.1 % (11.5-14.0); SEGMENTED NEUTROPHILS % (AUTO) 71.8 % (42-78); TOTAL CELLS COUNTED % (AUTO) 100 %; WHITE BLOOD COUNT 14.6 10^3/uL (4.0-10.5)
[2020-01-09] MEDS ORDERED: LEVETIRACETAM 500 MG TABLET PO ONE (11:23)
--- NOTE | 2020-01-09 11:27 | ER Document Report ---
ED Cardiac - General Chief Complaint: Chest Pain Stated Complaint: POSSIBLE SEIZURE/CHEST PAIN Time Seen by Provider: 01/09/20 11:14 Primary Care Provider: IGOR EMANUEL MD [HONORARY] - Follow up as needed Information source: Patient TRAVEL OUTSIDE OF THE [place] IN LAST 30 DAYS: No - HPI Notes: Patient presents stating that he had several seizures this morning. He states he has a known seizure disorder. He states that he is not currently taking any type of seizure medication and has not taken any for months because he cannot afford it. He states he was recently diagnosed with a thymoma. He states that tomorrow he is going to see a neurologist to see if he has myasthenia and to get further instructions on how to have the thymoma treated. He states this morning while lying in bed he had several tonic-clonic seizures. He states currently his eyes are sensitive to light and he has some chest tightness. This tightness is constant and mild to moderate. It radiates across his chest. Nothing makes it better or worse. He states that this tightness is been ongoing now for several months secondary to the thymoma. He denies any type of fevers cough congestion. No URI symptoms. No known exposure to coronavirus. No vomiting or diarrhea. - Related Data Allergies/Adverse Reactions: banana Allergy (Verified 01/09/20 12:04) cat dander Allergy (Verified 09/21/19 09:04) Past Medical History - General Information source: Patient - Social History Smoking Status: Current Every Day Smoker Frequency of alcohol use: States he has 2 glasses of vodka per day Drug Abuse: Marijuana Family History: Reviewed & Not Pertinent - Past Medical History Cardiac Medical History: Denies: Hx Coronary Artery Disease, Hx Heart Attack, Hx Hypertension Pulmonary Medical History: Denies: Hx Asthma, Hx Bronchitis, Hx COPD, Hx Pneumonia Neurological Medical History: 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 Denies: Hx Cerebrovascular Accident Renal/ Medical History: Denies: Hx Peritoneal Dialysis Musculoskeletal Medical History: Denies Hx Arthritis Psychiatric Medical History: Reports: Hx Anxiety, Hx Depression - Immunizations Immunizations up to date: Yes Hx Diphtheria, Pertussis, Tetanus Vaccination: Yes Review of Systems - Review of Systems Constitutional: denies: Chills, Fever Cardiovascular: Chest pain. denies: Palpitations Respiratory: denies: Cough, Short of breath -: Yes All other systems reviewed and negative Physical Exam - Vital signs Vitals: Resp Pulse Ox 11 L 98 01/09/20 10:59 01/09/20 10:59 Interpretation: Normal - General General appearance: Appears well, Alert - HEENT Head: Normocephalic, Atraumatic Eyes: Normal Pupils: PERRL - Respiratory Respiratory status: No respiratory distress Chest status: Nontender Breath sounds: Normal Chest palpation: Normal - Cardiovascular Rhythm: Regular Heart sounds: Normal auscultation Murmur: No - Abdominal Inspection: Normal Distension: No distension Bowel sounds: Normal Tenderness: Nontender Organomegaly: No organomegaly - Back Back: Normal, Nontender - Extremities General upper extremity: Normal inspection, Nontender, Normal color, Normal ROM, Normal temperature General lower extremity: Normal inspection, Nontender, Normal color, Normal ROM, Normal temperature, Normal weight bearing. No: Lashaun's sign - Neurological Neuro grossly intact: Yes Cognition: Normal Orientation: AAOx4 [place] Coma Scale Eye Opening: Spontaneous [place] Coma Scale Verbal: Oriented [place] Coma Scale Motor: Obeys Commands [place] Coma Scale Total: 15 Speech: Normal Motor strength normal: LUE, RUE, LLE, RLE Sensory: Normal - Psychological Associated symptoms: Normal affect, Normal mood - Skin Skin Temperature: Warm Skin Moisture: Dry Skin Color: Normal Course - Re-evaluation Re-evalutation: 01/09/20 13:04 Patient presents after a seizure at home. Patient has a known seizure disorder. He has not taken any epileptic medication because of cost. Therefore, I will discharge the patient with a prescription for Keppra as well as a good Rx card. - Vital Signs Vital signs: Temp Pulse Resp BP Pulse Ox 98.5 F 17 134/97 H 98 01/09/20 11:00 01/09/20 12:03 01/09/20 12:03 01/09/20 12:03 - Laboratory Result Diagrams: 01/09/20 11:02 01/09/20 11:02 Laboratory results interpreted by me: 01/09/20 01/09/20 11:02 11:02 WBC 14.6 H RBC 5.84 H Hgb 17.1 H Absolute Neuts (auto) 10.5 H Absolute Monos (auto) 1.5 H Magnesium 2.4 H - Diagnostic Test Radiology reviewed: Image reviewed, Reports reviewed - EKG Interpretation by Me EKG shows normal: Sinus rhythm Rate: Normal - 67 Rhythm: NSR [place]/QRS: No: Right axis deviation, Left axis deviation Discharge - Discharge Clinical Impression: Seizure Condition: Stable Disposition: HOME, SELF-CARE Additional Instructions: Please follow-up tomorrow with neurology as scheduled. Please call pharmacies with your good Rx card or use the website to find the cheapest place to obtain your Keppra. It is very important that you take the Keppra so that you do not have further seizures. Please do not drive until you are cleared by neurology. Prescriptions: Levetiracetam [Keppra 500 mg Tablet] 500 mg PO Q12 #60 tablet Referrals: IGOR EMANUEL MD [HONORARY] - Follow up as needed
[2020-01-09 11:33] LABS: ALBUMIN 4.4 g/dL (3.5-5.0); ALKALINE PHOSPHATASE 47 U/L (38-126); ANION GAP 10 (5-19); ASPARTATE AMINO TRANSFERASE 45 U/L (17-59); BILIRUBIN,TOTAL 1.3 mg/dL (0.2-1.3); BLOOD UREA NITROGEN 14 mg/dL (7-20); CALCIUM 9.6 mg/dL (8.4-10.2); CARBON DIOXIDE 23 mmol/L (22-30); CHLORIDE 104 mmol/L (98-107); GLUCOSE 93 mg/dL (75-110); POTASSIUM 4.2 mmol/L (3.6-5.0); TOTAL PROTEIN 7.7 g/dL (6.3-8.2)
[2020-01-09 11:48] LABS: ALCOHOL < 10 mg/dL (NONE DETECTED)
--- NOTE | 2020-01-09 12:11 | RADIOLOGY REPORT (SQ) ---
EXAM DESCRIPTION: CHEST SINGLE VIEW IMAGES COMPLETED DATE/TIME: 01/09/2020 11:42 am REASON FOR STUDY: chest pain COMPARISON: 09/22/2019 EXAM PARAMETERS: NUMBER OF VIEWS: One view. TECHNIQUE: Single frontal radiographic view of the chest acquired. RADIATION DOSE: NA LIMITATIONS: None. FINDINGS: LUNGS AND PLEURA: No opacities, masses or pneumothorax. No pleural effusion. MEDIASTINUM AND HILAR STRUCTURES: No masses. Contour normal. HEART AND VASCULAR STRUCTURES: Heart normal in size. Normal vasculature. BONES: No acute findings. HARDWARE: None in the chest. OTHER: No other significant finding. IMPRESSION: NO ACUTE RADIOGRAPHIC FINDING IN THE CHEST. TECHNICAL DOCUMENTATION: JOB ID: [id number] 2010 [employer]- All Rights Reserved Reading location - IP/workstation name: [email or web address]
[2020-01-09 12:19] LABS: APPEARANCE,URINE CLEAR; BILIRUBIN,URINE NEGATIVE (NEGATIVE); COLOR,URINE STRAW; GLUCOSE, URINE NEGATIVE (NEGATIVE); KETONES,URINE NEGATIVE (NEGATIVE); LEUKOCYTE ESTERASE,URINE NEGATIVE (NEGATIVE); NITRITE,URINE NEGATIVE (NEGATIVE); PROTEIN,URINE NEGATIVE (NEGATIVE); URINE SPECIFIC GRAVITY 1.005; UROBILINOGEN,URINE NEGATIVE mg/dL (<2.0)
[2020-01-09 12:33] LABS: URINE AMPHETAMINES SCREEN NEGATIVE; URINE BARBITURATES SCREEN NEGATIVE; URINE BENZODIAZEPINES SCREEN NEGATIVE; URINE COCAINE SCREEN NEGATIVE; URINE METHADONE SCREEN NEGATIVE; URINE PHENCYCLIDINE SCREEN NEGATIVE
[2020-01-09 12:36] LABS: URINE MARIJUANA (THC) SCREEN UNCONFIRMED POSITIVE
[2020-01-09 14:28] VITALS: BP 115/85
--- NOTE | 2020-01-09 16:21 | EKG REPORT ---
SEVERITY:- NORMAL ECG - SINUS RHYTHM : Confirmed by: Charleen Burns 09-Jan-2020 16:20:39
== END 2020-01-09 13:45 | disposition home or self-care (01) ==
LOC: ER 10:54
DX: G40.909 Epilepsy, unspecified, not intractable, without status epilepticus (principal); T50.906A Underdosing of unspecified drugs, medicaments and biological substances, initial encounter; Z91.120 Patient's intentional underdosing of medication regimen due to financial hardship; Z91.14 Patient's other noncompliance with medication regimen; H53.149 Visual discomfort, unspecified; D15.0 Benign neoplasm of thymus; R07.89 Other chest pain; F17.200 Nicotine dependence, unspecified, uncomplicated; F12.10 Cannabis abuse, uncomplicated; Z91.018 Allergy to other foods; Z91.048 Other nonmedicinal substance allergy status
CPT/HCPCS: 36415; 71045; 80053; 80307; 81001; 83735; 85025; 93005; 93010; 99284

== ENCOUNTER → 2020-01-12 | Outpatient (CLI) | payer OTHER ==
--- NOTE | 2020-01-12 16:52 | RADIOLOGY REPORT (SQ) ---
EXAM DESCRIPTION: MRI HEAD WITHOUT IMAGES COMPLETED DATE/TIME: 01/12/2020 2:34 pm REASON FOR STUDY: R51 HEADACHE R51 HEADACHE COMPARISON: CT 09/22/2019 TECHNIQUE: Multiplanar imaging includes non-contrasted T1, T2, FLAIR, and diffusion with ADC map seq uences. Images stored on PACS. LIMITATIONS: None. FINDINGS: ANATOMY: No anomalies. Normal vascular flow voids. Pituitary fossa normal. CSF SPACES: Normal in size and contour. No hemorrhage. CEREBRUM: Sulci and gyri normal in size and contour. Normal white matter signal on FLAIR imaging. No evidence of hemorrhage, mass, or extraaxial fluid collection. POSTERIOR FOSSA: No signal alteration. No hemorrhage. No edema, masses or mass effect. Internal berlin tory canals, cerebello-pontine angles, mastoids normal. DIFFUSION IMAGING: Negative for acute or sub-acute infarction. ORBITS: No masses. Globes normal. PARANASAL SINUSES: There is a 21 x 22 x 21 mm mass in the left sphenoid sinus. OTHER: No other significant finding. IMPRESSION: Left sphenoid mass that can be seen on a CT from 10/01/2017. No significant change. No acute intracranial imaging findings. EVIDENCE OF ACUTE STROKE: NO. TECHNICAL DOCUMENTATION: JOB ID: [id number] 2010 [employer]- All Rights Reserved Reading location - IP/workstation name: [email or web address]
== END ==
LOC: RAD 13:46
PROVIDERS: ATTEND Internal Medicine
DX: R51 Headache (principal); J32.3 Chronic sphenoidal sinusitis
CPT/HCPCS: 70551

== ENCOUNTER 2020-03-27 12:16 | Emergency (ER) | payer MEDICAID, OTHER ==
[2020-03-27 14:43] LABS: ABSOLUTE BASOPHILS # (AUTO) 0.1 10^3/uL (0.0-0.2); ABSOLUTE LYMPHOCYTES (AUTO) 2.8 10^3/uL (0.5-4.7); ABSOLUTE MONOCYTES (AUTO) 0.8 10^3/uL (0.1-1.4); ABSOLUTE NEUT (AUTO) 7.7 10^3/uL (1.7-8.2); BASOPHILS % (AUTO) 0.4 % (0-2); HEMATOCRIT 51.6 % (37.9-51.0); HEMOGLOBIN 17.3 g/dL (13.5-17.0); LYMPHOCYTES % (AUTO) 25.1 % (13-45); MEAN CORPUSCULAR HEMOGLOBIN 30.2 pg (27.0-33.4); MEAN CORPUSCULAR HGB CONC 33.6 g/dL (32.0-36.0); MEAN CORPUSCULAR VOLUME 90 fl (80-97); MONOCYTES % (AUTO) 6.8 % (3-13); PLATELET COUNT 256 10^3/uL (150-450); RED BLOOD COUNT 5.74 10^6/uL (4.35-5.55); RED CELL DISTRIBUTION WIDTH 13.4 % (11.5-14.0); SEGMENTED NEUTROPHILS % (AUTO) 67.7 % (42-78); TOTAL CELLS COUNTED % (AUTO) 100 %; WHITE BLOOD COUNT 11.3 10^3/uL (4.0-10.5)
[2020-03-27 14:49] LABS: APPEARANCE,URINE CLEAR; BILIRUBIN,URINE NEGATIVE (NEGATIVE); COLOR,URINE YELLOW; GLUCOSE, URINE NEGATIVE (NEGATIVE); KETONES,URINE TRACE mg/dL (NEGATIVE); LEUKOCYTE ESTERASE,URINE NEGATIVE (NEGATIVE); NITRITE,URINE NEGATIVE (NEGATIVE); PROTEIN,URINE 30 mg/dL (NEGATIVE); URINE SPECIFIC GRAVITY 1.021
[2020-03-27 15:02] LABS: ALBUMIN 4.3 g/dL (3.5-5.0); ALKALINE PHOSPHATASE 39 U/L (38-126); ANION GAP 6 (5-19); ASPARTATE AMINO TRANSFERASE 30 U/L (17-59); BILIRUBIN,TOTAL 1.5 mg/dL (0.2-1.3); BLOOD UREA NITROGEN 9 mg/dL (7-20); CALCIUM 9.6 mg/dL (8.4-10.2); CARBON DIOXIDE 28 mmol/L (22-30); CHLORIDE 102 mmol/L (98-107); GLUCOSE 88 mg/dL (75-110); POTASSIUM 4.4 mmol/L (3.6-5.0); TOTAL PROTEIN 7.2 g/dL (6.3-8.2)
[2020-03-27 15:03] LABS: URINE AMPHETAMINES SCREEN NEGATIVE; URINE BARBITURATES SCREEN NEGATIVE; URINE COCAINE SCREEN NEGATIVE; URINE METHADONE SCREEN NEGATIVE; URINE PHENCYCLIDINE SCREEN NEGATIVE
[2020-03-27 15:04] LABS: ALCOHOL < 10 mg/dL (NONE DETECTED); URINE BENZODIAZEPINES SCREEN UNCONFIRMED POSITIVE; URINE MARIJUANA (THC) SCREEN UNCONFIRMED POSITIVE
[2020-03-27] MEDS ORDERED: LEVETIRACETAM 1000 MG/NACL-ISO 1,000 MG/100 ML RTUPB IV ONE (15:30)
--- NOTE | 2020-03-27 15:30 | ER Document Report ---
ED General - General Chief Complaint: Seizure Stated Complaint: POSSIBLE SEIZURE Time Seen by Provider: 03/27/20 14:56 Primary Care Provider: [facility] [Primary Care Provider] - Follow up as needed Mode of Arrival: Medic Information source: Patient TRAVEL OUTSIDE OF THE [place] IN LAST 30 DAYS: No - HPI Onset: Just prior to arrival Onset/Duration: Sudden Quality of pain: Achy Severity: Moderate Pain Level: 1 Associated symptoms: Weakness Exacerbated by: Denies Relieved by: Denies Similar symptoms previously: Yes - multiple times in recent past. Patient says has multiple seizures a month Recently seen / treated by doctor: Yes - micah seen in this ER in December 2019 for the same Notes: 39 year old male with a history of a Thymoma and Brain mass who has been lost to follow up due to financial reasons brought to the ER for evaluation after having a seizure in public. The patient was last seen for seizures at his ER in December 2019 and he was prescribed Keppra 500mg BID then which he tells me he has not been taking as prescribed. The patient does not remember much from the seizure today but he says he feels like he usually does after he has a seizure. The p atient was given 5mg of Versed by EMS prior to ER arrival. The patient says he has a PCP at the [facility] but no specialist follow up care scheduled since he has financial issues. - Related Data Allergies/Adverse Reactions: banana Allergy (Verified 01/09/20 12:04) cat dander Allergy (Verified 09/21/19 09:04) Past Medical History - General Information source: Patient - Social History Smoking Status: Current Every Day Smoker Chew tobacco use (# tins/day): No Frequency of alcohol use: Daily 20oz Drug Abuse: Marijuana, Other Family History: Reviewed & Not Pertinent Patient has homicidal ideation: No - Past Medical History Cardiac Medical History: Denies: Hx Coronary Artery Disease, Hx Heart Attack, Hx Hypertension Pulmonary Medical History: Denies: Hx Asthma, Hx Bronchitis, Hx COPD, Hx Pneumonia Neurological Medical History: 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 Denies: Hx Cerebrovascular Accident Renal/ Medical History: Denies: Hx Peritoneal Dialysis Musculoskeletal Medical History: Denies Hx Arthritis Psychiatric Medical History: Reports: Hx Anxiety, Hx Depression - Immunizations Immunizations up to date: Yes Hx Diphtheria, Pertussis, Tetanus Vaccination: Yes Review of Systems - Review of Systems Constitutional: No symptoms reported EENT: No symptoms reported Cardiovascular: No symptoms reported Respiratory: No symptoms reported Gastrointestinal: No symptoms reported Genitourinary: No symptoms reported Male Genitourinary: No symptoms reported Musculoskeletal: No symptoms reported Skin: No symptoms reported Hematologic/Lymphatic: No symptoms reported Neurological/Psychological: Confusion, Seizure -: Yes All other systems reviewed and negative Physical Exam - Vital signs Vitals: Temp 98.2 F 03/27/20 12:17 - Notes Notes: GENERAL: Well-appearing, well-nourished and in no acute distress. HEAD: Atraumatic, normocephalic. EYES: Pupils equal round and reactive to light, extraocular movements intact, sclera anicteric, conjunctiva are normal. ENT: External ears normal, nares patent, oropharynx clear without exudates. Moist mucous membranes. NECK: Normal range of motion, supple without lymphadenopathy or JVD. LUNGS: Breath sounds clear to auscultation bilaterally and equal. No wheezes rales or rhonchi. HEART: Regular rate and rhythm without murmurs, rubs or gallops. ABDOMEN: Soft, nontender, normoactive bowel sounds. No guarding, no rebound. No masses appreciated. EXTREMITIES: Normal range of motion, no pitting or edema. No clubbing or cyanosis. NEUROLOGICAL: Cranial nerves II through XII grossly intact. Normal speech, normal gait. PSYCH: Normal mood, normal affect. SKIN: Warm, Dry, normal turgor, no rashes or lesions noted. Course - Re-evaluation Re-evalutation: 03/27/20 15:51 The patient has a history of brain mass and apparently a Thymoma. The patient has financial issues which is causing him to not take his medications or be able to follow up with appropriate care. The patient was told he needs to find a way to take Keppra 500mg BID as is a cheap medication and there are discounts available online. Social Work/Case Management was consulted since the patient says he has applied for every social program he knows of and has been turned down. 03/28/20 05:21 The patient eloped prior to being given his discharge paperwork but after case management had spoken with him. The patient has seizures and will continue to have seizures since he does not sound like he is taking Keppra and he has brain mass which is not being treated at present. - Vital Signs Vital signs: Temp Pulse Resp BP Pulse Ox 98.2 F 18 133/82 H 98 03/27/20 12:22 03/27/20 17:01 03/27/20 15:01 03/27/20 17:01 - Laboratory Result Diagrams: 03/27/20 14:30 03/27/20 14:30 Laboratory results interpreted by me: 03/27/20 03/27/20 03/27/20 14:30 14:30 14:30 WBC 11.3 H RBC 5.74 H Hgb 17.3 H Hct 51.6 H Sodium 135.6 L Total Bilirubin 1.5 H Urine Protein 30 H Urine Ketones TRACE H Urine Urobilinogen 4.0 H - EKG Interpretation by Me EKG shows normal: Sinus rhythm, Odell, Intervals, QRS Complexes, ST-T Waves Rate: Normal Rhythm: NSR Discharge - Discharge Clinical Impression: Seizure Condition: Stable Disposition: ELOPED Instructions: Seizure, Known Epileptic ([facility]) Additional Instructions: Take your previously prescribed Keppra to prevent seizures. Follow up with a primary care doctor, Oncologist, and Neurologist. Referrals: [facility] [Primary Care Provider] - Follow up as needed
[2020-03-27 16:15] VITALS: BP 133/82
--- NOTE | 2020-03-27 18:33 | EKG REPORT ---
SEVERITY:- ABNORMAL ECG - SINUS RHYTHM PROBABLE LEFT ATRIAL ABNORMALITY BORDERLINE T ABNORMALITIES, ANTERIOR LEADS ST ELEVATION SUGGESTS NORMAL VARIANT : Confirmed by: Brenden Molina MD 27-Mar-2020 18:32:36
== END 2020-03-27 18:42 | disposition left against medical advice (07) ==
LOC: ER 12:16
DX: R56.9 Unspecified convulsions (principal); T42.6X6A Underdosing of other antiepileptic and sedative-hypnotic drugs, initial encounter; Z91.120 Patient's intentional underdosing of medication regimen due to financial hardship; Z91.14 Patient's other noncompliance with medication regimen; G93.9 Disorder of brain, unspecified; F12.10 Cannabis abuse, uncomplicated; F17.200 Nicotine dependence, unspecified, uncomplicated; Z86.39 Personal history of other endocrine, nutritional and metabolic disease; Z91.018 Allergy to other foods; Z91.048 Other nonmedicinal substance allergy status
CPT/HCPCS: 93005; 99284; 96365; 36415; 82962; 80307 ×2; 83735; 85025; 80053; 81001; 93010; J1953

== ENCOUNTER 2020-04-22 19:53 | Emergency (ER) | payer SELFPAY ==
[2020-04-22] MEDS ORDERED: LORAZEPAM INJ 2 MG/1 ML VIAL IV ONE (20:01)
[2020-04-22] MEDS ORDERED: NORMAL SALINE 1000 ML 1,000 ML IV ONE (20:08)
[2020-04-22 20:19] LABS: ABSOLUTE BASOPHILS # (AUTO) 0.1 10^3/uL (0.0-0.2); ABSOLUTE LYMPHOCYTES (AUTO) 4.5 10^3/uL (0.5-4.7); ABSOLUTE MONOCYTES (AUTO) 0.9 10^3/uL (0.1-1.4); ABSOLUTE NEUT (AUTO) 7.9 10^3/uL (1.7-8.2); BASOPHILS % (AUTO) 0.7 % (0-2); HEMATOCRIT 52.2 % (37.9-51.0); HEMOGLOBIN 17.3 g/dL (13.5-17.0); LYMPHOCYTES % (AUTO) 33.4 % (13-45); MEAN CORPUSCULAR HEMOGLOBIN 30.2 pg (27.0-33.4); MEAN CORPUSCULAR HGB CONC 33.1 g/dL (32.0-36.0); MEAN CORPUSCULAR VOLUME 91 fl (80-97); MONOCYTES % (AUTO) 6.9 % (3-13); PLATELET COUNT 337 10^3/uL (150-450); RED BLOOD COUNT 5.72 10^6/uL (4.35-5.55); RED CELL DISTRIBUTION WIDTH 12.9 % (11.5-14.0); TOTAL CELLS COUNTED % (AUTO) 100 %; WHITE BLOOD COUNT 13.3 10^3/uL (4.0-10.5)
--- NOTE | 2020-04-22 20:21 | ER Document Report ---
ED General - General Stated Complaint: SEIZURE Time Seen by Provider: 04/22/20 20:02 Primary Care Provider: [facility] [Primary Care Provider] - Follow up as needed TRAVEL OUTSIDE OF THE [place] IN LAST 30 DAYS: No - HPI Notes: Patient is a 39-year-old male who presents to the emergency department for evaluation after an alleged seizure. He states his been taking his medications as prescribed. He really cannot give me any information other than he believes he had a seizure today. He denies biting his tongue. He states he also had a seizure the other day which was near some bushes, he states he scratched up his legs and arms. He states he has been taking his Keppra as prescribed. He denies any recent known head traumas. Also patient states he has been having abdominal pain this been going on for the last 3 or 4 days. He said some nausea but no emesis. He had a normal bowel movement 2 days ago. He states he really has not been eating or drinking much. - Related Data Allergies/Adverse Reactions: banana Allergy (Verified 04/22/20 20:57) cat dander Allergy (Verified 04/22/20 20:57) Home Medications: Keppra 500 mg twice daily Past Medical History - General Information source: Patient - Social History Smoking Status: Current Every Day Smoker Drug Abuse: None Family History: Reviewed & Not Pertinent - Medical History Medical History: Other - Thymoma per patient - Past Medical History Cardiac Medical History: Denies: Hx Coronary Artery Disease, Hx Heart Attack, Hx Hypertension Pulmonary Medical History: Denies: Hx Asthma, Hx Bronchitis, Hx COPD, Hx Pneumonia Neurological Medical History: 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 Denies: Hx Cerebrovascular Accident Renal/ Medical History: Denies: Hx Peritoneal Dialysis Musculoskeletal Medical History: Denies Hx Arthritis Psychiatric Medical History: Reports: Hx Anxiety, Hx Depression - Immunizations Immunizations up to date: Yes Hx Diphtheria, Pertussis, Tetanus Vaccination: Yes Review of Systems - Review of Systems Skin: No symptoms reported Neurological/Psychological: See HPI -: Yes All other systems reviewed and negative Physical Exam - Vital signs Vitals: Resp Pulse Ox 16 97 04/22/20 20:00 04/22/20 20:00 - Notes Notes: This is a 39-year-old gentleman who appears his stated age in no acute distress. He is drowsy but awakes easily with verbal stimuli, GCS 14. Vital signs reviewed, please refer to chart. Head is normocephalic, atraumatic. Pupils equal round, reactive to light. Neck is supple without meningismus. Heart is regular rate and rhythm. Lungs are clear to auscultation bilaterally. Abdomen is soft, tender in the left upper quadrant and left lower quadrant without rebound or guarding, normoactive bowel sounds throughout. Negative heeltap. Extremities without cyanosis, clubbing. Posterior calves are nontender. P eripheral pulses are equal. Skin is warm and dry. He has linear lacerations noted to the left forearm and the abdomen. They are in various stages of healing. To this clinician they do appear that they may be self-inflicted. Patient is drowsy but awakes easily to verbal stimuli. Patient is oriented x3. Cranial nerves II - XII are grossly intact without focal neurological deficits. Strength is plus 5 out of 5 bilateral upper and lower extremities. Sensation is intact. Reflexes symmetrical. Intact [id number], rapid alternating movements, [id number]. Please note that on subsequent examinations the patient was extremely anxious in appearance but cooperative with examiner. Course - Re-evaluation Re-evalutation: 04/22/20 20:34 Patient presents to the emergency department for evaluation. I was initially called into the room by nursing, who stated they were concerned the patient was having a seizure. I placed an order for Ativan 2 mg IV and went to evaluate the patient. When I walked in the room, the patient was not showing any signs of seizure activity. I spoke his name and he easily opened his eyes. He has no slurring of the speech, no slurring of the speech, no confusion other than stating he does not remember what happened, no bite trauma to the tongue, no drooling, and no incontinence. He does have a history of pseudoseizures and some drug-seeking behavior per [facility] history. Based on my assessment at this point, I do not suspect that the patient had a significant seizure. The patient states that he sustained the wounds on his abdomen and left arm from falling. His abdomen is tender. I will go ahead and order a CT scan of the abdomen and pelvis. We will update his tetanus if needed. Otherwise we will give IV fluids for any resultant acidosis as a result of any seizure activity prior to arrival. Patient is currently stable, we will continue to monitor. 04/22/20 21:02 Patient's laboratory investigations are consistent with having had a seizure. His bicarb is low. His lipase is elevated as well. I suspect this is simply from trauma of flexing and seizure recently. His CT scan shows possible colitis, but this is a very thin young man with absolutely no bowel symptoms. He did not have oral contrast. I do not have a strong suspicion for colitis, but do believe he should follow-up with gastroenterology and primary care for further evaluation. Will give IV fluids. Awaiting urinalysis and drug screen, but patient has a known seizure disorder. He states he has been taking his medication. I will have him follow-up closely with primary care. 04/22/20 21:29 Patient's drug screen continues to be positive for marijuana. Otherwise no significant abnormalities noted. Again his CT shows possible colitis, but I do not suspect he has a significant colitis given the fact that he is having normal bowel movements. He does have some abdominal pain, but I think he needs follow- up with gastroenterology more than anything else. He had a modest elevation in his lipase, but I suspect this is secondary to his seizure activity. He is taking his Keppra as prescribed for the patient. The patient states that he does not have a copy of his PET CT that was performed earlier this year, I will print this as well. He is told to take clear liquids only for the next 24- hour., Advance slowly to a bland diet, and seek out gastroenterology referral. He is to return to the ED with worsening or new concerning symptoms of any sort. - Vital Signs Vital signs: Temp Pulse Resp BP Pulse Ox 98.6 F 19 97/71 L 100 04/22/20 20:57 04/22/20 21:00 04/22/20 20:05 04/22/20 21:00 - Laboratory Result Diagrams: 04/22/20 20:09 04/22/20 20:09 Laboratory results interpreted by me: 04/22/20 04/22/20 04/22/20 20:09 20:09 20:44 WBC 13.3 H RBC 5.72 H Hgb 17.3 H Hct 52.2 H Carbon Dioxide 11 L Anion Gap 25 H Glucose 143 H Magnesium 3.0 H Total Protein 8.3 H Albumin 5.1 H Lipase 896.7 H Urine Protein 30 H Urine Ketones TRACE H Urine Blood MODERATE H Urine Urobilinogen 2.0 H - Diagnostic Test Radiology reviewed: Reports reviewed Radiology results interpreted by me: 04/22/20 21:03 Abdomen/Pelvis CT 04/22/20 20:08 IMPRESSION: 1. Colitis involving the descending transverse and proximal descending colon. Rule out inflammatory bowel disease. 2. Suspected previous colitis in the rectum is less obvious on the current study. 3. Mild fatty liver. Discharge - Discharge Clinical Impression: Seizure, Leukocytosis, Left sided abdominal pain Condition: Stable Disposition: HOME, SELF-CARE Instructions: Abdominal Pain ([facility]), Seizure, Known Epileptic ([facility]) Additional Instructions: Clear liquids only for the next 24 hours, then advance slowly to a bland diet. You should seek out referral to gastroenterology for further evaluation. Continue to take your Keppra as directed. Follow-up with primary care this week. Enclosed today is a copy of your PET scan. Return to the emergency department with worsening or new concerning symptoms of any sort. Referrals: [facility] [Primary Care Provider] - Follow up as needed
[2020-04-22 20:39] LABS: ALBUMIN 5.1 g/dL (3.5-5.0); ALKALINE PHOSPHATASE 46 U/L (38-126); ASPARTATE AMINO TRANSFERASE 38 U/L (17-59); BILIRUBIN,TOTAL 1.2 mg/dL (0.2-1.3); BLOOD UREA NITROGEN 9 mg/dL (7-20); CALCIUM 10.1 mg/dL (8.4-10.2); GLUCOSE 143 mg/dL (75-110); POTASSIUM 3.6 mmol/L (3.6-5.0); TOTAL PROTEIN 8.3 g/dL (6.3-8.2)
[2020-04-22 20:43] LABS: CARBON DIOXIDE 11 mmol/L (22-30); CHLORIDE 101 mmol/L (98-107)
[2020-04-22 20:52] LABS: ALCOHOL < 10 mg/dL (NONE DETECTED); ANION GAP 25 (5-19)
--- NOTE | 2020-04-22 20:55 | RADIOLOGY REPORT (SQ) ---
EXAM DESCRIPTION: CLINICAL HISTORY: 39 years Male abdominal pain COMPARISON: 07/12/2019. TECHNIQUE: Axial images with 100 mL of Omnipaque 350. Sagittal coronal reconstruction. This exam was performed according to our departmental dose-optimization program, which includes automated exposure control, adjustment of the mA and/or kV according to patient size and/or use of iterative reconstruction technique.. FINDINGS: Lung bases are unremarkable. Question fatty liver. No focal lesions. Biliary system, spleen, pancreas, adrenal glands, kidneys, aorta and para-aortic regions are unremarkable. Suspected colitis involving the ascending transverse and proximal descending colon. No significant pericolonic abnormalities. CT of the pelvis demonstrates mildly distended urinary bladder. Prostate not enlarged. No free fluid or adenopathy. No definite colitis in the rectosigmoid colon. Review of CT from 07/12/2019 demonstrates suspected colitis in the rectum. This appears improved on current study. IMPRESSION: 1. Colitis involving the descending transverse and proximal descending colon. Rule out inflammatory bowel disease. 2. Suspected previous colitis in the rectum is less obvious on the current study. 3. Mild fatty liver.
[2020-04-22 21:02] LABS: APPEARANCE,URINE CLEAR; BILIRUBIN,URINE NEGATIVE (NEGATIVE); COLOR,URINE YELLOW; GLUCOSE, URINE NEGATIVE (NEGATIVE); KETONES,URINE TRACE mg/dL (NEGATIVE); LEUKOCYTE ESTERASE,URINE NEGATIVE (NEGATIVE); NITRITE,URINE NEGATIVE (NEGATIVE); PROTEIN,URINE 30 mg/dL (NEGATIVE); URINE SPECIFIC GRAVITY 1.025
[2020-04-22 21:15] LABS: URINE AMPHETAMINES SCREEN NEGATIVE; URINE BARBITURATES SCREEN NEGATIVE; URINE BENZODIAZEPINES SCREEN NEGATIVE; URINE COCAINE SCREEN NEGATIVE; URINE METHADONE SCREEN NEGATIVE; URINE PHENCYCLIDINE SCREEN NEGATIVE
[2020-04-22 21:16] LABS: URINE MARIJUANA (THC) SCREEN UNCONFIRMED POSITIVE
[2020-04-22 23:35] VITALS: BP 127/84
== END 2020-04-22 23:10 | disposition home or self-care (01) ==
LOC: ER 19:53
DX: G40.909 Epilepsy, unspecified, not intractable, without status epilepticus (principal); S51.812A Laceration without foreign body of left forearm, initial encounter; S31.119A Laceration without foreign body of abdominal wall, unspecified quadrant without penetration into peritoneal cavity, initial encounter; W19.XXXA Unspecified fall, initial encounter; K76.0 Fatty (change of) liver, not elsewhere classified; R11.0 Nausea; D72.829 Elevated white blood cell count, unspecified; R10.9 Unspecified abdominal pain; R10.812 Left upper quadrant abdominal tenderness; R10.814 Left lower quadrant abdominal tenderness; R40.0 Somnolence; F17.200 Nicotine dependence, unspecified, uncomplicated; Z79.899 Other long term (current) drug therapy; Z91.018 Allergy to other foods; Z91.048 Other nonmedicinal substance allergy status
CPT/HCPCS: 99285; 96360; 36415; 80307 ×2; 83690; 83735; 85025; 80053; 81001; 74177; J7030

== ENCOUNTER 2020-06-06 12:52 | Emergency (ER) | payer SELFPAY ==
--- NOTE | 2020-06-06 14:27 | RADIOLOGY REPORT (SQ) ---
EXAM DESCRIPTION: CHEST SINGLE VIEW IMAGES COMPLETED DATE/TIME: 06/06/2020 2:16 pm REASON FOR STUDY: Seizure COMPARISON: 01/09/2020 EXAM PARAMETERS: NUMBER OF VIEWS: One view. TECHNIQUE: Single frontal radiographic view of the chest acquired. RADIATION DOSE: NA LIMITATIONS: None. FINDINGS: LUNGS AND PLEURA: No opacities, masses or pneumothorax. No pleural effusion. MEDIASTINUM AND HILAR STRUCTURES: No masses. Contour normal. HEART AND VASCULAR STRUCTURES: Heart normal in size. Normal vasculature. BONES: No acute findings. HARDWARE: None in the chest. OTHER: No other significant finding. IMPRESSION: NO ACUTE RADIOGRAPHIC FINDING IN THE CHEST. TECHNICAL DOCUMENTATION: JOB ID: [id number] 2010 [employer]- All Rights Reserved Reading location - IP/workstation name: [email or web address]
[2020-06-06 14:28] LABS: ABSOLUTE BASOPHILS # (AUTO) 0.1 10^3/uL (0.0-0.2); ABSOLUTE LYMPHOCYTES (AUTO) 3.4 10^3/uL (0.5-4.7); ABSOLUTE NEUT (AUTO) 14.2 10^3/uL (1.7-8.2); BASOPHILS % (AUTO) 0.6 % (0-2); HEMATOCRIT 52.7 % (37.9-51.0); HEMOGLOBIN 17.3 g/dL (13.5-17.0); LYMPHOCYTES % (AUTO) 18.2 % (13-45); MEAN CORPUSCULAR HEMOGLOBIN 29.7 pg (27.0-33.4); MEAN CORPUSCULAR HGB CONC 32.7 g/dL (32.0-36.0); MEAN CORPUSCULAR VOLUME 91 fl (80-97); MONOCYTES % (AUTO) 5.2 % (3-13); PLATELET COUNT 347 10^3/uL (150-450); RED CELL DISTRIBUTION WIDTH 12.9 % (11.5-14.0); TOTAL CELLS COUNTED % (AUTO) 100 %; WHITE BLOOD COUNT 18.6 10^3/uL (4.0-10.5)
[2020-06-06 14:31] LABS: ALBUMIN 5.1 g/dL (3.5-5.0); ALKALINE PHOSPHATASE 53 U/L (38-126); ASPARTATE AMINO TRANSFERASE 44 U/L (17-59); BILIRUBIN,DIRECT 0.4 mg/dL (0.0-0.4); BILIRUBIN,TOTAL 0.9 mg/dL (0.2-1.3); BLOOD UREA NITROGEN 10 mg/dL (7-20); CALCIUM 9.9 mg/dL (8.4-10.2); GLUCOSE 112 mg/dL (75-110); POTASSIUM 3.8 mmol/L (3.6-5.0); TOTAL PROTEIN 8.1 g/dL (6.3-8.2)
[2020-06-06 14:36] LABS: CARBON DIOXIDE 14 mmol/L (22-30); CHLORIDE 98 mmol/L (98-107)
[2020-06-06 14:40] LABS: VENOUS BLOOD BASE EXCESS -1.1 mmol/L; VENOUS BLOOD HCO3 24.9 mmol/L (20-32); VENOUS BLOOD PCO2 45.8 mmHg (35-63); VENOUS BLOOD PH 7.35 (7.30-7.42)
[2020-06-06 14:40] LABS: ALCOHOL < 10 mg/dL (NONE DETECTED); ANION GAP 25 (5-19)
--- NOTE | 2020-06-06 14:46 | RADIOLOGY REPORT (SQ) ---
EXAM DESCRIPTION: CT HEAD WITHOUT IMAGES COMPLETED DATE/TIME: 06/06/2020 2:34 pm REASON FOR STUDY: Seizure COMPARISON: CT 09/22/2019 MRI 01/12/2020 TECHNIQUE: Axial images acquired through the brain without intravenous contrast. Images reviewed wi th bone, brain and subdural windows. Additional sagittal and coronal reconstructions were generated. Images stored on PACS. All CT scanners at this facility use dose modulation, iterative reconstruction, and/or weight based d osing when appropriate to reduce radiation dose to as low as reasonably achievable (ALARA). [facility]: Dose Right [facility]: CareDose [facility]: Dose Right [facility]: Teradose 4D [facility]: Smart [employer] RADIATION DOSE: CT Rad equipment meets quality standard of care and radiation dose reduction techniq ues were employed. CTDIvol: 53.2 mGy. DLP: 1124 mGy-cm. mGy. LIMITATIONS: None. FINDINGS: VENTRICLES: Normal size and contour. CEREBRUM: No masses. No hemorrhage. No midline shift. No evidence for acute infarction. Normal gra y/white matter differentiation. No areas of low density in the white matter. CEREBELLUM: No masses. No hemorrhage. No alteration of density. No evidence for acute infarction. EXTRAAXIAL SPACES: No fluid collections. No masses. ORBITS AND GLOBE: No intra- or extraconal masses. Normal contour of globe without masses. CALVARIUM: No fracture. PARANASAL SINUSES: Stable mass in the left sphenoid sinus. SOFT TISSUES: No mass or hematoma. OTHER: No other significant finding. IMPRESSION: Stable masslike opacification in the left sphenoid sinus. No acute finding. EVIDENCE OF ACUTE STROKE: NO. COMMENT: Quality ID # [id number]: Final reports with documentation of one or more dose reduction techniques (e.g., Automated exposure control, adjustment of the mA and/or kV according to patient size, use of iterative reconstruction technique) TECHNICAL DOCUMENTATION: JOB ID: [id number] 2010 [email or web address]- All Rights Reserved Reading location - IP/workstation name: [email or web address]
--- NOTE | 2020-06-06 14:49 | RADIOLOGY REPORT (SQ) ---
EXAM DESCRIPTION: CT CERVICAL SPINE WITHOUT IMAGES COMPLETED DATE/TIME: 06/06/2020 2:34 pm REASON FOR STUDY: Seizure COMPARISON: None. TECHNIQUE: Axial images acquired through the cervical spine without intravenous contrast. Images re viewed with lung, soft tissue and bone windows. Reconstructed coronal and sagittal MPR images review ed. Images stored on PACS. All CT scanners at this facility use dose modulation, iterative reconstruction, and/or weight based d osing when appropriate to reduce radiation dose to as low as reasonably achievable (ALARA). [facility]: Dose Right [facility]: CareDose [facility]: Dose Right [facility]: Teradose 4D [facility]: Smart [employer] RADIATION DOSE: CT Rad equipment meets quality standard of care and radiation dose reduction techniq ues were employed. CTDIvol: 15.6 mGy. DLP: 361 mGy-cm. mGy. LIMITATIONS: None. FINDINGS: ALIGNMENT: Anatomic. MINERALIZATION: Normal. VERTEBRAL BODIES: No fractures or dislocation. DISCS: There are mild degenerative disc changes from C5-C7 with small marginal osteophytes. FACETS, LATERAL MASSES, POSTERIOR ELEMENTS: No fractures. No dislocation. No acute findings. HARDWARE: None in the spine. VISUALIZED RIBS: No fractures. LUNG APICES AND SOFT TISSUES: No significant or acute findings. OTHER: No other significant finding. IMPRESSION: Mild degenerative disc changes and spondylosis. No acute finding. TECHNICAL DOCUMENTATION: JOB ID: [id number] Quality ID # [id number]: Final reports with documentation of one or more dose reduction techniques (e.g., Au tomated exposure control, adjustment of the mA and/or kV according to patient size, use of iterative reconstruction technique) 2010 [employer]- All Rights Reserved Reading location - IP/workstation name: [email or web address]
[2020-06-06] MEDS ORDERED: LEVETIRACETAM 1000 MG/NACL-ISO 1,000 MG/100 ML RTUPB IV ONE (15:02)
[2020-06-06] MEDS ORDERED: KETOROLAC TROMETHAMINE INJ/PF 30 MG/1 ML SDV IV ONE (15:02)
[2020-06-06 15:20] LABS: APPEARANCE,URINE CLEAR; BILIRUBIN,URINE NEGATIVE (NEGATIVE); COLOR,URINE YELLOW; GLUCOSE, URINE NEGATIVE (NEGATIVE); KETONES,URINE NEGATIVE (NEGATIVE); PROTEIN,URINE 100 mg/dL (NEGATIVE); URINE SPECIFIC GRAVITY 1.017
[2020-06-06 15:24] LABS: RBC,URINE 0-1 /HPF
--- NOTE | 2020-06-06 15:27 | RADIOLOGY REPORT (SQ) ---
EXAM DESCRIPTION: ANKLE LEFT COMPLETE IMAGES COMPLETED DATE/TIME: 06/06/2020 3:14 pm REASON FOR STUDY: trauma, pain COMPARISON: None. NUMBER OF VIEWS: Three views. TECHNIQUE: AP, lateral, and oblique radiographic images acquired of the left ankle. LIMITATIONS: None. FINDINGS: MINERALIZATION: Normal. BONES: No acute fracture or dislocation. No worrisome bone lesions. JOINTS: No effusions. SOFT TISSUES: No soft tissue swelling. No foreign body. OTHER: No other significant finding. IMPRESSION: NEGATIVE STUDY OF THE LEFT ANKLE. NO RADIOGRAPHIC EVIDENCE OF ACUTE INJURY. TECHNICAL DOCUMENTATION: JOB ID: [id number] 2010 [employer]- All Rights Reserved Reading location - IP/workstation name: [email or web address]
[2020-06-06 16:12] LABS: URINE AMPHETAMINES SCREEN NEGATIVE; URINE BARBITURATES SCREEN NEGATIVE; URINE BENZODIAZEPINES SCREEN NEGATIVE; URINE COCAINE SCREEN NEGATIVE; URINE MARIJUANA (THC) SCREEN UNCONFIRMED POSITIVE; URINE METHADONE SCREEN NEGATIVE; URINE PHENCYCLIDINE SCREEN NEGATIVE
[2020-06-06] MEDS ORDERED: NORMAL SALINE 1000 ML 1,000 ML IV ONE (16:41)
--- NOTE | 2020-06-06 18:06 | ER Document Report ---
ED General - General Chief Complaint: Seizure Stated Complaint: POSSIBLE SEIZURE Time Seen by Provider: 06/06/20 13:05 Primary Care Provider: [facility] [Primary Care Provider] - Follow up as needed TRAVEL OUTSIDE OF THE [place] IN LAST 30 DAYS: No - HPI Notes: Chief complaint: Seizure History of present illness: 39-year-old male with known seizure disorder brought in by EMS after missing his dose of Keppra today and then experiencing 3 brief generalized seizures at home. No additional treatment was rendered during transport. Patient is mildly postictal. He is also complaining of some discomfort of his left ankle. Patient has a history of alcohol abuse continues to drink heavily. He denies drug abuse at this time. I went back and reviewed old records and this man has rather complex medical situation. 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 He apparently no longer has a primary care doctor and has lost his health insurance. He is work through case management but has not been unable to find any other source of funding for medical attention and has not been able to get a local ENT specialist see him. He also is known to have a thymoma which is untreated. - Related Data Allergies/Adverse Reactions: banana Allergy (Verified 06/06/20 13:14) cat dander Allergy (Verified 06/06/20 13:14) Home Medications: zofran, keppra Past Medical History - General Information source: Patient, REPLACED BY [facility] Records - Social History Smoking Status: Never Smoker Frequency of alcohol use: Heavy Drug Abuse: Marijuana, Other Lives with: Family Family History: Reviewed & Not Pertinent - Past Medical History Cardiac Medical History: Denies: Hx Coronary Artery Disease, Hx Heart Attack, Hx Hypertension Pulmonary Medical History: Denies: Hx Asthma, Hx Bronchitis, Hx COPD, Hx Pneumonia EENT Medical History: Reports: Other - Sphenoid sinus mass left Neurological Medical History: Reports: Hx Seizures - pseudo (heat based) seizu res, 3 years. Denies: Hx Cerebrovascular Accident Renal/ Medical History: Denies: Hx Peritoneal Dialysis Musculoskeletal Medical History: Denies Hx Arthritis Psychiatric Medical History: Reports: Hx Anxiety, Hx Depression Surgical Hx: Negative - Immunizations Immunizations up to date: Yes Hx Diphtheria, Pertussis, Tetanus Vaccination: Yes Review of Systems - Review of Systems Notes: Constitutional: Negative for fever. HENT: As per HPI. Eyes: Negative for visual changes. Cardiovascular: Negative for chest pain. Respiratory: Negative for shortness of breath. Gastrointestinal: Negative for abdominal pain, vomiting or diarrhea. Genitourinary: Negative for dysuria. Musculoskeletal: Complains of left shoulder and ankle pain. Negative for back pain. Skin: Negative for rash. Neurological: As per HPI. 10 point ROS negative except as marked above and in HPI. Physical Exam - Vital signs Vitals: Resp 22 H 06/06/20 12:55 - Notes Notes: GENERAL: Well-developed well-nourished male approximately stated age appearing mildly postictal. SKIN: Good turgor no rashes. HEAD: Normocephalic atraumatic. EYES: Mild bruising and soft tissue swelling of left upper eyelid. PERRLA. EOMI. Conjunctivae and sclerae clear. EARS: CANALS AND TMS CLEAR. NOSE: CLEAR. MOUTH: Moist mucosa. Good dentition. No stridor or edema. No drooling. NECK: Supple. No masses or thyromegaly. No adenopathy. Carotids 2+ without bruits. No JVD. BACK: Symmetrical without tenderness. CHEST: Respirations unlabored. Breath sounds clear and symmetrical. HEART: Regular rhythm. No murmur gallop or rub. ABDOMEN: Soft nontender without masses, organomegaly or rebound. Bowel sounds normally active. No bruits. GENITALIA: Deferred. EXTREMITIES: No edema. No calf tenderness. Cap refill less than 1.5 seconds. Dorsalis pedis and posterior tibial pulses 3+ and symmetrical. NEUROLOGICAL: Sleepy but easily arousable and oriented x3 GCS 14 (one off for eyes). Oriented x3. Fluent speech. Cranial nerves II through XII intact. Sensorimotor and cerebellar normal. Normal tone. PSYCHIATRIC: Appropriate affect. Course - Re-evaluation Re-evalutation: 06/06/20 19:48 Patient received IV Keppra. We got plain films of his left ankle and left shoulder no fractures were identified. I did a noncontrast head CT and this was remarkable for previously identified left sphenoid mass. He is previously been advised to see ENT but is failed to do so. I reemphasized him the importance of this. I do not see any acute traumatic changes present. He is currently back to baseline recovering from his postictal state. I feel he is stable for discharge and I instructed him in the importance of compliance with his prescribed anticonvulsant medication and avoidance of alcohol and substance ingestion. - Vital Signs Vital signs: Temp Pulse Resp BP Pulse Ox 18 115/80 95 06/06/20 17:01 06/06/20 17:01 06/06/20 17:01 - Laboratory Result Diagrams: 06/06/20 13:13 06/06/20 13:13 Laboratory results interpreted by me: 06/06/20 06/06/20 06/06/20 13:13 13:13 13:13 WBC 18.6 H RBC 5.80 H Hgb 17.3 H Hct 52.7 H Absolute Neuts (auto) 14.2 H Carbon Dioxide 14 L Anion Gap 25 H Glucose 112 H Lactic Acid 14.1 H Albumin 5.1 H Urine Protein Urine Blood Urine Urobilinogen Urine Ascorbic Acid 06/06/20 14:55 WBC RBC Hgb Hct Absolute Neuts (auto) Carbon Dioxide Anion Gap Glucose Lactic Acid Albumin Urine Protein 100 H Urine Blood SMALL H Urine Urobilinogen 2.0 H Urine Ascorbic Acid 20 H Discharge - Discharge Clinical Impression: Seizure Disposition: HOME, SELF-CARE Additional Instructions: Take your Keppra as recommended. Do not skip or miss doses. Do not drink beer, wine or whiskey. Do not smoke marijuana. Apply ice packs to bruised area left side of face. You may take Tylenol as needed for pain. You need to see an salesperson hearing aids as soon as possible regarding the previously identified growth in your sinus and see your primary care provider for additional referrals as necessary. Return here as needed for new or worsening symptoms. [facility]errals: [facility] [Primary [facility] Provider] - Follow up as needed
--- NOTE | 2020-06-06 19:43 | RADIOLOGY REPORT (SQ) ---
EXAM DESCRIPTION: SHOULDER LEFT 2 OR MORE VIEWS IMAGES COMPLETED DATE/TIME: 06/06/2020 7:33 pm REASON FOR STUDY: injury COMPARISON: None. NUMBER OF VIEWS: Three views. TECHNIQUE: Internal rotation, external rotation, and Y view images acquired of the left shoulder. LIMITATIONS: None. FINDINGS: MINERALIZATION: Normal. BONES: No acute fracture. No worrisome bone lesions. JOINTS: No dislocation. VISUALIZED LUNGS AND RIBS: No pneumothorax. No rib fracture. SOFT TISSUES: No radiopaque foreign body. OTHER: No other significant finding. IMPRESSION: NEGATIVE STUDY OF THE LEFT SHOULDER. NO RADIOGRAPHIC EVIDENCE OF ACUTE INJURY. TECHNICAL DOCUMENTATION: JOB ID: [id number] 2010 [employer]- All Rights Reserved Reading location - IP/workstation name: [email or web address]
[2020-06-06 20:11] VITALS: BP 104/79
--- NOTE | 2020-06-07 11:15 | EKG REPORT ---
SEVERITY:- BORDERLINE ECG - SINUS RHYTHM PROBABLE LEFT ATRIAL ABNORMALITY : Confirmed by: Cheryl Rockwell MD 07-Jun-2020 11:14:53
== END 2020-06-06 20:35 | disposition home or self-care (01) ==
LOC: ER 12:52
DX: G40.909 Epilepsy, unspecified, not intractable, without status epilepticus (principal); M25.572 Pain in left ankle and joints of left foot; M25.512 Pain in left shoulder; R10.10 Upper abdominal pain, unspecified; F12.10 Cannabis abuse, uncomplicated; Z88.8 Allergy status to other drugs, medicaments and biological substances; Z79.899 Other long term (current) drug therapy
CPT/HCPCS: 93005; 99285; 96361; 96374; 96375; 36415; 80307 ×2; 83605; 85025; 80053; 81001; 82803; 73610; 71045; 73030; 70450; 72125; 93010; J1885; J7030; J1953

== ENCOUNTER 2020-07-18 08:57 | Emergency (ER) | payer SELFPAY ==
[2020-07-18 10:11] VITALS: BP 123/92
[2020-07-18] MEDS ORDERED: LEVETIRACETAM 1000 MG/NACL-ISO 1,000 MG/100 ML RTUPB IV ONE (10:34)
--- NOTE | 2020-07-18 10:41 | ER Document Report ---
ED General - General Chief Complaint: Tremor Stated Complaint: TREMERS/NAUSEA/BURNING SENSATION IN CHEST Time Seen by Provider: 07/18/20 10:13 TRAVEL OUTSIDE OF THE [place] IN LAST 30 DAYS: No - HPI Notes: Chief complaint: Seizure History of present illness: 39-year-old male with known seizure disorder brought in by EMS after missing his dose of Keppra today and then experiencing 3 brief generalized seizures at home. No additional treatment was rendered during transport. Patient is mildly postictal. Patient has a history of alcohol abuse continues to drink heavily. He denies drug abuse at this time. Seen by me in this ED with identical presentation ~6 weeks ago. Has not f/u with referral PMD or Neurology or ENT. I went back and reviewed old records and this man has rather complex medical situation. 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 Case management expended considerable efforts to get ENT and neurology follow-up for this patient. He has not followed up on any of this. He also is known to have a thymoma which is untreated. Home Medications: zofran, keppra - Review of Systems Notes: Constitutional: Negative for fever. HENT: As per HPI. Eyes: Negative for visual changes. Cardiovascular: Negative for chest pain. Respiratory: Negative for shortness of breath. Gastrointestinal: Negative for abdominal pain, vomiting or diarrhea. Genitourinary: Negative for dysuria. Musculoskeletal: Complains of left shoulder and ankle pain. Negative for back pain. Skin: Negative for rash. Neurological: As per HPI. 10 point ROS negative except as marked above and in HPI. Physical Exam - Vital signs Vitals: Resp 22 H 06/06/20 12:55 - Notes Notes: GENERAL: Well-developed well-nourished male approximately stated age appearing mildly postictal. SKIN: Good turgor no rashes. HEAD: Normocephalic atraumatic. EYES: Mild bruising and soft tissue swelling of left upper eyelid. PERRLA. EOMI. Conjunctivae and sclerae clear. EARS: CANALS AND TMS CLEAR. NOSE: CLEAR. MOUTH: Moist mucosa. Good dentition. No stridor or edema. No drooling. NECK: Supple. No masses or thyromegaly. No adenopathy. Carotids 2+ without bruits. No JVD. BACK: Symmetrical without tenderness. CHEST: Respirations unlabored. Breath sounds clear and symmetrical. HEART: Regular rhythm. No murmur gallop or rub. ABDOMEN: Soft nontender without masses, organomegaly or rebound. Bowel sounds normally active. No bruits. GENITALIA: Deferred. EXTREMITIES: No edema. No calf tenderness. Cap refill less than 1.5 seconds. Dorsalis pedis and posterior tibial pulses 3+ and symmetrical. NEUROLOGICAL: Sleepy but easily arousable and oriented x3 GCS 14 (one off for eyes). Oriented x3. Fluent speech. Cranial nerves II through XII intact. Sensorimotor and cerebellar normal. Normal tone. PSYCHIATRIC: Appropriate affect. - Related Data Allergies/Adverse Reactions: banana Allergy (Verified 06/06/20 13:14) cat dander Allergy (Verified 06/06/20 13:14) Home Medications: Keppra Past Medical History - General Information source: Patient, [facility] Records - Social History Smoking Status: Current Every Day Smoker Frequency of alcohol use: Occasional Drug Abuse: Marijuana Lives with: Family Family History: Reviewed & Not Pertinent - Past Medical History Cardiac Medical History: Denies: Hx Coronary Artery Disease, Hx Heart Attack, Hx Hypertension Pulmonary Medical History: Denies: Hx Asthma, Hx Bronchitis, Hx COPD, Hx Pneumonia Neurological Medical History: 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 Denies: Hx Cerebrovascular Accident Renal/ Medical History: Denies: Hx Peritoneal Dialysis Musculoskeletal Medical History: Denies Hx Arthritis Psychiatric Medical History: Reports: Hx Anxiety, Hx Depression - Immunizations Immunizations up to date: Yes Hx Diphtheria, Pertussis, Tetanus Vaccination: Yes Review of Systems - Review of Systems Notes: Review of Systems Notes: Constitutional: Negative for fever. HENT: As per HPI. Eyes: Negative for visual changes. Cardiovascular: Negative for chest pain. Respiratory: Negative for shortness of breath. Gastrointestinal: Negative for abdominal pain, vomiting or diarrhea. Genitourinary: Negative for dysuria. Musculoskeletal: Complains of left shoulder and ankle pain. Negative for back pain. Skin: Negative for rash. Neurological: As per HPI. 10 point ROS negative except as marked above and in HPI. Physical Exam - Vital signs Vitals: Resp Pulse Ox 11 L 100 07/18/20 09:12 07/18/20 09:12 - Notes Notes: Physical Exam - Vital signs Vitals: Resp 22 H 06/06/20 12:55 GENERAL: Well-developed well-nourished male approximately stated age appearing mildly postictal. SKIN: Good turgor no rashes. HEAD: Normocephalic atraumatic. EYES: Mild bruising and soft tissue swelling of left upper eyelid. PERRLA. EOMI. Conjunctivae and sclerae clear. EARS: CANALS AND TMS CLEAR. NOSE: CLEAR. MOUTH: Moist mucosa. Good dentition. No stridor or edema. No drooling. NECK: Supple. No masses or thyromegaly. No adenopathy. Carotids 2+ without bruits. No JVD. BACK: Symmetrical without tenderness. CHEST: Respirations unlabored. Breath sounds clear and symmetrical. HEART: Regular rhythm. No murmur gallop or rub. ABDOMEN: Soft nontender without masses, organomegaly or rebound. Bowel sounds normally active. No bruits. GENITALIA: Deferred. EXTREMITIES: No edema. No calf tenderness. Cap refill less than 1.5 seconds. Dorsalis pedis and posterior tibial pulses 3+ and symmetrical. NEUROLOGICAL: Sleepy but easily arousable and oriented x3 GCS 14 (one off for eyes). Oriented x3. Fluent speech. Cranial nerves II through XII intact. Sensorimotor and cerebellar normal. Normal tone. PSYCHIATRIC: Appropriate affect. Course - Re-evaluation Re-evalutation: 07/18/20 10:41 I placed patient on monitor and ordered IV Keppra EKG and routine labs. Nurse subsequently came and told me that patient had decided he wished to sign out AMA. He is taken all monitor leads off and is standing and walking without assistance. He is fully oriented. Talked about need for follow-up with primary care, neurology and ENT. I had already requested for consultation with discharge planning to assist him again but he does not want to wait for this. I believe he has adequate capacity to decline further care at this time. We advised him that we would be happy to reevaluate him if he should change his mind later. He is encouraged to take his Keppra and avoid missing doses. He is also given warnings regarding potentially unsafe activities this time including driving, operating machinery or swimming. He is encouraged to see primary care as previously advised. Findings, clinical impression and plan of treatment have been discussed with patient/family. Understanding of current findings and recommendations has been acknowledged by them and there is agreement regarding disposition and follow-up. - Vital Signs Vital signs: Temp Pulse Resp BP Pulse Ox 98.0 F 73 15 123/92 H 98 07/18/20 09:24 07/18/20 09:24 07/18/20 10:01 07/18/20 10:00 07/18/20 10:00 Discharge - Discharge Clinical Impression: Seizure Disposition: AGAINST MEDICAL ADVICE Referrals: [facility] [Provider Group] - Follow up as needed
[2020-07-18 12:26] LABS: ABSOLUTE BASOPHILS # (AUTO) 0.1 10^3/uL (0.0-0.2); ABSOLUTE LYMPHOCYTES (AUTO) 2.7 10^3/uL (0.5-4.7); ABSOLUTE MONOCYTES (AUTO) 0.4 10^3/uL (0.1-1.4); ABSOLUTE NEUT (AUTO) 3.3 10^3/uL (1.7-8.2); HEMATOCRIT 47.3 % (37.9-51.0); HEMOGLOBIN 15.8 g/dL (13.5-17.0); LYMPHOCYTES % (AUTO) 41.4 % (13-45); MEAN CORPUSCULAR HEMOGLOBIN 29.7 pg (27.0-33.4); MEAN CORPUSCULAR HGB CONC 33.4 g/dL (32.0-36.0); MEAN CORPUSCULAR VOLUME 89 fl (80-97); PLATELET COUNT 297 10^3/uL (150-450); RED BLOOD COUNT 5.32 10^6/uL (4.35-5.55); RED CELL DISTRIBUTION WIDTH 12.7 % (11.5-14.0); SEGMENTED NEUTROPHILS % (AUTO) 51.6 % (42-78); TOTAL CELLS COUNTED % (AUTO) 100 %; WHITE BLOOD COUNT 6.5 10^3/uL (4.0-10.5)
[2020-07-18 12:38] LABS: ALBUMIN 3.9 g/dL (3.5-5.0); ALCOHOL 16 mg/dL (NONE DETECTED); ALKALINE PHOSPHATASE 40 U/L (38-126); ANION GAP 8 (5-19); ASPARTATE AMINO TRANSFERASE 29 U/L (17-59); BILIRUBIN,DIRECT 0.3 mg/dL (0.0-0.4); BILIRUBIN,TOTAL 0.5 mg/dL (0.2-1.3); BLOOD UREA NITROGEN 6 mg/dL (7-20); CALCIUM 9.2 mg/dL (8.4-10.2); CARBON DIOXIDE 25 mmol/L (22-30); CHLORIDE 106 mmol/L (98-107); GLUCOSE 86 mg/dL (75-110); POTASSIUM 4.1 mmol/L (3.6-5.0); TOTAL PROTEIN 6.8 g/dL (6.3-8.2)
== END 2020-07-18 10:50 | disposition left against medical advice (07) ==
LOC: ER 08:57
DX: G40.909 Epilepsy, unspecified, not intractable, without status epilepticus (principal); T42.6X6A Underdosing of other antiepileptic and sedative-hypnotic drugs, initial encounter; Z91.14 Patient's other noncompliance with medication regimen; Z79.899 Other long term (current) drug therapy; M25.572 Pain in left ankle and joints of left foot; M25.512 Pain in left shoulder; S00.12XA Contusion of left eyelid and periocular area, initial encounter; X58.XXXA Exposure to other specified factors, initial encounter; D49.89 Neoplasm of unspecified behavior of other specified sites; R22.0 Localized swelling, mass and lump, head; F17.200 Nicotine dependence, unspecified, uncomplicated; F12.10 Cannabis abuse, uncomplicated; Z91.018 Allergy to other foods; Z91.048 Other nonmedicinal substance allergy status; Z53.20 Procedure and treatment not carried out because of patient's decision for unspecified reasons
CPT/HCPCS: 36415; 80053; 80307; 83735; 85025; 99283

== ENCOUNTER 2020-07-21 12:59 | Emergency (ER) | payer SELFPAY ==
[2020-07-21] MEDS ORDERED: LORAZEPAM INJ 2 MG/1 ML VIAL IV ONE ×2 (13:21→14:37)
[2020-07-21] MEDS ORDERED: LEVETIRACETAM 500 MG/NACL-ISO 500 MG/100 ML RTUPB IV ONE (13:22)
--- NOTE | 2020-07-21 13:27 | ER Document Report ---
ED Seizure - General Chief Complaint: Seizure Stated Complaint: SEIZURE Time Seen by Provider: 07/21/20 13:19 Notes: 40-year-old man known history of seizure disorder and brain tumor presents to the emergency department with a history of found by a neighbor in the yard post seizure activity. He complains of headache, upper lip pain and swelling. He also has some associated neck pain. EMS is placed him in a c-collar and he was transported to the emergency department. Apparently at this time of transport he became combative, no medications have been given. In the emergency department he became nauseated with vomiting episodes and able to notes that he had not taken his Keppra today and has only a few tablets left. 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 Denies: Hx Cerebrovascular Accident Renal/ Medical History: Denies: Hx Peritoneal Dialysis Musculoskeletal Medical History: Denies Hx Arthritis Psychiatric Medical History: Reports: Hx Anxiety, Hx Depression - Immunizations Immunizations up to date: Yes Hx Diphtheria, Pertussis, Tetanus Vaccination: Yes Review of Systems - Review of Systems Notes: Constitutional: Negative for fever. HENT: See HPI. Eyes: Negative for visual changes. Cardiovascular: Negative for chest pain. Respiratory: Negative for shortness of breath. Gastrointestinal: Negative for abdominal pain, vomiting or diarrhea. Genitourinary: Negative for dysuria. Musculoskeletal: Negative for back pain. Skin: Negative for rash. Neurological: Negative for headaches, weakness or numbness. 10 point ROS negative except as marked above and in HPI. Physical Exam - Vital signs Vitals: Temp Pulse Resp BP Pulse Ox 97.5 F 88 19 132/94 H 99 07/21/20 13:16 07/21/20 13:16 07/21/20 13:16 07/21/20 13:16 07/21/20 13:16 - Notes Notes: PHYSICAL EXAMINATION: Physical Exam: General: Well-nourished well-developed in no acute distress HEENT: NC/AT, pupils equal round and reactive to light, no laceration to the right side of the upper lip. + Right upper lip swelling MM moist,nares clear, oropharynx clear, airway patent Neck: supple, no adenopathy, no masses. Good range of motion Lungs: clear, no wheezing, no rales no rhonchi CVS: Regular rate and rhythm no murmur gallop or rub Abdomen: Soft, active, nontender, no masses, no hepatosplenomegaly Ext: No edema, clubbing or cyanosis. Neuro: Alert and responsive, oriented x3, moving all 4 extremities on command, cranial nerves intact, no focal findings Skin: Intact no open lesions, no rash PSYCH: Normal mood, normal affect. Course - Re-evaluation Re-evalutation: 07/21/20 16:28 CT scan of the head and cervical spine was performed. Both studies were negative for intracranial hemorrhage or cervical spine fracture/dislocation. I discussed these findings with the patient and explained to him that he will have to take his medications as prescribed. The hospital social science manager is seeing the patient now regarding acquiring Keppra medication until his Medicaid has been approved. 07/21/20 16:40 Hospital social science manager has seen the patient and is arranging for him to be able to get the Keppra at a local pharmacy. I explained to the patient that he will need to take the medication as prescribed to prevent further episodes from occurring. He appears to understand this plan, however a review of his records reveal that this has been a continued problem. He has stopped going to the [facility] and has not been taking the medication. - Vital Signs Vital signs: Temp Pulse Resp BP Pulse Ox 97.5 F 88 19 130/77 H 97 07/21/20 13:16 07/21/20 13:16 07/21/20 15:01 07/21/20 15:01 07/21/20 15:01 - Laboratory Result Diagrams: 07/21/20 13:20 07/21/20 13:20 Laboratory results interpreted by me: 07/21/20 07/21/20 13:20 13:20 WBC 13.2 H RBC 5.61 H Absolute Neuts (auto) 10.4 H Seg Neutrophils % 78.9 H Carbon Dioxide 18 L Anion Gap 23 H Calcium 10.8 H Magnesium 3.0 H Total Bilirubin 1.5 H Total Protein 8.8 H Albumin 5.4 H - Diagnostic Test Radiology reviewed: Image reviewed, Reports reviewed Radiology results interpreted by me: 07/21/20 16:29 CT head: No acute intracranial findings. CT cervical spine: No fracture, no dislocation. Discharge - Discharge Clinical Impression: Seizure Vomiting Qualifiers: Vomiting type: unspecified Vomiting Intractability: unspecified Nausea presence: unspecified Qualified Code(s): R11.10 - Vomiting, unspecified Headache Qualifiers: Headache type: unspecified Headache chronicity pattern: unspecified pattern Intractability: not intractable Qualified Code(s): R51.9 - Headache, unspecified Abrasion of vermilion border of upper lip Qualifiers: Encounter type: initial encounter Qualified Code(s): S00.511A - Abrasion of lip, initial encounter Condition: Good Disposition: HOME, SELF-CARE Instructions: Seizure, Known Epileptic ([facility]) Additional Instructions: You were seen in the emergency department today with an episode of seizure activity. Please take the Keppra as prescribed Please follow-up with your doctor as needed If you have further difficulties or concerns you may return to the emergency department for further evaluation and treatment HOME CARE INSTRUCTIONS & INFORMATION: Thank you for choosing us for your medical needs. We hope you're satisfied with the care you received. After you leave, you must properly care for your problem and, at the same time, observe its progress. Any condition can change. Some illnesses can change rapidly over hours or days. If your condition worsens, return to the Emergency Department or see your physician promptly. ABOUT YOUR X-RAYS AND EKG'S: If you had an EKG or X-rays taken, they have been read by the Emergency Physician. The X-rays and EKG's will also be read by a Radiologist or College [employer] Department Head within 24 hours. If discrepancies are noted, you will be notified by telephone. Please be certain the ED has a correct telephone number & address where you can be reached. Also, realize that some fractures or abnormalities do not show up on initial X-rays. If your symptoms continue, see your physician. ABOUT YOUR LABORATORY TEST: If you had laboratory tests, the results have been reviewed by the Emergency Physician. Some test results (for example cultures) may not be available for several days. You will be contacted if any test result shows you need additional treatment. Please be certain the ED has a correct telephone number and address where you can be reached. ABOUT YOUR MEDICATIONS: You will receive instructions on how to take your medicine on the prescription label you receive. Additional information may be provided by the Pharmacy. If you have questions afterwards, call the ED for clarification or further instructions. Some prescribed medications may cause drowsiness. Do not perform tasks such as driving a car or operating machinery without consulting your Pharmacist. If you feel you need a refill of pain medication, your condition will need re-evaluation. Please do not call for a refill of any medication. ABOUT YOUR SIGNATURE: Signature of this document acknowledges to followin. Understanding that you received emergency treatment and that you may be released before al medical problems are known or treated. Please be certain the ED has a correct phone number & address where you can be reached. 2. Acknowledgement that you will arrange for follow-up care as recommended. 3. Authorization for the Emergency Physician to provide information to your follow-up Physician in order to maximize your care. AT ANY TIME, IF YOUR SYMPTOMS CHANGE SIGNIFICANTLY OR WORSEN OR YOU DEVELOP NEW SYMPTOMS, RETURN TO THE EMERGENCY DEPARTMENT IMMEDIATELY FOR RE-EVALUATION. OUR GOAL IS TO PROVIDE EXCELLENT MEDICAL CARE! WE HOPE THAT WE HAVE MET YOUR EXPECTATIONS DURING YOUR EMERGENCY DEPARTMENT VISIT AND THAT YOU FEEL YOU HAVE RECEIVED EXCELLENT CARE! Prescriptions: Levetiracetam [Keppra 500 mg Tablet] 500 mg PO Q12 #90 tablet Referrals: [facility] [Provider Group] - Follow up as needed
[2020-07-21 14:07] LABS: ABSOLUTE BASOPHILS # (AUTO) 0.1 10^3/uL (0.0-0.2); ABSOLUTE MONOCYTES (AUTO) 0.7 10^3/uL (0.1-1.4); ABSOLUTE NEUT (AUTO) 10.4 10^3/uL (1.7-8.2); BASOPHILS % (AUTO) 0.7 % (0-2); HEMATOCRIT 49.3 % (37.9-51.0); HEMOGLOBIN 16.9 g/dL (13.5-17.0); LYMPHOCYTES % (AUTO) 15.3 % (13-45); MEAN CORPUSCULAR HEMOGLOBIN 30.2 pg (27.0-33.4); MEAN CORPUSCULAR HGB CONC 34.4 g/dL (32.0-36.0); MEAN CORPUSCULAR VOLUME 88 fl (80-97); MONOCYTES % (AUTO) 5.1 % (3-13); PLATELET COUNT 302 10^3/uL (150-450); RED BLOOD COUNT 5.61 10^6/uL (4.35-5.55); SEGMENTED NEUTROPHILS % (AUTO) 78.9 % (42-78); TOTAL CELLS COUNTED % (AUTO) 100 %; WHITE BLOOD COUNT 13.2 10^3/uL (4.0-10.5)
[2020-07-21 14:18] LABS: ALBUMIN 5.4 g/dL (3.5-5.0); ALKALINE PHOSPHATASE 59 U/L (38-126); ASPARTATE AMINO TRANSFERASE 43 U/L (17-59); BILIRUBIN,DIRECT 0.4 mg/dL (0.0-0.4); BILIRUBIN,TOTAL 1.5 mg/dL (0.2-1.3); BLOOD UREA NITROGEN 12 mg/dL (7-20); CALCIUM 10.8 mg/dL (8.4-10.2); CARBON DIOXIDE 18 mmol/L (22-30); CHLORIDE 101 mmol/L (98-107); GLUCOSE 79 mg/dL (75-110); POTASSIUM 3.9 mmol/L (3.6-5.0); TOTAL PROTEIN 8.8 g/dL (6.3-8.2)
[2020-07-21 14:23] LABS: ALCOHOL < 10 mg/dL (NONE DETECTED); ANION GAP 23 (5-19)
--- NOTE | 2020-07-21 15:04 | RADIOLOGY REPORT (SQ) ---
EXAM DESCRIPTION: CT HEAD WITHOUT IMAGES COMPLETED DATE/TIME: 07/21/2020 2:51 pm REASON FOR STUDY: Fall/trauma/seizure COMPARISON: 06/06/2020 TECHNIQUE: Axial images acquired through the brain without intravenous contrast. Images reviewed wit h bone, brain and subdural windows. Images stored on PACS. All CT scanners at this facility use dose modulation, iterative reconstruction, and/or weight based d osing when appropriate to reduce radiation dose to as low as reasonably achievable (ALARA). [facility]: Dose Right [facility]: CareDose [facility]: Dose Right [facility]: Teradose 4D [facility]: [employer] RADIATION DOSE: CT Rad equipment meets quality standard of care and radiation dose reduction techniq ues were employed. CTDIvol: 53.2 mGy. DLP: 964 mGy-cm.. LIMITATIONS: None. FINDINGS: VENTRICLES: Normal size and contour. CEREBRUM: No masses. No hemorrhage. No midline shift. Age appropriate white matter. No evidence for a cute infarction. CEREBELLUM: No masses. No hemorrhage. No alteration of density. No evidence for acute infarction. EXTRA-AXIAL SPACES: No fluid collections. ORBITS AND GLOBE: No intra- or extraconal masses. Normal contour of globe without masses. CALVARIUM: No fracture. PARANASAL SINUSES: Similar sphenoid sinus opacification. SOFT TISSUES: No mass or hematoma. OTHER: No other significant finding. IMPRESSION: NO ACUTE INTRACRANIAL FINDINGS.Similar sphenoid sinus opacification. EVIDENCE OF ACUTE STROKE: NO. TECHNICAL DOCUMENTATION: JOB ID: [id number] [place]-72 Quality ID # 436: Final reports with documentation of one or more dose reduction techniques (e.g., Au tomated exposure control, adjustment of the mA and/or kV according to patient size, use of iterative reconstruction technique) 2010 [employer]- All Rights Reserved Reading location - IP/workstation name: [email or web address]
--- NOTE | 2020-07-21 15:06 | RADIOLOGY REPORT (SQ) ---
EXAM DESCRIPTION: CT CERVICAL SPINE WITHOUT IMAGES COMPLETED DATE/TIME: 07/21/2020 2:51 pm REASON FOR STUDY: Fall/trauma/seizure COMPARISON: 06/06/2020 TECHNIQUE: Axial images acquired through the cervical spine without intravenous contrast. Images re viewed with lung, soft tissue and bone windows. Reconstructed coronal and sagittal MPR images review ed. Images stored on PACS. All CT scanners at this facility use dose modulation, iterative reconstruction, and/or weight based d osing when appropriate to reduce radiation dose to as low as reasonably achievable (ALARA). [facility]: Dose Right [facility]: CareDose [facility]: Dose Right [facility]: Teradose 4D [facility]: [employer] RADIATION DOSE: CT Rad equipment meets quality standard of care and radiation dose reduction techniq ues were employed. CTDIvol: 15.1 mGy. DLP: 384 mGy-cm. mGy. LIMITATIONS: None. FINDINGS: ALIGNMENT: Anatomic. MINERALIZATION: Normal. VERTEBRAL BODIES: No fractures or dislocation. DISCS: No significant disc disease. FACETS, LATERAL MASSES, POSTERIOR ELEMENTS: No fractures. No dislocation. No acute findings. HARDWARE: None in the spine. VISUALIZED RIBS: No fractures. LUNG APICES AND SOFT TISSUES: No significant or acute findings. OTHER: No other significant finding. IMPRESSION: NO ACUTE OR SIGNIFICANT FINDINGS IN THE CERVICAL SPINE. TECHNICAL DOCUMENTATION: JOB ID: [id number] [place]-72 Quality ID # 436: Final reports with documentation of one or more dose reduction techniques (e.g., Au tomated exposure control, adjustment of the mA and/or kV according to patient size, use of iterative reconstruction technique) 2010 [employer]- All Rights Reserved Reading location - IP/workstation name: [email or web address]
[2020-07-21] MEDS ORDERED: KETOROLAC TROMETHAMINE INJ/PF 30 MG/1 ML SDV IV ONE (16:44)
[2020-07-21 16:48] VITALS: BP 119/80
== END 2020-07-21 17:00 | disposition home or self-care (01) ==
LOC: ER 12:59
DX: S00.511A Abrasion of lip, initial encounter (principal); G40.909 Epilepsy, unspecified, not intractable, without status epilepticus; R11.10 Vomiting, unspecified; K08.89 Other specified disorders of teeth and supporting structures; R22.0 Localized swelling, mass and lump, head; X58.XXXA Exposure to other specified factors, initial encounter; Z79.899 Other long term (current) drug therapy; F17.200 Nicotine dependence, unspecified, uncomplicated
CPT/HCPCS: 99285; 96374; 96375; 36415; 82962; 80307; 83735; 85025; 80053; 70450; 72125; J1885; J2060; J1953

== ENCOUNTER 2020-09-05 07:40 | Emergency (ER) | payer OTHER ==
[2020-09-05] MEDS ORDERED: OXYCODONE-ACETAMINOPHEN 5-325 MG TABLET PO ONE (08:43)
--- NOTE | 2020-09-05 08:45 | ER Document Report ---
Entered by STEFANI QUEEN SCRIBE 09/05/20 0831 Acting as scribe for:KAROLINA CARO MD ED Extremity Problem, Lower - General Chief Complaint: Knee Pain Stated Complaint: LEFT KNEE INJURY Time Seen by Provider: 09/05/20 08:29 Mode of Arrival: Medic Information source: Patient Notes: This 40 year old male patient presents to the ED today via EMS with complaints of left knee pain after he accidentally slammed it directly into corner of a wall just prior to arrival. TRAVEL OUTSIDE OF THE [place] IN LAST 30 DAYS: No - Related Data Allergies/Adverse Reactions: banana Allergy (Verified 09/05/20 07:43) cat dander Allergy (Verified 09/05/20 07:43) No Known Drug Allergies Allergy (Verified 09/05/20 07:43) Past Medical History - General Information source: Patient, [facility] Records - Social History Smoking Status: Current Every Day Smoker Cigarette use (# per day): Yes - 2 cigarettes pd Chew tobacco use (# tins/day): No Smoking Education Provided: No Family History: Reviewed & Not Pertinent Patient has suicidal ideation: No Patient has homicidal ideation: No Neurological Medical History: 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, 3 years Psychiatric Medical History: Reports: Hx Anxiety, Hx Depression - Immunizations Immunizations up to date: Yes Hx Diphtheria, Pertussis, Tetanus Vaccination: Yes Review of Systems - Review of Systems Constitutional: No symptoms reported EENT: No symptoms reported Cardiovascular: No symptoms reported Respiratory: No symptoms reported Gastrointestinal: No symptoms reported Genitourinary: No symptoms reported Male Genitourinary: No symptoms reported Musculoskeletal: See HPI, Joint pain Skin: No symptoms reported Hematologic/Lymphatic: No symptoms reported Neurological/Psychological: No symptoms reported -: Yes All other systems reviewed and negative Physical Exam - Vital signs Vitals: Temp Pulse Resp Pulse Ox 98.1 F 82 16 98 09/05/20 07:48 09/05/20 07:48 09/05/20 07:48 09/05/20 07:48 Interpretation: Normal - General General appearance: Alert In distress: None - HEENT Head: Normocephalic, Atraumatic Eyes: Normal Pupils: PERRL - Respiratory Respiratory status: No respiratory distress Chest status: Nontender Breath sounds: Normal Chest palpation: Normal - Cardiovascular Rhythm: Regular Heart sounds: Normal auscultation Murmur: No - Abdominal Inspection: Normal Distension: No distension Bowel sounds: Normal Tenderness: Nontender - Abdomen soft Organomegaly: No organomegaly - Back Back: Normal, Nontender - Extremities General upper extremity: Normal inspection General lower extremity: No: Edema Knee: Tender - Very tender to palpate over the left patella and infrapatellar region. No significant swelling appreciated. There is a crease noted in the skin of the patella where he hit the corner of the wall. - Neurological Neuro grossly intact: Yes Orientation: AAOx4 Adams Coma Scale Eye Opening: Spontaneous Adams Coma Scale Verbal: Oriented Toya Coma Scale Motor: Obeys Commands Adams Coma Scale Total: 15 - Psychological Associated symptoms: Normal affect, Normal mood - Skin Skin Temperature: Warm Skin Moisture: Dry Skin Color: Normal Course - Vital Signs Vital signs: Temp Pulse Resp BP Pulse Ox 98.1 F 82 16 98 09/05/20 07:48 09/05/20 07:48 09/05/20 07:48 09/05/20 07:48 - Diagnostic Test Radiology reviewed: Image reviewed - Left knee x-ray does not show acute fracture. Discharge - Discharge Clinical Impression: Contusion of left patella Qualifiers: Encounter type: initial encounter Qualified Code(s): S80.02XA - Contusion of left knee, initial encounter Condition: Stable Disposition: HOME, SELF-CARE Additional Instructions: Contusion: Your injury has resulted in a contusion -- a crushing of the deep tissues. No injury to important structures was detected during the physician's exam. Contusions vary in the amount of pain they cause, and in the length of time required for healing. Typically, the area will become bruised, and will remain painful to touch for two or three weeks. However, most patients are back to working and playing within a few days. After the initial period of rest and cold-packs, your symptoms (together with the doctor's recommendations) will determine how rapidly you can get back to full activity. Usually this means "do what feels okay, but don't do things that hurt." If re-examination was recommended, it's important to follow up as instructed. Call the doctor or return any time if pain increases, if swelling becomes severe, if you develop numbness or weakness in an injured extremity, or if any other alarming symptoms occur. Use the knee immobilizer to stabilize your knee so that it does not bend when walking and cause more pain. Use ice packs to the knee today. Take Tylenol and ibuprofen for pain control if needed. You should be able to walk without the immobilizer after a few days. Follow-up with a local primary care provider if not improving. RETURN TO THE EMERGENCY ROOM IF ANY NEW OR WORSENING SYMPTOMS. I personally performed the services described in the documentation, reviewed and edited the documentation which was dictated to the scribe in my presence, and it accurately records my words and actions.
--- NOTE | 2020-09-05 08:52 | RADIOLOGY REPORT (SQ) ---
EXAM DESCRIPTION: KNEE LEFT 4 VIEW IMAGES COMPLETED DATE/TIME: 09/05/2020 8:21 am REASON FOR STUDY: direct blow COMPARISON: None. NUMBER OF VIEWS: Four views. TECHNIQUE: AP, lateral, and both oblique radiographic images acquired of the left knee. LIMITATIONS: None. FINDINGS: MINERALIZATION: Normal. BONES: No acute fracture or dislocation. No worrisome bone lesions. JOINT: No effusion. SOFT TISSUES: Left lateral knee soft tissue swelling. No radio-opaque foreign body. OTHER: No other significant finding. IMPRESSION: Soft tissue swelling. No fracture. No joint effusion TECHNICAL DOCUMENTATION: JOB ID: [id number] 2010 [employer]- All Rights Reserved Reading location - IP/workstation name: [id number]
[2020-09-05 09:18] VITALS: BP 118/80
== END 2020-09-05 09:18 | disposition home or self-care (01) ==
LOC: ER 07:40
DX: S80.02XA Contusion of left knee, initial encounter (principal); F17.210 Nicotine dependence, cigarettes, uncomplicated; W22.01XA Walked into wall, initial encounter
CPT/HCPCS: 99283

== ENCOUNTER 2020-11-06 14:03 | Emergency (ER) | payer OTHER ==
[2020-11-06] MEDS ORDERED: LEVETIRACETAM 1000 MG/NACL-ISO 1,000 MG/100 ML RTUPB IV ONE (14:24)
[2020-11-06] MEDS ORDERED: ONDANSETRON HCL INJ/PF 4 MG/2 ML SDV IV ONE (14:25)
[2020-11-06] MEDS ORDERED: NORMAL SALINE 1000 ML 1,000 ML IV ONE (14:25)
--- NOTE | 2020-11-06 14:44 | ER Document Report ---
ED General - General Chief Complaint: Seizure Stated Complaint: POSSIBLE SYNCOPE Time Seen by Provider: 11/06/20 14:13 Notes: HPI: 40-year-old male who presents today stating that he had a seizure at home. He states it was witnessed by bystanders. 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 He states he was supposed to have a biopsy at [facility] but was unable to get a ride. He states he sup posed to take Keppra but has been "spitting out his dosages" given that he is unable to follow-up with his [facility]. He does state a chronic left-sided headache. He states he has been having some worsening vision for the last 5 years. He is unsure why that is. He states he was supposed to see a specialist but has not been unable to do so. ROS: See HPI All other review of systems reviewed and otherwise negative Reviewed vital signs and nursing note as charted by RN. PHYSICAL EXAM: CONSTITUTIONAL: Alert and oriented and responds appropriately to questions HEAD: Normocephalic; atraumatic EYES: PERRL; full extraocular range of motion without nystagmus ENT: Normal nose; no rhinorrhea; moist mucous membranes; pharynx without lesions noted NECK: Supple without meningismus; non-tender; no cervical lymphadenopathy, no masses CARD: Regular rate and rhythm; no murmurs; symmetric distal pulses RESP: Normal chest excursion without splinting or tachypnea; breath sounds clear and equal bilaterally ABD/GI: Normal bowel sounds; non-distended; soft, non-tender; no palpable organomegaly or masses BACK: The back appears normal and is non-tender to palpation EXT: Normal ROM in all joints; non-tender to palpation; no edema SKIN: No acute lesions noted NEURO: CN 2-12 intact; diffusely weak to all 4 extremities with no unilateral focal findings PSYCH: The patient's mood appears depressed TRAVEL OUTSIDE OF THE [place] IN LAST 30 DAYS: No - Related Data Allergies/Adverse Reactions: banana Allergy (Verified 09/05/20 07:43) cat dander Allergy (Verified 09/05/20 07:43) No Known Drug Allergies Allergy (Verified 09/05/20 07:43) Home Medications: Keppra Past Medical History - Social History Smoking Status: Current Every Day Smoker Chew tobacco use (# tins/day): No Frequency of alcohol use: None Drug Abuse: Marijuana Family History: Reviewed & Not Pertinent - Past Medical History Cardiac Medical History: Denies: Hx Coronary Artery Disease, Hx Heart Attack, Hx Hypertension Pulmonary Medical History: Denies: Hx Asthma, Hx Bronchitis, Hx COPD, Hx Pneumonia Neurological Medical History: 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 Denies: Hx Cerebrovascular Accident Renal/ Medical History: Denies: Hx Peritoneal Dialysis Musculoskeletal Medical History: Denies Hx Arthritis Psychiatric Medical History: Reports: Hx Anxiety, Hx Depression - Immunizations Immunizations up to date: Yes Hx Diphtheria, Pertussis, Tetanus Vaccination: Yes Physical Exam - Vital signs Vitals: Resp 9 L 11/06/20 14:08 Course - Re-evaluation Re-evalutation: 11/06/20 14:44 Given the above history and physical, noncompliance with medications secondary to living situation, I will provide a bolus of Keppra. Given the patient's report of a mass I will review the patient's past medical charts and obtain a CT scan of the head to evaluate for the possibility of expansion and shift. 11/06/20 14:47 Reviewing the patient's chart it appears that the patient has had a left sphenoid mass since 2017. Most recent MRI was 09 December. Patient has multiple visits been noncompliant with medications. He does have the [facility] but supposedly misses appointments often. We will load a bolus dose of Keppra for the patient. 11/06/20 14:48 EKG shows a heart of 65, normal sinus rhythm, normal axis, no obvious ST elevation or depression. I have called and spoken to the social work associate regarding helping with the transfer and transport of the patient divided for follow-up 11/06/20 15:19 I have spoken to social work here. She states that she is spoken to this patient on 3 different occasions. Patient supposedly has had such poor noncompliance with the [facility] that they have had trouble providing him his medications. We will have one of the new community paramedics that helps patients here in the community with follow-up and evaluations come down to talk to the patient. 11/06/20 15:44 Social work [facility] paramedics have seen and assessed the patient. They have come up with an outpatient plan that the patient is very pleased with. Labs and imaging as recorded. We have loaded him with Keppra. I have provided a refill prescription. Patient will be discharged home with strict return precautions. - Vital Signs Vital signs: Temp Pulse Resp BP Pulse Ox 98.4 F 16 115/81 95 11/06/20 14:15 11/06/20 15:18 11/06/20 15:18 11/06/20 15:18 - Laboratory Results Result Diagrams: 11/06/20 14:54 11/06/20 14:54 Laboratory Results Interpreted: 11/06/20 14:54 Sodium 133.6 L Critical Laboratory Results Reviewed: No Critical Results - Radiology Results Critical Radiology Results Reviewed: No Critical Results Discharge - Discharge Clinical Impression: Seizure disorder, Brain mass Condition: Fair Disposition: HOME, SELF-CARE Additional Instructions: Come back immediately for any repeat seizures, fevers, vomiting, weakness or numbness, worsening pain, or any other acute problems. Please follow the outpatient community paramedics plan that we have set up for you and please take the medications as we have prescribed. Prescriptions: Levetiracetam [Keppra 500 mg Tablet] 500 mg PO Q12 #60 tablet
--- NOTE | 2020-11-06 14:53 | RADIOLOGY REPORT (SQ) ---
EXAM DESCRIPTION: CT HEAD WITHOUT IMAGES COMPLETED DATE/TIME: 11/06/2020 2:42 pm REASON FOR STUDY: 1; brain mass with headaches COMPARISON: 07/21/2020 TECHNIQUE: Axial images acquired through the brain without intravenous contrast. Images reviewed wi th bone, brain and subdural windows. Additional sagittal and coronal reconstructions were generated. Images stored on PACS. All CT scanners at this facility use dose modulation, iterative reconstruction, and/or weight based d osing when appropriate to reduce radiation dose to as low as reasonably achievable (ALARA). [facility]: Dose Right [facility]: CareDose [facility]: Dose Right [facility]: Teradose 4D [facility]: [employer] RADIATION DOSE: CT Rad equipment meets quality standard of care and radiation dose reduction techniq ues were employed. CTDIvol: 53.2 mGy. DLP: 1044 mGy-cm. mGy. LIMITATIONS: None. FINDINGS: VENTRICLES: Normal size and contour. CEREBRUM: No masses. No hemorrhage. No midline shift. No evidence for acute infarction. Normal gra y/white matter differentiation. No areas of low density in the white matter. CEREBELLUM: No masses. No hemorrhage. No alteration of density. No evidence for acute infarction. EXTRAAXIAL SPACES: No fluid collections. No masses. ORBITS AND GLOBE: No intra- or extraconal masses. Normal contour of globe without masses. CALVARIUM: No fracture. PARANASAL SINUSES: Chronic left sphenoid sinus disease. SOFT TISSUES: No mass or hematoma. OTHER: No other significant finding. IMPRESSION: NORMAL BRAIN CT WITHOUT CONTRAST. EVIDENCE OF ACUTE STROKE: NO. COMMENT: Quality ID # [id number]: Final reports with documentation of one or more dose reduction techniques (e.g., Automated exposure control, adjustment of the mA and/or kV according to patient size, use of iterative reconstruction technique) TECHNICAL DOCUMENTATION: JOB ID: [id number] 2010 [employer]- All Rights Reserved Reading location - IP/workstation name: [email or web address]
[2020-11-06 15:10] LABS: ABSOLUTE BASOPHILS # (AUTO) 0.1 10^3/uL (0.0-0.2); ABSOLUTE LYMPHOCYTES (AUTO) 3.5 10^3/uL (0.5-4.7); ABSOLUTE MONOCYTES (AUTO) 0.7 10^3/uL (0.1-1.4); ABSOLUTE NEUT (AUTO) 6.1 10^3/uL (1.7-8.2); BASOPHILS % (AUTO) 0.8 % (0-2); EOSINOPHILS % (AUTO) 0.3 % (0-6); HEMATOCRIT 48.1 % (37.9-51.0); HEMOGLOBIN 15.8 g/dL (13.5-17.0); LYMPHOCYTES % (AUTO) 33.6 % (13-45); MEAN CORPUSCULAR HGB CONC 32.7 g/dL (32.0-36.0); MEAN CORPUSCULAR VOLUME 89 fl (80-97); MONOCYTES % (AUTO) 6.7 % (3-13); PLATELET COUNT 286 10^3/uL (150-450); RED BLOOD COUNT 5.44 10^6/uL (4.35-5.55); RED CELL DISTRIBUTION WIDTH 12.8 % (11.5-14.0); SEGMENTED NEUTROPHILS % (AUTO) 58.6 % (42-78); TOTAL CELLS COUNTED % (AUTO) 100 %; WHITE BLOOD COUNT 10.3 10^3/uL (4.0-10.5)
[2020-11-06 15:29] LABS: ALBUMIN 4.1 g/dL (3.5-5.0); ALKALINE PHOSPHATASE 47 U/L (38-126); ANION GAP 6 (5-19); ASPARTATE AMINO TRANSFERASE 29 U/L (17-59); BILIRUBIN,DIRECT 0.1 mg/dL (0.0-0.4); BILIRUBIN,TOTAL 1.3 mg/dL (0.2-1.3); BLOOD UREA NITROGEN 7 mg/dL (7-20); CALCIUM 9.7 mg/dL (8.4-10.2); CARBON DIOXIDE 25 mmol/L (22-30); CHLORIDE 103 mmol/L (98-107); GLUCOSE 87 mg/dL (75-110); POTASSIUM 3.7 mmol/L (3.6-5.0); TOTAL PROTEIN 6.9 g/dL (6.3-8.2)
[2020-11-06 17:12] VITALS: BP 105/76
--- NOTE | 2020-11-06 17:32 | EKG REPORT ---
SEVERITY:- ABNORMAL ECG - SINUS RHYTHM ST ELEVATION MILD-CONSIDER PERICARDITIS : Confirmed by: Charly Solis MD 06-Nov-2020 17:31:56
== END 2020-11-06 17:13 | disposition home or self-care (01) ==
LOC: ER 14:03
DX: G40.909 Epilepsy, unspecified, not intractable, without status epilepticus (principal); G93.9 Disorder of brain, unspecified; R55 Syncope and collapse; F17.200 Nicotine dependence, unspecified, uncomplicated
CPT/HCPCS: 93005; 99285; 96361; 96374; 96375; 36415; 85025; 80053; 70450; 93010; J2405; J7030; J1953